=== PATIENT | female | born 1965 | race Caucasian/White ===

== ENCOUNTER 2016-08-18 16:00 | Observation (INO) ==
[2016-08-18] MEDS ORDERED: Nitroglycerin 0.4 MG TAB.SUBL SL ONE (16:40)
--- NOTE | 2016-08-18 16:43 | Emergency Department Note ---
Disposition Clinical Impression: Unstable angina Disposition: Admitted As Inpatient Condition: Good Referrals: Nickolas Zamora DO [Primary Care Provider] - Forms: ED Satisfaction Letter Time of Disposition: 18:48 Chest Pain HPI - General Chief Complaint: ED Chest Pain Stated Complaint: CP Source: patient, EMS Limitations: no limitations Vital Signs Reviewed: Yes Nursing Notes Reviewed: Yes - History of Present Illness HPI Narrative: 51-year-old female presents emergency room for chest pain. Sudden onset a few hours ago while sitting in a car. Located to the left anterior chest. Described as a pleuritic type pain. States the pain radiates in her left arm and left neck. She has a history of 7 cardiac stents. She states she has been compliant with her medications at home. Her last heart catheter was approximately 2 years ago from what she can remember. She rates her pain 8 out of 10. Sharp in nature. Worse with movement and deep breaths. Worse also with palpation. She denies any vomiting. No fevers. No cough or sputum production. She did not take any nitroglycerin today. She did receive 4 baby aspirin from the squad. Pt complaint: chest pain Severity scale (1-10): 7 - Related Data Home Medications Medication Instructions Recorded Confirmed Alprazolam [Xanax] 1 mg PO TID PRN 02/17/15 08/18/16 Gabapentin [Neurontin] 600 mg PO TID 02/17/15 08/18/16 Paroxetine [Paxil] 45 mg PO DAILY 02/17/15 08/18/16 Ranolazine [Ranexa] 1,000 mg PO BID 02/17/15 08/18/16 Albuterol Sulfate [Ventolin Hfa] 2 puff IH Q4H PRN 10/18/15 08/18/16 Pravastatin Sodium [Pravachol] 40 mg PO HS 07/24/16 08/18/16 BuPROPion XL (24 HR) [Wellbutrin 150 mg PO DAILY 08/18/16 08/18/16 XL] Carvedilol [Coreg] 6.25 mg PO BIDWM 08/18/16 08/18/16 Lisinopril 2.5 mg PO DAILY 08/18/16 08/18/16 Nitroglycerin [Nitrostat] 0.4 mg SL Q5M PRN 08/18/16 08/18/16 hydrOXYzine pamoate [HydrOXYzine 25 mg PO BID PRN 08/18/16 08/18/16 Pamoate] Previous Rx's Medication Instructions Recorded Aspirin Enteric Coated [Aspirin EC] 81 mg PO DAILY #30 tablet. 07/15/15 Furosemide [Lasix] 40 mg PO DAILY #30 tab 07/15/15 Potassium Chloride 10 meq PO DAILY #30 tab.er.prt 07/15/15 Prasugrel [Effient] 10 mg PO DAILY #30 tablet 07/15/15 Isosorbide MONOnitrate (24 HR) 60 mg PO DAILY #0 10/19/15 [Imdur] Allergies Allergy/AdvReac Type Severity Reaction Status Date / Time azithromycin Allergy Anaphylaxis Verified 07/24/16 19:59 latex Allergy Anaphylaxis Verified 07/24/16 19:59 Penicillins [PCN] Allergy Anaphylaxis Verified 07/24/16 19:59 adhesive tape AdvReac Rash Verified 07/24/16 19:59 Review of Systems: Gen.: No fevers or chills or new weakness Eyes: Denies double vision or any vision changes Ears: Denies any otalgia Pharynx: Denies sore throat CV: +chest pain Respiratory: Denies any cough or sputum production. No shortness of breath. GI: Denies any nausea, vomiting, diarrhea, constipation. Denies abdominal pain Neuro: Denies any headache. No problems with ambulation. No numbness. Skin: Denies any rashes or abrasions Psych: Denies any depression or suicidal or homicidal ideation Musculoskeletal: Denies any arthralgias or myalgias All systems ED: reviewed and negative except as stated. Chest Pain PMH - Past Medical History Medical history: Reports: asthma, atrial fibrillation, cardiomyopathy, CHF, coronary artery disease, fibromyalgia, hyperlipidemia, hypertension, kidney stones, migraine, myocardial infarction, TIA Surgical history: Reports: angioplasty/stent, coronary bypass (CABG) Psychiatric history: Reports: anxiety, bipolar, depression, panic disorder, PTSD - Social History Smoking Status: Never smoker Alcohol use: Reports: rarely Drug use: Reports: none Physical Exam - General Limitations: no limitations General appearance: alert, other (pt tearful) - Head Head exam: atraumatic, normocephalic - ENT ENT exam: normal exam - Neck Neck exam: Present: normal inspection - Chest Chest inspection: Present: tenderness (Tenderness of the left anterior chest wall.) - Respiratory Respiratory exam: Present: normal lung sounds bilaterally. Absent: respiratory distress, accessory muscle use - Cardiovascular Cardiovascular exam: Present: regular rate, normal rhythm, normal heart sounds - Abdominal Exam Abdominal exam: Present: soft, Non-Tender - Extremities Exam Extremities exam: Present: normal inspection - Back Exam Back exam: Present: normal inspection - Neurological Exam Neurological exam: Present: alert, oriented X3 - Psychiatric Psychiatric exam: Present: normal affect, normal mood - Skin Skin exam: Present: warm, dry, intact Course Vital Signs Temperature 98.3 F 08/18/16 16:02 Pulse Rate 68 08/18/16 16:02 Respiratory Rate 16 08/18/16 16:02 Blood Pressure 126/83 08/18/16 16:02 O2 Sat by Pulse Oximetry 99 08/18/16 16:02 Temperature 98.3 F 08/18/16 16:02 Pulse Rate 80 08/18/16 17:17 Respiratory Rate 16 08/18/16 17:17 Blood Pressure 109/59 08/18/16 17:17 O2 Sat by Pulse Oximetry 96 08/18/16 17:17 Oxygen Delivery Oxygen Delivery Room Air Chest Pain - MDM Narrative Medical decision making narrative: Significant coronary disease history. We will admit for observation. For set of enzymes are negative. EKG unremarkable. Chest x-ray negative. Nitroglycerin helped. Aspirin given already. - Medical Records Medical records reviewed: Yes I reviewed the patient's medical records. - Lab Data Lab results reviewed: Yes I reviewed the patient's lab results. Result diagrams: 08/18/16 17:09 08/18/16 17:09 Lab Results 08/18/16 08/18/16 08/18/16 Range/Units 17:09 17:09 17:09 WBC 5.7 (4.3-11.1) K/mcL RBC 4.54 (3.82-4.97) M/mcL Hgb 13.1 (11.5-15.4) g/dL Hct 38.6 (35.3-44.9) % MCV 85.0 (83.0-100.0) fL MCH 28.9 (28.0-33.3) pg MCHC 33.9 (31.6-35.5) g/dL RDW 13.7 (11.5-14.5) % Plt Count 188 (140-400) K/mcL MPV 11.1 (9.4-12.4) fL Immature Gran % 0.2 (0-4) % Seg Neutrophils % 61.7 % Lymphocytes % 25.6 % Monocytes % 7.2 % Eosinophils % 4.6 % Basophils % 0.7 % Neutrophils # 3.5 (1.6-8.9) K/mcL Lymphocytes # 1.5 (0.6-4.6) K/mcL Monocytes # 0.4 (0.0-1.3) K/mcL Eosinophils # 0.3 (0.0-0.6) K/mcL Basophils # 0.0 (0.0-0.2) K/mcL PT 13.1 H (9.4-12.1) Seconds INR 1.2 APTT 31.0 (26.0-36.0) Seconds D-Dimer 267 (0-500) ng/mLFEU Sodium 139 (136-145) mEq/L Potassium 3.8 (3.5-4.5) mEq/L Chloride 105 (98-109) mEq/L Carbon Dioxide 23 (19-29) mEq/L BUN 14 (7-20) mg/dL Creatinine 0.81 (0.57-1.11) mg/dL Est GFR ( Amer) > 60 (> 60) Est GFR (Non-Af Amer) > 60 (> 60) BUN/Creatinine Ratio 17 (6-26) Glucose 84 (70-99) mg/dL Calculated Osmolality 288 (280-300) Calcium 9.3 (8.6-10.8) mg/dL Troponin I (0-0.03) ng/mL 08/18/16 Range/Units 17:09 WBC (4.3-11.1) K/mcL RBC (3.82-4.97) M/mcL Hgb (11.5-15.4) g/dL Hct (35.3-44.9) % MCV (83.0-100.0) fL MCH (28.0-33.3) pg MCHC (31.6-35.5) g/dL RDW (11.5-14.5) % Plt Count (140-400) K/mcL MPV (9.4-12.4) fL Immature Gran % (0-4) % Seg Neutrophils % % Lymphocytes % % Monocytes % % Eosinophils % % Basophils % % Neutrophils # (1.6-8.9) K/mcL Lymphocytes # (0.6-4.6) K/mcL Monocytes # (0.0-1.3) K/mcL Eosinophils # (0.0-0.6) K/mcL Basophils # (0.0-0.2) K/mcL PT (9.4-12.1) Seconds INR APTT (26.0-36.0) Seconds D-Dimer (0-500) ng/mLFEU Sodium (136-145) mEq/L Potassium (3.5-4.5) mEq/L Chloride (98-109) mEq/L Carbon Dioxide (19-29) mEq/L BUN (7-20) mg/dL Creatinine (0.57-1.11) mg/dL Est GFR ( Amer) (> 60) Est GFR (Non-Af Amer) (> 60) BUN/Creatinine Ratio (6-26) Glucose (70-99) mg/dL Calculated Osmolality (280-300) Calcium (8.6-10.8) mg/dL Troponin I 0.01 (0-0.03) ng/mL - Radiology Data Radiology results reviewed: Yes I reviewed the patient's radiology results. - EKG Data EKG attestation: Yes I reviewed and interpreted this EKG. EKG results narrative: EKG shows a rate of 67. Normal sinus rhythm. Left axis deviation. SC interval 138. QRS 98. QTc 458. No significant changes compared to previous.
[2016-08-18 17:40] LABS: Basophils % 0.7 %; Eosinophils # 0.3 K/mcL (0.0-0.6); Eosinophils % 4.6 %; Hematocrit 38.6 % (35.3-44.9); Hemoglobin 13.1 g/dL (11.5-15.4); Immature Granulocytes % 0.2 % (0-4); Lymphocytes # 1.5 K/mcL (0.6-4.6); Lymphocytes % 25.6 %; Mean Corpuscular HGB Conc 33.9 g/dL (31.6-35.5); Mean Corpuscular Hemoglobin 28.9 pg (28.0-33.3); Mean Platelet Volume 11.1 fL (9.4-12.4); Monocytes # 0.4 K/mcL (0.0-1.3); Monocytes % 7.2 %; Neutrophils # 3.5 K/mcL (1.6-8.9); Platelet Count 188 K/mcL (140-400); Red Blood Count 4.54 M/mcL (3.82-4.97); Red Cell Distribution Width 13.7 % (11.5-14.5); Segmented Neutrophils % 61.7 %
[2016-08-18 17:47] LABS: INR 1.2; Prothrombin Time 13.1 Seconds (9.4-12.1)
[2016-08-18 17:56] LABS: BUN/Creatinine Ratio 17 (6-26); Blood Urea Nitrogen 14 mg/dL (7-20); Calcium 9.3 mg/dL (8.6-10.8); Carbon Dioxide 23 mEq/L (19-29); Chloride 105 mEq/L (98-109); Glucose 84 mg/dL (70-99); Osmolality,Calculated 288 (280-300); Potassium 3.8 mEq/L (3.5-4.5); Sodium 139 mEq/L (136-145); eGFR For African Americans > 60 (> 60); eGFR For Non-African Americans > 60 (> 60)
[2016-08-18] MEDS ORDERED: *HR* Morphine 2 MG/ML SYRINGE IVP ONE (18:35)
[2016-08-18] MEDS ORDERED: hydrOXYzine pamoate 25 MG CAPSULE PO PRN (21:09)
[2016-08-18] MEDS ORDERED: Nitroglycerin 0.4 MG TAB.SUBL SL PRN (21:09)
[2016-08-18] MEDS ORDERED: Ibuprofen 400 MG TABLET PO PRN (21:12)
[2016-08-18] MEDS ORDERED: Naloxone 0.4 MG/ML INJ IVP PRN (21:12)
--- NOTE | 2016-08-18 21:18 | Internal Med History&Physical ---
Date of Encounter: 08/18/16 Time of Encounter: 21:16 Assessment and Plan (1) Chest pain Current visit: No Status: Acute Schedule stress test in the morning Continue aspirin, Effient, hold beta [place] for now, Ranexa, Imdur, nitroglycerin as needed, stating Monitor with telemetry, troponins, lipid panel in the morning Limited echocardiogram, nothing by mouth after midnight for stress test Omeprazole for GI prophylaxis and Lovenox for DVT prophylaxis. The patient will be admitted for observation. She is a full code. Time spent on this admission 40 minutes. Qualifiers: Chest pain type: precordial chest pain Qualified Code(s): R07.2 - Precordial pain (2) Fibromyalgia Current visit: Yes Status: Acute Stable (3) A-fib Current visit: No Status: Acute anticoagulation, continues to take aspirin and effient Qualifiers: Atrial fibrillation type: paroxysmal Qualified Code(s): I48.0 - Paroxysmal atrial fibrillation (4) CAD in [place] artery Current visit: No Status: Acute Hold beta [place]/carvedilol for stress test in the morning (5) Anxiety Current visit: No Status: Chronic (6) HTN (hypertension) Current visit: No Status: Chronic Stable Qualifiers: Hypertension type: essential hypertension Qualified Code(s): I10 - Essential (primary) hypertension Internal Medicine - H&P: HPI Chief complaint: Chest pain Admitted From: Emergency Dept History of present illness: Ms. Bartlett is a 51 year old female with a past medical history of CABG with history of 7 stents, last stent was in July 2015 where she had a drug-eluting stent on the SVG to PDA, hypertension, hyperlipidemia, systolic CHF with an ejection fraction of 35-40% and ischemic cardiomyopathy, patient started complaining of left-sided chest pressure radiated to the left neck at 2:30 in the afternoon while she was sitting in the car, lasted for an hour was an 8 out of 10 in intensity and now it decreased down to 5 out of 10 in intensity. She says that she has fibromyalgia and also she gets confused with the types of pains that she has at the moment. Has been under a lot of stress lately. Her first troponin is unremarkable, chest x-ray is not showing any acute cardiopulmonary disease and EKG is unchanged. Patient received aspirin. [place] some palpitations earlier today and some shortness of breath. Past Med Surg Social Fam HX - Past Medical History Medical history: asthma, atrial fibrillation (Not on anticoagulation), cardiomyopathy, CHF (Systolic CHF with ejection fraction of 35-40%), coronary artery disease (History of CABG and 7 stents), fibromyalgia, hyperlipidemia, hypertension, kidney stones, migraine, myocardial infarction, TIA, other ( Fibromyalgia, nephrolithiasis, migraines, TIAs, bipolar disorder, PTSD, anxiety , depression, neuropathy, asthma, paroxysmal atrial fibrillation not on anticoagulation) Psychiatric history: anxiety, bipolar, depression, panic disorder, PTSD - Past Surgical History Surgical History: angioplasty/stent, , cholecystectomy, coronary bypass (CABG) - Social History Smoking Status: Never smoker Smokeless Tobacco Status: No Alcohol use: rarely Drug use: none - Family History Mother Living Status: Hx Family Cardiac Disorders: Yes Hx Family Respiratory Disorders: No Hx Family Cancer: No Hx Family GI Disorders: No Hx Family Endocrine Disorder: Yes (Diabetic) Hx Family Neuromuscular Disorders: Yes Hx Family Neurologic Disorders: Yes Hx Family HEENT Disorders: No Hx Family Autoimmune Disorders: No Father Living Status: Hx Family Cardiac Disorders: Yes Hx Family Neurologic Disorders: Yes - Additional Family History Additional family history: Mother with diabetes and CAD, father with heart disease Internal Medicine - H&P: Meds Alprazolam [Xanax] 1 mg PO TID PRN 02/17/15 [History] Gabapentin [Neurontin] 600 mg PO TID 02/17/15 [History] Paroxetine [Paxil] 45 mg PO DAILY 02/17/15 [History] Ranolazine [Ranexa] 1,000 mg PO BID 02/17/15 [History] Aspirin Enteric Coated [Aspirin EC] 81 mg PO DAILY #30 tablet.dr 07/15/15 [Rx] Furosemide [Lasix] 40 mg PO DAILY #30 tab 07/15/15 [Rx] Potassium Chloride 10 meq PO DAILY #30 tab.er.prt 07/15/15 [Rx] Prasugrel [Effient] 10 mg PO DAILY #30 tablet 07/15/15 [Rx] Albuterol Sulfate [Ventolin Hfa] 2 puff IH Q4H PRN 10/18/15 [History] Isosorbide MONOnitrate (24 HR) [Imdur] 60 mg PO DAILY #0 10/19/15 [Rx] Pravastatin Sodium [Pravachol] 40 mg PO HS 07/24/16 [History] BuPROPion XL (24 HR) [Wellbutrin XL] 150 mg PO DAILY 08/18/16 [History] Carvedilol [Coreg] 6.25 mg PO BIDWM 08/18/16 [History] Lisinopril 2.5 mg PO DAILY 08/18/16 [History] Nitroglycerin [Nitrostat] 0.4 mg SL Q5M PRN 08/18/16 [History] hydrOXYzine pamoate [HydrOXYzine Pamoate] 25 mg PO BID PRN 08/18/16 [History] Allergies azithromycin Allergy (Verified 07/24/16 19:59) Anaphylaxis latex Allergy (Verified 07/24/16 19:59) Anaphylaxis Penicillins [PCN] Allergy (Verified 07/24/16 19:59) Anaphylaxis adhesive tape Adverse Reaction (Verified 07/24/16 19:59) Rash All Systems PM: A 10-system review of systems was performed and is negative for pertinent findings except as documented above in the HPI. Review of systems: Continues to have chest pressure. Other systems out of the 10 reviewed were negative - Constitutional Vitals: Temp Pulse Resp BP Pulse Ox 98.3 F 69 24 124/81 99 08/18/16 21:02 08/18/16 21:02 08/18/16 21:02 08/18/16 21:02 08/18/16 21:02 General appearance: Present: A&O X 3, obese - Head Head exam: Present: atraumatic, normocephalic - Eye Eye exam: Present: PERRL, conjuntiva pink, sclera anicteric Pupils: Present: PERRL - Neck Neck exam general surgery: Present: supple, trachea midline. Absent: lymphadenopathy - Respiratory Respiratory exam: Present: CTAB. Absent: accessory muscle use, rales, rhonchi, wheezes - Cardiovascular Cardiovascular exam: Present: RRR, +S1, +S2. Absent: diastolic murmur, gallop, rubs, systolic murmur - GI/Abdominal GI/Abdominal exam: Present: normal bowel sounds, soft, no peritoneal signs. Absent: distended, tenderness - Extremities Exam Extremities exam: Present: warm, radial pulses palpable and symetrical. Absent : calf tenderness, cyanotic, pedal edema - Neurological Exam Neurological exam: Present: CN II-XII intact, oriented X3, no focal deficits. Absent: pronater drift, facial droop, speech deficit - Skin Skin exam: Present: dry, intact Internal Med - H&P Results - Labs CBC & Chem 7: 08/18/16 17:09 08/18/16 17:09
[2016-08-18] MEDS: ALPRAZolam 1 MG TABLET PO PRN (21:51)
[2016-08-18] MEDS: *HR* OxyCODONE Immed Rel 5 MG TABLET PO PRN (21:51)
[2016-08-18] MEDS: 0.9 % Sodium Chloride 1,000 ML IVC SCH (21:51)
[2016-08-18] MEDS: *HR* Enoxaparin 40 MG/0.4 ML SYRINGE SQ SCH (21:52)
[2016-08-18] MEDS: Ondansetron 4 MG/2 ML VIAL IVP PRN (21:52)
[2016-08-19] MEDS: *HR* OxyCODONE Immed Rel 5 MG TABLET PO PRN ×4 (04:29→23:26)
[2016-08-19 04:45] LABS: BUN/Creatinine Ratio 16 (6-26); Blood Urea Nitrogen 15 mg/dL (7-20); Calcium 9.1 mg/dL (8.6-10.8); Carbon Dioxide 30 mEq/L (19-29); Chloride 106 mEq/L (98-109); Cholesterol 224 mg/dL (< 200); Glucose 95 mg/dL (70-99); HDL Cholesterol 45 mg/dL (40-59); LDL Cholesterol,Calculated 140 mg/dL (0-99); Osmolality,Calculated 291 (280-300); Potassium 4.3 mEq/L (3.5-4.5); Sodium 140 mEq/L (136-145); Triglycerides 194 mg/dL (< 150); eGFR For African Americans > 60 (> 60); eGFR For Non-African Americans > 60 (> 60)
[2016-08-19] MEDS: *HR* Enoxaparin 40 MG/0.4 ML SYRINGE SQ SCH (06:08)
[2016-08-19] MEDS ORDERED: Regadenoson 0.4 MG/5 ML SYRINGE IVP ONE (06:22)
[2016-08-19] MEDS ORDERED: Furosemide 20 MG TABLET PO SCH (09:00)
[2016-08-19] MEDS: Ondansetron 4 MG/2 ML VIAL IVP PRN (10:30)
--- NOTE | 2016-08-19 11:14 | Electrocardiograph Report ---
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
[2016-08-19] MEDS: Acetaminophen 325 MG TABLET PO PRN ×2 (11:30→22:23)
--- NOTE | 2016-08-19 12:22 | Nuclear Medicine Stress Report ---
Regadenoson Nuclear Stress Name: Mandi Bartlett Date of Study: 08/19/2016 Date: 1965 Ht: 61.0 in Medical Record#: [id number] Age: 51 Wt: 185.0 lb Gender: Female Order #: [id number] Location: [facility] Room: [facility] Supervising Provider: Vikash Magallon CNP Reading Physician: Ad Sawyer MD, LOCATED [facility]IN [facility] Ordering Physician: Gale Mann CNP Primary Care Physician: Nickolas Zamora DO Stress Technologist: Annika Swenson, LANGUAGE INSTRUCTOR,[facility] [employer] I Laborer: Gavin Mohamud Indications: Chest Pain, Coronary Artery Disease Impression: Patient reported mild-moderate chest pain prior to the study. Chest pain did not change during the stress test. Gated LVEF = 41%. Medium-large, moderate-severe intensity, predominantly fixed perfusion defect involving the mid-apical anterior wall, mid anteroseptum, apical septum, and apex. Findings consistent with myocardial infarction with mild delfina-infarct ischemia. Small-medium, moderate intensity, reversible perfusion defect involving the basal-mid inferolateral wall. Findings consistent with reversible myocardial ischemia. Abnormal results were discussed with the primary service who requested cardiology consult. Cardiology consult team is aware. History: Hypertension Hypercholesteremia Prior PCI History of Coronary Artery Bypass Surgery Stress Test Summary: Stress Test Type: Pharmacologic Regadenoson 0.4mg/5ml given IV Baseline Information: Initial Heart Rate: 66 Blood Pressure: 108/76 Stress Information: Test Terminated Due to (primary): As per protocol Maximum Blood Pressure: 104/62 Maximum Heart Rate: 81 Percent Maximum Heart Rate Achieved: 48 Double Product: [id number] Symptoms: Chest pain Nuclear Summary: SPECT myocardial perfusion imaging using Tc99m Sestamibi given intravenously was performed at rest and following cardiac stress testing. The resting images were obtained following initial dose of 11.8 mCi. Following stress an additional dose of 33.9 mCi was given at peak exercise or 30 seconds post regadenoson infusion. Findings: Stress Note * Resting ECG demonstrated sinus rhythm, low voltage in precordial leads, non-specific ST-T wave abnormality. * No baseline arrhythmias were noted. * Patient reported mild-moderate chest pain prior to the study. Chest pain did not change during the stress test. * No arrhythmias were noted during stress. * No significant ECG changes with regadenoson. Hemodynamic responses * Normal hemodynamic responses to pharmacologic stress. Study Quality * Study quality is good. Gated EF % * Gated LVEF = 41%. Left Ventricle * The left ventricle is not dilated. * Medium-large, moderate-severe intensity, predominantly fixed perfusion defect involving the mid-apical anterior wall, mid anteroseptum, apical septum, and apex. Findings consistent with myocardial infarction with mild delfina-infarct ischemia. * Small-medium, moderate intensity, reversible perfusion defect involving the basal-mid inferolateral wall. Findings consistent with reversible myocardial ischemia. TID * No evidence of transient ischemic dilatation. Updated by Ad Sawyer MD, FACC on 08/19/2016 12:13:47 PM electronically signed on 08/19/2016 12:14:50 PM with status of Final
[2016-08-19] MEDS: Isosorbide MONOnitrate (24 HR) 60 MG TAB.ER.24H PO SCH (13:30)
[2016-08-19] MEDS: Ranolazine 500 MG TAB.ER.12H PO SCH ×2 (13:31→20:54)
[2016-08-19] MEDS: Aspirin Enteric Coated 81 MG Tablet PO SCH (13:31)
[2016-08-19] MEDS: BuPROPion XL (24 HR) 150 MG TABLET PO SCH (13:31)
[2016-08-19] MEDS: Gabapentin 300 MG CAPSULE PO SCH ×3 (13:32→20:53)
--- NOTE | 2016-08-19 13:36 | Cardiology Consult Note ---
Date of Encounter: 08/19/16 Time of Encounter: 13:10 Assessment and Plan (1) Chest pain Current Visit: Yes Status: Acute Patient presents with atypical chest pain. Troponin negative x3. ECG unchanged from previous. Abnormal nuclear stress test findings correlate with known obstructive CAD not amendable to revascularization. C and stress test reviewed with interventional Cardiology. She is now chest pain free; reports presenting symptoms were not similar to previous NH; suspect symptoms precipitated by prolonged heat exposure. She is agreeable to medical management, will continue current home CV medications including asa, statin, betablocker, plavix, nitrates, and ranexa. NO further cardiac testing necessary at this time. Close outpatient follow-up with [facility], follows with Dr. Cevallos. Will coordinate appt. Qualifiers: Chest pain type: chest pain on breathing Qualified Code(s): R07.1 - Chest pain on breathing (2) Ischemic cardiomyopathy Current Visit: Yes Status: Chronic Hx of severe 3v CAD s/p CABG, PCI. Most recent TTE EF 35-40%. Appears euvolemic upon exam. Gated EF per nuclear stress=41%. Continue GDMT for CHF including betablocker, ACEi, diuretics, and nitrates. Will resume home coreg now. Follow-up in the outpatient setting with Dr. Cevallos. Discussion w patient/family: The assessment and plan as outlined above was discussed with the patient and/or family members who expressed understanding and agreement. All questions were answered. Thank you for involving us in the care of your patient. Please call with any questions. The patient will be discussed and reviewed with Dr. Mitesh Babb, changes to be made accordingly. History of Present Illness Consult date: 08/19/16 Requesting physician: Hermelinda Sommer Consult reason: Abnormal stress test Chief complaint: chest pain History of present illness: Ms. Bartlett is a 51 year old female with PMHx significant for CAD s/p CABG (2006 ) and subsequent PCI, ICMP with systolic dysfunction, dyslipidemia, HTN, and fibromyalgia who presented to the [facility] with left-sided chest fullness/ heaviness. Reports discomfort radiated down arm which felt heavy; associated symptoms include fatigue and dyspnea. Symptoms started after she had been sitting in a car outside in the heat for nearly 1 hour yesterday evening. Reports symptoms improved with IV morphine given in the ED; at that time, arm pain was worsened with movement or deep breaths. ECG unchanged from prior, troponin negative. Nuclear stress test ordered today and found to be abnormal-- Cardiology consulted. Upon exam, she is chest pain free. Reports generalized body aches and pain; states stems from fibromyalgia. Previous studies / procedures: TTE 12/19/2013: EF 40%. Moderate diastolic dysfunction. No significant valvular dysfunction. [facility] 08/10/2014: Left main normal. LAD proximal 100% stenosis. Circumflex mid 100% stenosis. RCA proximal 100% stenosis. RPDA 80% stenosis (2 BMSs placed). SAVAGE to mid LAD patent. Sequential SVG to OM1, OM 2 patent. SVG to RPDA patent. EF 35%. TTE 07/13/2015: EF 30-35%. Severe global hypokinesis. Apical segments not well visualized. No significant valvular dysfunction. RVSP was not well obtained. [facility] 07/12/2015: Left main normal. LAD mid 100% stenosis. Circumflex proximal 80 % and mid 99% stenosis (left and left collaterals). RCA 100% stenosis. SAVAGE to LAD patent. Sequential saphenous vein graft to OM1 and OM 2 occluded (attempted PCI performed, but was unsuccessful. SVG to PDA patent, but distal segment has 80% ISR. [facility] 07/13/2015: Successful DAMEON placement in the body of the SVG to RPDA graft ( within previous stent) TTE 10/12/2015: EF 35-40%. Mild diastolic dysfunction. No significant valvular dysfunction. Past Med Surg Social Fam HX - Past Medical History Attestation: Yes The following information was validated with the patient. Source: patient, old records reviewed Medical history: asthma, cardiomyopathy, CHF (Systolic CHF with ejection fraction of 35-40%), coronary artery disease (History of CABG and 7 stents), fibromyalgia, hyperlipidemia, hypertension, kidney stones, migraine, myocardial infarction, TIA, other (Fibromyalgia, nephrolithiasis, migraines, TIAs, bipolar disorder, PTSD, anxiety, depression, neuropathy, asthma) Psychiatric history: anxiety, bipolar, depression, panic disorder, PTSD - Past Surgical History Surgical History: angioplasty/stent, , cholecystectomy, coronary bypass (CABG) - Social History Smoking Status: Never smoker Smokeless Tobacco Status: No Alcohol use: rarely Drug use: none - Family History Mother Living Status: Hx Family Cardiac Disorders: Yes Hx Family Respiratory Disorders: No Hx Family Cancer: No Hx Family GI Disorders: No Hx Family Endocrine Disorder: Yes (Diabetic) Hx Family Musculoskeletal Disorders: No Hx Family Neuromuscular Disorders: Yes Hx Family Neurologic Disorders: Yes Hx Family HEENT Disorders: No Hx Family Autoimmune Disorders: No Father Living Status: Hx Family Cardiac Disorders: Yes Hx Family Neurologic Disorders: Yes Medications and Allergies Alprazolam [Xanax] 1 mg PO TID PRN 02/17/15 [History] Gabapentin [Neurontin] 600 mg PO TID 02/17/15 [History] Paroxetine [Paxil] 45 mg PO DAILY 02/17/15 [History] Ranolazine [Ranexa] 1,000 mg PO BID 02/17/15 [History] Aspirin Enteric Coated [Aspirin EC] 81 mg PO DAILY #30 tablet.dr 07/15/15 [Rx] Furosemide [Lasix] 40 mg PO DAILY #30 tab 07/15/15 [Rx] Potassium Chloride 10 meq PO DAILY #30 tab.er.prt 07/15/15 [Rx] Prasugrel [Effient] 10 mg PO DAILY #30 tablet 07/15/15 [Rx] Albuterol Sulfate [Ventolin Hfa] 2 puff IH Q4H PRN 10/18/15 [History] Isosorbide MONOnitrate (24 HR) [Imdur] 60 mg PO DAILY #0 10/19/15 [Rx] Pravastatin Sodium [Pravachol] 40 mg PO HS 07/24/16 [History] BuPROPion XL (24 HR) [Wellbutrin XL] 150 mg PO DAILY 08/18/16 [History] Carvedilol [Coreg] 6.25 mg PO BIDWM 08/18/16 [History] Lisinopril 2.5 mg PO DAILY 08/18/16 [History] Nitroglycerin [Nitrostat] 0.4 mg SL Q5M PRN 08/18/16 [History] hydrOXYzine pamoate [HydrOXYzine Pamoate] 25 mg PO BID PRN 08/18/16 [History] Allergies azithromycin Allergy (Verified 07/24/16 19:59) Anaphylaxis latex Allergy (Verified 07/24/16 19:59) Anaphylaxis Penicillins [PCN] Allergy (Verified 07/24/16 19:59) Anaphylaxis adhesive tape Adverse Reaction (Verified 07/24/16 19:59) Rash All Systems Review: A 10-system review of systems was performed and is negative for pertinent findings except as documented above in the HPI. - Cardiovascular Cardiovascular: as per HPI Physical Examination Vital Signs, Last 4 Hours Temp Pulse Resp BP Pulse Ox 08/19/16 12:12 99/56 08/19/16 11:13 98.2 F 71 14 96/65 98 General: Conversant, No Apparent Distress HEENT: Atraumatic, Normocephaly, Mucus Membranes Moist Cardiac: Reg Rate and Rhythm, Normal S1 and S2 Lungs: Normal Breath Sounds, No Wheeze, Rales, Rhonchi Neuro: Alert and responsive, No focal deficits noted Abdomen: Soft, Non-Tender Skin: No rashes noted on visualized skin Musculoskeletal: No Chest Wall Tenderness Extremities: No Edema, Normal Pulses Results 08/18/16 17:09 08/19/16 03:45 Lab Results 08/18/16 08/19/16 08/19/16 21:40 03:45 03:45 Sodium 140 Potassium 4.3 Chloride 106 Carbon Dioxide 30 H BUN 15 Creatinine 0.92 Glucose 95 Calcium 9.1 Troponin I 0.01 0.01 Active Medications Acetaminophen (Tylenol) 650 mg PO Q6HR PRN PRN Reason: Mild Pain (1-3) Stop: 02/17/17 21:13 Last Admin: 08/19/16 11:30 Dose: 650 mg Alprazolam (Xanax) 1 mg PO TID PRN; Protocol PRN Reason: Anxiety Stop: 02/17/17 21:10 Last Admin: 08/18/16 21:51 Dose: 1 mg Aspirin (Aspirin Ec) 81 mg PO DAILY [facility] Stop: 02/18/17 09:01 Last Admin: 08/19/16 13:31 Dose: 81 mg Bupropion HCl (Wellbutrin Xl) 150 mg PO DAILY [facility] Stop: 02/18/17 09:01 Last Admin: 08/19/16 13:31 Dose: 150 mg Enoxaparin Sodium (Lovenox) 40 mg SQ 0600 [facility] PRN Reason: Protocol Stop: 02/17/17 21:25 Last Admin: 08/19/16 06:08 Dose: 40 mg Furosemide (Lasix) 40 mg PO DAILY [facility] Stop: 02/18/17 09:01 Last Admin: 08/19/16 13:32 Dose: Not Given Gabapentin (Neurontin) 600 mg PO TID [facility] Stop: 02/18/17 09:01 Last Admin: 08/19/16 13:34 Dose: Not Given Hydroxyzine Pamoate (Hydroxyzine Pamoate) 25 mg PO BID PRN PRN Reason: Anxiety Stop: 02/17/17 21:10 Sodium Chloride (0.9 % Sodium Chloride) 1,000 mls @ 60 mls/hr IVC .[id number] [facility] Stop: 02/17/17 21:16 Last Admin: 08/18/16 21:51 Dose: 60 mls/hr Ibuprofen (Motrin) 400 mg PO Q6HR PRN PRN Reason: Mild Pain (1-3) Stop: 02/17/17 21:13 Isosorbide Mononitrate (Imdur) 60 mg PO DAILY [facility] Stop: 02/18/17 09:01 Last Admin: 08/19/16 13:30 Dose: 60 mg Lisinopril (Zestril) 2.5 mg PO DAILY [facility] Stop: 02/18/17 09:01 Last Admin: 08/19/16 13:32 Dose: Not Given Naloxone HCl (Narcan) 0.4 mg IVP Q2MIN PRN PRN Reason: Opioid Reversal Stop: 02/17/17 21:13 Nitroglycerin (Nitroglycerin) 0.4 mg SL Q5M PRN PRN Reason: Chest Pain Stop: 02/17/17 21:10 Omeprazole (Prilosec) 20 mg PO DAILY@0630 [facility] PRN Reason: Protocol Stop: 02/18/17 06:31 Last Admin: 08/19/16 06:08 Dose: 20 mg Ondansetron HCl (Zofran) 4 mg IVP Q8HR PRN PRN Reason: Nausea And Vomiting Stop: 02/17/17 21:13 Last Admin: 08/19/16 10:30 Dose: 4 mg Oxycodone HCl (Roxicodone) 5 mg PO Q6HR PRN PRN Reason: Moderate Pain (4-6) Stop: 02/17/17 21:13 Last Admin: 08/19/16 10:31 Dose: 5 mg Paroxetine HCl (Paxil) 45 mg PO DAILY [facility] PRN Reason: Protocol Stop: 02/18/17 09:01 Last Admin: 08/19/16 13:30 Dose: 45 mg Potassium Chloride (Potassium Chloride) 10 meq PO DAILY [facility] Stop: 02/18/17 09:01 Last Admin: 08/19/16 13:31 Dose: 10 meq Prasugrel (Effient) 10 mg PO DAILY [facility] Stop: 02/18/17 09:01 Last Admin: 08/19/16 13:31 Dose: 10 mg Ranolazine (Ranexa) 1,000 mg PO BID [facility] Stop: 02/18/17 09:01 Last Admin: 08/19/16 13:31 Dose: 1,000 mg Simvastatin (Zocor) 40 mg PO HS [facility] Stop: 02/18/17 21:01 - Imaging and Cardiology Stress Test: report reviewed Echo: report reviewed Cardiac cath: report reviewed Other Results: Tele review: avg HR=77 SR. No significant event noted. Min=55 bpm. - EKG Interpretation EKG results cardiology: personally reviewed Consult Discharge Plan - Plan Referrals: Nickolas Zamora DO [Primary Care Provider] -
--- NOTE | 2016-08-19 18:05 | Internal Med Progress Note ---
Date of Encounter: 08/19/16 Time of Encounter: 13:30 - Assessment and plan (1) Chest pain Current Visit: Yes Status: Acute Assessment and plan: Patient continues to endorse chest pressure. Chest x-ray negative. Troponin negative 3. No acute ECG changes. Abnormal stress test noted, cardiology brought on board who proceeded with medical management and have cleared her for outpatient follow-up. Patient still having chest pressure, will observe her overnight. She is requesting narcotic pain medication which is not indicated at this time. Patient stating this chest pain does not feel similar to her prior bouts of chest pain. Continue ibuprofen and oxycodone for pain. ITS Impressions Chest X-Ray 08/18/16 16:40 IMPRESSION: No evidence of acute cardiopulmonary disease. D/ / Adam Westbrook MD / Adam Westbrook MD Interpreting Provider: Adam Westbrook MD Regadenosen nuclear stress test impression: Patient reported mild-moderate chest pain prior to the study. Chest pain did not change during the stress test. Gated LVEF equals 41%. Medium-large, moderate-severe intensity, predominantly fixed perfusion defect involving the mid-apical anterior wall, mid anterioseptum, apical septum, and apex. Findings consistent with myocardial infarction with mild delfina-infarct ischemia. Small-medium, moderate intensity, reversible perfusion defect involving the basal-mid inferior lateral wall. Findings consistent with reversible myocardial ischemia. Qualifiers: Chest pain type: chest pain on breathing Qualified Code(s): R07.1 - Chest pain on breathing (2) Ischemic cardiomyopathy Current Visit: Yes Status: Chronic Assessment and plan: Currently euvolemic on examination. Gentle IV fluids for hypotension. Most recent echocardiogram with ejection fraction of 35-40%. History of severe 3 vessel CAD status post CABG and stent 7. Abnormal stress test noted. Cardiology on board, recommend medical management. (3) Fibromyalgia Current Visit: Yes Status: Chronic Assessment and plan: Patient complaining of her chronic fibromyalgia pain including her neck, her head, and both legs. OARRS report checks out okay. (4) DVT prophylaxis Current Visit: No Status: Acute Assessment and plan: Subcutaneous Lovenox (5) Anxiety Current Visit: No Status: Chronic Assessment and plan: Continue home Xanax (6) CAD (coronary artery disease) Current Visit: No Status: Chronic Qualifiers: Coronary Disease-Associated Artery/Lesion type: bypass graft [place] vs. transplanted heart: [place] heart Associated angina: with stable angina Qualified Code(s): I25.708 - Atherosclerosis of coronary artery bypass graft(s) , unspecified, with other forms of angina pectoris (7) HTN (hypertension) Current Visit: No Status: Chronic Assessment and plan: Has been hypotensive since arrival. At home, patient is on lisinopril 2.5 mg daily, Ranexa 1000 mg twice a day, Imdur 60 mg daily, furosemide 40 mg daily, carvedilol 6.25 mg twice a day. Heart rate is stable with rate in the low 70s. We will hold her lisinopril, furosemide, and her carvedilol and monitor closely. Gentle IV fluids for hypotension Qualifiers: Hypertension type: essential hypertension Qualified Code(s): I10 - Essential (primary) hypertension (8) Hypotension Current Visit: No Status: Acute Assessment and plan: See prior note for hypertension Qualifiers: Hypotension type: unspecified hypotension type Qualified Code(s): I95.9 - Hypotension, unspecified (9) Hx of CABG Current Visit: No Status: Chronic - Subjective Interval history: Patient seen and examined. On examination, patient initially asleep in bed. Patient awakened easily to voice and complained of "fibromyalgia pain." She complained of pain to her head, neck, legs. She also endorsed continued chest pressure and was asking for IV pain medication. - Constitutional Vitals: Temp Pulse Resp BP Pulse Ox 97.4 F L 73 16 99/65 98 08/19/16 14:55 08/19/16 14:55 08/19/16 14:55 08/19/16 15:01 08/19/16 14:55 General appearance: Present: mild distress, A&O X 3, answers questions appropriately - Head Head exam: Present: atraumatic, normocephalic - Eye Eye exam: Present: PERRL, conjuntiva pink, sclera anicteric Pupils: Present: PERRL - Neck Neck exam general surgery: Present: supple, trachea midline. Absent: lymphadenopathy - Respiratory Respiratory exam: Present: CTAB. Absent: accessory muscle use, rales, respiratory distress, rhonchi, wheezes - Cardiovascular Cardiovascular exam: Present: RRR, +S1, +S2. Absent: diastolic murmur, gallop, rubs, systolic murmur - GI/Abdominal GI/Abdominal exam: Present: normal bowel sounds, soft, no peritoneal signs. Absent: distended, tenderness - Extremities Exam Extremities exam: Present: warm, radial pulses palpable and symetrical. Absent : calf tenderness, cyanotic, pedal edema - Neurological Exam Neurological exam: Present: alert, CN II-XII intact, oriented X3, no focal deficits, strengths equal and symetr throughout. Absent: pronater drift, facial droop, speech deficit - Skin Skin exam: Present: dry, intact, pallor, warm Internal Medicine: Result - Labs CBC & Chem 7: 08/18/16 17:09 08/19/16 03:45 Labs: BMP 08/19/16 03:45 Sodium 140 Potassium 4.3 Chloride 106 Carbon Dioxide 30 H BUN 15 Creatinine 0.92 Glucose 95 Calcium 9.1 Cardiac Enzymes 08/18/16 08/19/16 Range/Units 21:40 03:45 Troponin I 0.01 0.01 (0-0.03) ng/mL - ABG Interpretation ABG results: PT/INR, D-dimer PT 13.1 Seconds (9.4-12.1) H 08/18/16 17:09 D-Dimer 267 ng/mLFEU (0-500) 08/18/16 17:09 Consult Discharge Plan - Plan Referrals: Nickolas Zamora DO [Primary Care Provider] - 08/26/16 3:00 pm
[2016-08-19] MEDS: 0.9 % Sodium Chloride 1,000 ML IVC SCH (19:15)
[2016-08-19] MEDS: ALPRAZolam 1 MG TABLET PO PRN (20:58)
[2016-08-20] MEDS: *HR* OxyCODONE Immed Rel 5 MG TABLET PO PRN ×2 (05:58→13:03)
[2016-08-20] MEDS: *HR* Enoxaparin 40 MG/0.4 ML SYRINGE SQ SCH (05:58)
[2016-08-20] MEDS: Aspirin Enteric Coated 81 MG Tablet PO SCH (08:44)
[2016-08-20] MEDS: ALPRAZolam 1 MG TABLET PO PRN (08:44)
[2016-08-20] MEDS: Ranolazine 500 MG TAB.ER.12H PO SCH (08:44)
[2016-08-20] MEDS: Isosorbide MONOnitrate (24 HR) 60 MG TAB.ER.24H PO SCH (08:44)
[2016-08-20] MEDS: BuPROPion XL (24 HR) 150 MG TABLET PO SCH (08:45)
[2016-08-20] MEDS: Gabapentin 300 MG CAPSULE PO SCH ×2 (08:45→14:48)
[2016-08-20] MEDS: Ondansetron 4 MG/2 ML VIAL IVP PRN (08:50)
[2016-08-20 16:21] VITALS: BP 107/73
--- NOTE | 2016-08-20 16:23 | Discharge Summary ---
Date of Encounter: 08/20/16 Time of Encounter: 10:30 - Discharge Diagnosis (1) Chest pain Priority: Primary Status: Acute Comments: Patient continues to endorse chest pressure. Chest x-ray negative. Troponin negative 3. No acute ECG changes. Abnormal stress test noted, cardiology brought on board who proceeded with medical management and have cleared her for outpatient follow-up. Of note, patient continually requesting narcotic pain medication. Qualifiers: Chest pain type: chest pain on breathing Qualified Code(s): R07.1 - Chest pain on breathing (2) Ischemic cardiomyopathy Priority: Secondary Status: Chronic Comments: Euvolemic on examination while admitted. Did receive gentle IV fluids for hypotension. Most recent echocardiogram with ejection fraction of 35-40%. History of severe 3 vessel CAD status post CABG and stent 7. Abnormal stress test noted. Cardiology on board, recommend medical management. (3) Fibromyalgia Priority: Secondary Status: Chronic (4) DVT prophylaxis Priority: Primary Status: Acute Comments: Subcutaneous Lovenox while admitted (5) Anxiety Priority: Secondary Status: Chronic (6) CAD (coronary artery disease) Priority: Secondary Status: Chronic Qualifiers: Coronary Disease-Associated Artery/Lesion type: bypass graft [place] vs. transplanted heart: [place] heart Associated angina: with stable angina Qualified Code(s): I25.708 - Atherosclerosis of coronary artery bypass graft(s) , unspecified, with other forms of angina pectoris (7) HTN (hypertension) Priority: Secondary Status: Chronic Comments: Hypotensive throughout this admission despite having her lisinopril, furosemide , and her carvedilol held. We will have her hold these medications upon discharge and have her follow up closely outpatient. Recommend daily blood pressure checks at home and keeping a log. Qualifiers: Hypertension type: essential hypertension Qualified Code(s): I10 - Essential (primary) hypertension (8) Hypotension Priority: Primary Status: Acute Comments: See prior note for hypertension Qualifiers: Hypotension type: unspecified hypotension type Qualified Code(s): I95.9 - Hypotension, unspecified (9) Hx of CABG Priority: Secondary Status: Chronic - Discharge Medications Prescriptions: Omeprazole [PriLOSEC] 20 mg PO DAILY@0630 #30 capsule. Ondansetron HCl 4 mg PO Q8H PRN #12 tablet PRN Reason: Nausea And Vomiting Home Medications: Alprazolam [Xanax] 1 mg PO TID PRN 12/12/15 [History] Gabapentin [Neurontin] 600 mg PO TID 02/17/15 [History] Paroxetine [Paxil] 45 mg PO DAILY 02/17/15 [History] Ranolazine [Ranexa] 1,000 mg PO BID 02/17/15 [History] Aspirin Enteric Coated [Aspirin EC] 81 mg PO DAILY #30 tablet. 07/15/15 [Rx] Prasugrel [Effient] 10 mg PO DAILY #30 tablet 07/15/15 [Rx] Albuterol Sulfate [Ventolin Hfa] 2 puff IH Q4H PRN 10/18/15 [History] Isosorbide MONOnitrate (24 HR) [Imdur] 60 mg PO DAILY #0 10/19/15 [Rx] Pravastatin Sodium [Pravachol] 40 mg PO HS 07/24/16 [History] BuPROPion XL (24 HR) [Wellbutrin Xl] 150 mg PO DAILY 08/18/16 [History] Nitroglycerin [Nitrostat] 0.4 mg SL Q5M PRN 08/18/16 [History] hydrOXYzine pamoate [HydrOXYzine Pamoate] 25 mg PO BID PRN 08/18/16 [History] Omeprazole [PriLOSEC] 20 mg PO DAILY@0630 #30 capsule. 08/20/16 [Rx] Ondansetron HCl 4 mg PO Q8H PRN #12 tablet 08/20/16 [Rx] Allergies/Adverse Reactions: Allergies azithromycin Allergy (Verified 07/24/16 19:59) Anaphylaxis latex Allergy (Verified 07/24/16 19:59) Anaphylaxis Penicillins [PCN] Allergy (Verified 07/24/16 19:59) Anaphylaxis adhesive tape Adverse Reaction (Verified 07/24/16 19:59) Rash Procedures/tests Complete & Pending: Procedures Performed prior 72 hours Category Date Time Status NM theresa perf SPECT multi [NM] Routine Exams 08/18/16 21:15 Taken SP pharm nuclear stress Routine Y 08/18/16 21:14 Completed Date of admission: 08/18/16 19:56 Primary care physician: Nickolas Zamora DO Consults: 08/19/16 12:14 Consult to Cardiology [CONS] Routine Comment: Consulting Provider: Cardiology Wister Reason for Consult: abnl stress. hx cabg and stents x7 Time Notified: 12:15 Call Completed: Yes Discharging clinician: Hermelinda Sommer Anticipated date of discharge: 08/20/16 - Patient Status Disposition: Home, Self-Care Condition: Good Functional capacity at discharge: independent ambulation Overall status at discharge: patient is back to baseline - Discharge Instructions Follow Up With: Nickolas Zamora DO [Primary Care Provider] - 08/26/16 3:00 pm Additional Instructions: Follow-up appointments: Follow-up with primary care provider as scheduled If there is not an appointment listed below, please call your physician and schedule a follow-up appointment. If you have congestive heart failure and your symptoms return, make an appointment with your physician. Medication List: Carry an up to date list of medications you are taking at all time. We have given you an updated medication list including any new medications that you have been prescribed. Please provide that list to your primary provider Symptoms: If your condition changes or you experience any of the following symptoms, notify your physician immediately: Unusual or worsening pain, fever, persistent nausea and vomiting, bleeding, increase in swelling (especially in your legs), sudden weight gain, extreme dizziness, chest pain, increased drainage or redness from a wound or incision. Go to the emergency department if you experience a problem with breathing. Weights: If you have a history of swelling or shortness of breath, weigh yourself daily and notify your physician if you have a weight gain of two or more pounds in one day or 5 or more pounds in a week. If you experience any of the warning signs for stroke: Sudden numbness or weakness of the face, arm or leg; especially on one side of the body, sudden confusion, trouble speaking or understanding, sudden trouble seeing in one or both eyes, sudden trouble walking, dizziness, loss of balance or coordination, sudden sever headache with no cause; Call 911 or go to the emergency room. Stroke is a medical emergency. Some risk factors for stroke: Age, cigarette smoking, diabetes, excessive alcohol consumption, family history , high blood pressure, overweight, physical inactivity, prior stroke, heart attack, diagnosis of carotid artery stenosis or other artery disease. If you smoke, STOP: Smoking or tobacco use significantly increases your risk of heart and lung disease. Your chance of disease greatly increases if you continue to smoke. For more information, call the [place] tobacco quit line for smoking cessation QUIT-NOW ( ) - Diet and Activity Activity: increase activity as tolerated Diet: low fat, low cholesterol Hospital course: Ms. Bartlett is a 51 year old female with past medical history of CAD status post CABG and stents 7, hypertension, hyperlipidemia, systolic heart failure with ejection fraction of 35-40%, ischemic cardiomyopathy. Patient presented to the emergency department chief complaint left-sided chest pressure that radiated to the left side of her neck and occurred while she was sitting in the car and lasted for approximately 1 hour. Patient also endorsed her chronic fibromyalgia pain and states that she gets confused with the types of pains that she is having. Patient also endorsed increased stress lately. Patient also endorsed palpitations on the day of presentation as well as shortness of breath. Workup in the emergency department unremarkable. Chest x-ray negative. Patient was admitted to the hospitalist service for further evaluation and management. No acute ECG changes. Troponins negative 3. Patient had an abnormal stress test so cardiology was brought on board. Cardiology recommended medical management with no changes to her medications indicated. Of note, patient was hypotensive throughout this admission. She did remain alert and oriented 3 throughout this admission. 3 of her antihypertensive medications were held and she remained hypotensive though her blood pressure did improve at time of discharge. Her lisinopril, furosemide, and carvedilol were all held. Her Ranexa and Imdur were continued. We will hold these upon discharge and have her check her blood pressure daily at home and follow up outpatient. During this admission, patient's main complaint was her chronic fibromyalgia pain as well as chest pressure. Patient routinely asked for IV pain medication while admitted. She was euvolemic on examination. She did receive gentle IV fluids for her hypotension. In review of her chart , patient was seen last year for the same symptoms and was also hypotensive at that time. While admitted, patient complained of nausea. She was started on a daily PPI and given a prescription for ondansetron. She was able to tolerate a regular diet while admitted. She was ambulatory without limitations, dizziness , or presyncopal episodes. Patient was noted on day of discharge stating that she was going to "take my Oxy, lay here, and de-stress." No narcotics were prescribed at discharge. She was discharged home in stable condition with close outpatient follow-up recommended. She was instructed to check her blood pressure daily, and keep a log for her primary care provider as 3 of her home medications were held at discharge. ITS Impressions Chest X-Ray 08/18/16 16:40 IMPRESSION: No evidence of acute cardiopulmonary disease. D/ / Adam Westbrook MD / Adam Westbrook MD Interpreting Provider: Adam Westbrook MD Reg[facility] nuclear stress test impression: Patient reported mild-moderate chest pain prior to the study. Chest pain did not change during the stress test. Gated LVEF equals 41%. Medium-large, moderate-severe intensity, predominantly fixed perfusion defect involving the mid-apical anterior wall, mid anterioseptum, apical septum, and apex. Findings consistent with myocardial infarction with mild delfina-infarct ischemia. Small-medium, moderate intensity, reversible perfusion defect involving the basal-mid inferior lateral wall. Findings consistent with reversible myocardial ischemia. - Time Spent with Patient Total time spent providing and/or coordinating discharge services: - Constitutional Vitals: Temp Pulse Resp BP Pulse Ox 98.2 F 74 16 89/60 94 08/20/16 11:07 08/20/16 11:07 08/20/16 13:08 08/20/16 11:07 08/20/16 13:08 General appearance: Present: A&O X 3, no acute distress, answers questions appropriately - Head Head exam: Present: atraumatic, normocephalic - Eye Eye exam: Present: PERRL, conjuntiva pink, sclera anicteric Pupils: Present: PERRL - Neck Neck exam general surgery: Present: supple, trachea midline. Absent: lymphadenopathy - Respiratory Respiratory exam: Present: CTAB. Absent: accessory muscle use, rales, respiratory distress, rhonchi, wheezes - Cardiovascular Cardiovascular exam: Present: RRR, +S1, +S2. Absent: diastolic murmur, gallop, rubs, systolic murmur - GI/Abdominal GI/Abdominal exam: Present: normal bowel sounds, soft, no peritoneal signs. Absent: distended, tenderness - Extremities Exam Extremities exam: Present: warm, radial pulses palpable and symetrical. Absent : calf tenderness, cyanotic, pedal edema - Neurological Exam Neurological exam: Present: alert, CN II-XII intact, normal gait, oriented X3, no focal deficits, strengths equal and symetr throughout. Absent: pronater drift, facial droop, speech deficit - Skin Skin exam: Present: dry, intact, normal color, pallor (slightly), warm
== END 2016-08-20 17:13 | disposition home or self-care (01) ==
LOC: EMEROO 16:00 → 3BNU 16:00 → SUATTDRO 19:56 → 3BNU 20:30
PROVIDERS: ADMIT Internal Medicine; ATTEND Nurse Practitioner Family

== ENCOUNTER 2017-05-10 01:49 | Observation (INO) ==
[2017-05-10] MEDS ORDERED: Ondansetron 4 MG/2 ML VIAL IVP ONE (01:58)
[2017-05-10] MEDS ORDERED: *HR* FentaNYL (PF) 100 MCG/2 ML VIAL IVP ONE (01:58)
--- NOTE | 2017-05-10 02:02 | Emergency Department Note ---
Disposition Clinical Impression: Chest pain Qualifiers: Chest pain type: unspecified Qualified Code(s): R07.9 - Chest pain, unspecified Disposition: Admitted As Inpatient Condition: Good Time of Disposition: 02:53 Chest Pain HPI - General Chief Complaint: ED Chest Pain Stated Complaint: chest pain Time Seen by Provider: 05/10/17 01:57 Vital Signs Reviewed: Yes Nursing Notes Reviewed: Yes - History of Present Illness Pt complaint: chest pain Onset (ago): hour(s) (4) Duration: constant Onset: during rest Pain Location: left chest Improves with: nitroglycerin Worsens with: exertion Associated symptoms: Reports: nausea, diaphoresis, dyspnea, other (LUE tingling) . Denies: syncope, palpitations, fever, cough Treatments prior to arrival chest pain: aspirin, nitroglycerin, other (EMS) - Related Data Home Medications Medication Instructions Recorded Confirmed Alprazolam [Xanax] 1 mg PO TID PRN 02/17/15 08/18/16 Gabapentin [Neurontin] 600 mg PO TID 02/17/15 08/18/16 Paroxetine [Paxil] 45 mg PO DAILY 02/17/15 08/18/16 Ranolazine [Ranexa] 1,000 mg PO BID 02/17/15 08/18/16 Albuterol Sulfate [Ventolin Hfa] 2 puff IH Q4H PRN 10/18/15 08/18/16 Pravastatin Sodium [Pravachol] 40 mg PO HS 07/24/16 08/18/16 BuPROPion XL (24 HR) [Wellbutrin 150 mg PO DAILY 08/18/16 08/18/16 Xl] Nitroglycerin [Nitrostat] 0.4 mg SL Q5M PRN 08/18/16 08/18/16 hydrOXYzine pamoate [HydrOXYzine 25 mg PO BID PRN 08/18/16 08/18/16 Pamoate] Previous Rx's Medication Instructions Recorded Aspirin Enteric Coated [Aspirin EC] 81 mg PO DAILY #30 tablet. 07/15/15 Prasugrel [Effient] 10 mg PO DAILY #30 tablet 07/15/15 Isosorbide MONOnitrate (24 HR) 60 mg PO DAILY #0 10/19/15 [Imdur] Omeprazole [PriLOSEC] 20 mg PO DAILY@0630 #30 capsule. 08/20/16 Ondansetron HCl 4 mg PO Q8H PRN #12 tablet 08/20/16 Allergies Allergy/AdvReac Type Severity Reaction Status Date / Time azithromycin Allergy Anaphylaxis Verified 07/24/16 19:59 latex Allergy Anaphylaxis Verified 07/24/16 19:59 Penicillins [PCN] Allergy Anaphylaxis Verified 07/24/16 19:59 acetaminophen [From Percocet] AdvReac See Verified 05/10/17 03:41 Comments adhesive tape AdvReac Rash Verified 07/24/16 19:59 Oxycodone [From Percocet] AdvReac See Verified 05/10/17 03:41 Comments All systems ED: reviewed and negative except as stated. Review of Systems: As Per HPI Constitutional: Denies: fever, chills Eyes: Denies: vision change ENT ED: Denies: throat pain Cardiovascular: Reports: as per HPI. Denies: palpitations, dyspnea on exertion Respiratory: Denies: dyspnea Gastrointestinal: Reports: as per HPI. Denies: abdominal pain Genitourinary: Denies: dysuria Musculoskeletal: Denies: back pain Integumentary: Denies: rash Neurological: Denies: headache, weakness, numbness Endocrine: Denies: fatigue Hematological/Lymphatic: Denies: easy bleeding Allergic/Immunologic: Denies: facial swelling Chest Pain PMH - Past Medical History Medical history: Reports: asthma, cardiomyopathy, CHF (Systolic CHF with ejection fraction of 35-40%), coronary artery disease (History of CABG and 7 stents), fibromyalgia, hyperlipidemia, hypertension, kidney stones, migraine, myocardial infarction, TIA, other (Fibromyalgia, nephrolithiasis, migraines, TIAs, bipolar disorder, PTSD, anxiety, depression, neuropathy, asthma) Surgical history: Reports: angioplasty/stent, , cholecystectomy, coronary bypass (CABG) Psychiatric history: Reports: anxiety, bipolar, depression, panic disorder, PTSD - Social History Smoking Status: Never smoker Alcohol use: Reports: rarely Drug use: Reports: none Physical Exam - General Limitations: no limitations General appearance: alert, in no apparent distress - Head Head exam: normocephalic - Eye Eye exam: Present: EOMI. Absent: conjunctival injection - ENT ENT exam: mucous membranes moist - Neck Neck exam: Present: full ROM - Chest Chest inspection: Present: normal inspection, symmetric chest wall rise - Respiratory Respiratory exam: Present: normal lung sounds bilaterally. Absent: respiratory distress, wheezes, stridor, accessory muscle use - Cardiovascular Cardiovascular exam: Present: regular rate, normal rhythm - Abdominal Exam Abdominal exam: Present: soft, Non-Tender - Extremities Exam Extremities exam: Present: full ROM - Back Exam Back exam: Present: full ROM - Neurological Exam Neurological exam: Present: alert - Psychiatric Psychiatric exam: Present: normal affect, normal mood - Skin Skin exam: Present: warm, dry, intact, normal color. Absent: rash, cyanosis, diaphoresis Course Course Narrative: 51-year-old female with known history of CAD, PTCA, NE, CABG, CHF presents with chest pain. She states over the past few days, she has been feeling more fatigued shortness of breath, nauseous, and describes diaphoresis. She has had some intermittent chest pain that worsened acutely tonight while she was lying down approximately 3 hours prior to her arrival. She does describe her symptoms worsen when she walks, with numbness in fingers in her left upper extremity. She denies any recent illness, cough, fever, radiation into her back or neck, abdominal pain or bladder symptoms. A she mentions a past history of CABG 10 years ago, multiple stents, most recent dose was last year. She also mentions she seen by Dr. Cevallos, had an echo last month, and tells me that she has plans to get a stress test done a few months. EKG today shows sinus rhythm, and peers comparable to previous EKG from August 2016. Patient did receive aspirin by EMS and had taken at home as well. She has had a total of 3 nitroglycerin's that did help her symptoms. She is requesting additional analgesics. - Reevaluation(s) Reevaluation #1: This point patient's workup is unremarkable with a normal troponin. No elevation of white blood cell count. Her pain did improve after IV analgesics. Due to patient's risk factors and past medical history, and current chest pain , will discuss with hospitalist for admission. I have discussed with Dr. Villalobos who also had face time with patient and agreed with decision to place for cardiac rule out. Time: 02:47 Reevaluation #2: Pt discussed with and accepted by hospitalist Dr. Conley. Time: 03:15 Vital Signs Temperature 98.2 F 05/10/17 01:56 Pulse Rate 66 05/10/17 01:56 Respiratory Rate 16 05/10/17 01:56 Blood Pressure 139/81 05/10/17 01:56 O2 Sat by Pulse Oximetry 100 05/10/17 01:56 Temperature 98.2 F 05/10/17 01:56 Pulse Rate 64 05/10/17 02:41 Respiratory Rate 16 05/10/17 02:41 Blood Pressure 135/95 05/10/17 02:41 O2 Sat by Pulse Oximetry 100 05/10/17 02:41 Oxygen Delivery Oxygen Delivery Room Air Chest Pain - Lab Data Result diagrams: 05/10/17 02:04 05/10/17 02:04 Lab Results 05/10/17 05/10/17 05/10/17 Range/Units 02:03 02:04 02:04 WBC 7.1 (4.3-11.1) K/mcL RBC 4.36 (3.82-4.97) M/mcL Hgb 12.8 (11.5-15.4) g/dL Hct 37.6 (35.3-44.9) % MCV 86.2 (83.0-100.0) fL MCH 29.4 (28.0-33.3) pg MCHC 34.0 (31.6-35.5) g/dL RDW 12.8 (11.5-14.5) % Plt Count 172 (140-400) K/mcL MPV 11.3 (9.4-12.4) fL Immature Gran % 0.3 (0-4) % Seg Neutrophils % 58.2 % Lymphocytes % 30.7 % Monocytes % 6.9 % Eosinophils % 3.5 % Basophils % 0.4 % Neutrophils # 4.1 (1.6-8.9) K/mcL Lymphocytes # 2.2 (0.6-4.6) K/mcL Monocytes # 0.5 (0.0-1.3) K/mcL Eosinophils # 0.3 (0.0-0.6) K/mcL Basophils # 0.0 (0.0-0.2) K/mcL PT 11.7 (9.4-12.1) Seconds INR 1.1 APTT 28.3 (26.0-36.0) Seconds Sodium (136-145) mEq/L Potassium (3.5-5.1) mEq/L Chloride (98-107) mEq/L Carbon Dioxide (23-29) mEq/L BUN (6-20) mg/dL Creatinine (0.60-1.20) mg/dL Est GFR ( Amer) (> 60) Est GFR (Non-Af Amer) (> 60) BUN/Creatinine Ratio (6-26) Glucose (70-105) mg/dL Calculated Osmolality (280-300) Calcium (8.6-10.3) mg/dL Troponin I (< 0.04) ng/mL B-Natriuretic Peptide 60 (Less than 100) pg/mL 05/10/17 Range/Units 02:04 WBC (4.3-11.1) K/mcL RBC (3.82-4.97) M/mcL Hgb (11.5-15.4) g/dL Hct (35.3-44.9) % MCV (83.0-100.0) fL MCH (28.0-33.3) pg MCHC (31.6-35.5) g/dL RDW (11.5-14.5) % Plt Count (140-400) K/mcL MPV (9.4-12.4) fL Immature Gran % (0-4) % Seg Neutrophils % % Lymphocytes % % Monocytes % % Eosinophils % % Basophils % % Neutrophils # (1.6-8.9) K/mcL Lymphocytes # (0.6-4.6) K/mcL Monocytes # (0.0-1.3) K/mcL Eosinophils # (0.0-0.6) K/mcL Basophils # (0.0-0.2) K/mcL PT (9.4-12.1) Seconds INR APTT (26.0-36.0) Seconds Sodium 139 (136-145) mEq/L Potassium 3.5 (3.5-5.1) mEq/L Chloride 106 (98-107) mEq/L Carbon Dioxide 25 (23-29) mEq/L BUN 10 (6-20) mg/dL Creatinine 0.70 (0.60-1.20) mg/dL Est GFR ( Amer) > 60 (> 60) Est GFR (Non-Af Amer) > 60 (> 60) BUN/Creatinine Ratio 14 (6-26) Glucose 87 (70-105) mg/dL Calculated Osmolality 286 (280-300) Calcium 8.9 (8.6-10.3) mg/dL Troponin I < 0.03 (< 0.04) ng/mL B-Natriuretic Peptide (Less than 100) pg/mL - EKG Data EKG attestation: Yes I reviewed and interpreted this EKG. EKG shows normal: sinus rhythm Rate: normal Rhythm: NSR When compared to previous EKG there are: no significant changes Interpretation: no acute changes Heart Score - Score History: Moderately Suspicious EKG: Non Specific repolarisation Disturbance Age: 45-65 Risk Factors: Equal/Greater than 3 risk factor or history of atherosclerotic disease Troponin: Less than normal limit HEART Score Total: 5 Attestation Statement - Attestation Attestation: I, Thanh Villalobos MD, personally evaluated this patient and discussed their management with the midlevel provicer, PAC/[employer]. I reviewed the midlevel provider 's note and agree with the documented findings, medical decision making, and plan of care. 51-year-old female with known coronary artery disease presents to the emergency department by ambulance with a complaint of left sided chest pain for the past 2 days. She describes it as a pressure and dull ache in the left upper chest. Pain radiates up into the left side of her neck and down the left arm. She complains of nausea and some vomiting with the pain. Shortness of breath and some intermittent diaphoresis. Patient has a history of CABG in the past and also coronary artery stents. No increased cough or fever. On examination patient is a well-developed well-nourished female in no acute distress. She is alert and oriented 3. There is no cyanosis or diaphoresis. Chest is nontender to palpation. Breath sounds are clear and equal bilaterally. Heart regular rate and rhythm. Abdomen soft and nontender with normal bowel sounds. Labs reviewed and unremarkable. Troponin normal. Chest x-ray negative. EKG shows a normal sinus rhythm with no acute ST segment elevation or depression. No significant change from prior EKG. The hospitalist, Dr. Conley, was consulted and accepted admission of the patient.
[2017-05-10 02:15] LABS: Basophils % 0.4 %; Eosinophils # 0.3 K/mcL (0.0-0.6); Eosinophils % 3.5 %; Hematocrit 37.6 % (35.3-44.9); Hemoglobin 12.8 g/dL (11.5-15.4); Immature Granulocytes % 0.3 % (0-4); Lymphocytes # 2.2 K/mcL (0.6-4.6); Lymphocytes % 30.7 %; Mean Corpuscular Hemoglobin 29.4 pg (28.0-33.3); Mean Corpuscular Volume 86.2 fL (83.0-100.0); Mean Platelet Volume 11.3 fL (9.4-12.4); Monocytes # 0.5 K/mcL (0.0-1.3); Monocytes % 6.9 %; Neutrophils # 4.1 K/mcL (1.6-8.9); Platelet Count 172 K/mcL (140-400); Red Blood Count 4.36 M/mcL (3.82-4.97); Red Cell Distribution Width 12.8 % (11.5-14.5); Segmented Neutrophils % 58.2 %
[2017-05-10 02:24] LABS: INR 1.1; Prothrombin Time 11.7 Seconds (9.4-12.1)
[2017-05-10 02:26] LABS: Activated Partial Thrombo Time 28.3 Seconds (26.0-36.0)
[2017-05-10 02:39] LABS: BUN/Creatinine Ratio 14 (6-26); Blood Urea Nitrogen 10 mg/dL (6-20); Calcium 8.9 mg/dL (8.6-10.3); Carbon Dioxide 25 mEq/L (23-29); Chloride 106 mEq/L (98-107); Glucose 87 mg/dL (70-105); Osmolality,Calculated 286 (280-300); Potassium 3.5 mEq/L (3.5-5.1); Sodium 139 mEq/L (136-145); eGFR For African Americans > 60 (> 60); eGFR For Non-African Americans > 60 (> 60)
[2017-05-10 02:40] LABS: Troponin I < 0.03 ng/mL (< 0.04)
[2017-05-10] MEDS ORDERED: *HR* HYDROcodone/Acet 5/325 mg TABLET PO ONE (02:48)
[2017-05-10] MEDS ORDERED: Naloxone 0.4 MG/ML INJ IVP PRN (05:27)
[2017-05-10] MEDS ORDERED: Nitroglycerin 0.4 MG TAB.SUBL SL PRN (05:29)
[2017-05-10] MEDS ORDERED: hydrOXYzine pamoate 25 MG CAPSULE PO PRN (05:29)
--- NOTE | 2017-05-10 05:34 | Internal Med History&Physical ---
Date of Encounter: 05/10/17 Time of Encounter: 05:34 Assessment and Plan (1) Chest pain Current visit: No Status: Acute 51/female Admitted with chest pain. EKG: Nonspecific ST-T changes Chest x-ray: Mild cardiomegaly Echocardiogram: 04/2017: LV EF 40-45%, global LV systolic dysfunction Nuclear stress test: 08/2016: Gaited EF 40%, multiple reversible ischemic defect noted. Cardiology aware of the same Plan: Admit as observation. Resume home medication. If 3 troponins negative then consult cardiology for possible evaluation regarding stresses. I examined this patient in the [id number] Plan of care discussed with the patient Qualifiers: Chest pain type: chest pain on breathing Qualified Code(s): R07.1 - Chest pain on breathing (2) CAD (coronary artery disease) Current visit: No Status: Chronic Patient is known to have a coronary artery disease. Patient has a coronary artery bypass graft in the past. Patient also has multiple stents placed Qualifiers: Coronary Disease-Associated Artery/Lesion type: bypass graft [place] vs. transplanted heart: [place] heart Associated angina: with stable angina Qualified Code(s): I25.708 - Atherosclerosis of coronary artery bypass graft(s) , unspecified, with other forms of angina pectoris (3) HTN (hypertension) Current visit: No Status: Chronic Patient's blood pressure is very well controlled. Her blood pressure is within acceptable range. We will resume home medication. Qualifiers: Hypertension type: essential hypertension Qualified Code(s): I10 - Essential (primary) hypertension (4) Fibromyalgia Current visit: No Status: Chronic Patient is known to have a fibromyalgia. Her fibromyalgia is not well controlled. This chest pain is likely from the fibromyalgia and unlikely from the coronary artery disease. But we will do serial troponins. (5) DVT prophylaxis Current visit: No Status: Acute SCD Medical decision making: This patient has a moderate to severe risk of worsening in spite of being on. Medications his underlying chronic comorbid conditions Internal Medicine - H&P: HPI Chief complaint: chest pain Admitted From: Emergency Dept Plans for Post Hospital Care: Home History of present illness: Ms. Bartlett is a 51 year old female known to have hypertension, anxiety, depression, bipolar mood disorder, coronary artery disease, previous coronary artery bypass graft, systolic congestive heart failure, more than 6 stents. Patient has ongoing chest pain for past 3 months. But in last 24 hours patient was really concerned because her pain was getting worse. Patient claims that this pain is the same as when she had a first episode of myocardial infarction. In past 3 hours patient pain was really was not and that was the triggering point for her to come to emergency room. Patient was evaluated in the emergency room. Basic labs were drawn. First set of troponin were negative. Hemoglobin and hematocrit, renal function was within acceptable range. Patient was hospitalized because of chest pain to rule out ACS. Past Med Surg Social Fam HX - Past Medical History Medical history: asthma, cardiomyopathy, CHF, coronary artery disease, fibromyalgia, hyperlipidemia, hypertension, kidney stones, migraine, myocardial infarction, TIA, other Psychiatric history: anxiety, bipolar, depression, panic disorder, PTSD - Past Surgical History Surgical History: angioplasty/stent, , cholecystectomy, coronary bypass (CABG) - Social History Smoking Status: Never smoker Smokeless Tobacco Status: No Alcohol use: rarely Drug use: none - Family History Mother Living Status: Hx Family Cardiac Disorders: Yes ([place]) Hx Family Respiratory Disorders: No Hx Family Cancer: No Hx Family GI Disorders: No Hx Family Endocrine Disorder: Yes (Diabetic) Hx Family Neuromuscular Disorders: Yes Hx Family Neurologic Disorders: Yes Hx Family HEENT Disorders: No Hx Family Autoimmune Disorders: No Father Living Status: Hx Family Cardiac Disorders: Yes Hx Family Neurologic Disorders: Yes (dementia) Internal Medicine - H&P: Meds Alprazolam [Xanax] 1 mg PO TID PRN 02/17/15 [History] Gabapentin [Neurontin] 600 mg PO TID 02/17/15 [History] Paroxetine [Paxil] 45 mg PO DAILY 02/17/15 [History] Ranolazine [Ranexa] 1,000 mg PO BID 02/17/15 [History] Aspirin Enteric Coated [Aspirin EC] 81 mg PO DAILY #30 tablet. 07/15/15 [Rx] Prasugrel [Effient] 10 mg PO DAILY #30 tablet 07/15/15 [Rx] Albuterol Sulfate [Ventolin Hfa] 2 puff IH Q4H PRN 10/18/15 [History] Isosorbide MONOnitrate (24 HR) [Imdur] 60 mg PO DAILY #0 10/19/15 [Rx] Pravastatin Sodium [Pravachol] 40 mg PO HS 07/24/16 [History] BuPROPion XL (24 HR) [Wellbutrin Xl] 150 mg PO DAILY 08/18/16 [History] Nitroglycerin [Nitrostat] 0.4 mg SL Q5M PRN 08/18/16 [History] hydrOXYzine pamoate [HydrOXYzine Pamoate] 25 mg PO BID PRN 08/18/16 [History] Omeprazole [PriLOSEC] 20 mg PO DAILY@0630 #30 capsule. 08/20/16 [Rx] Ondansetron HCl 4 mg PO Q8H PRN #12 tablet 08/20/16 [Rx] 3 Allergy/AdvReac Type Severity Reaction Status Date / Time azithromycin Allergy Anaphylaxis Verified 07/24/16 19:59 latex Allergy Anaphylaxis Verified 07/24/16 19:59 Penicillins [PCN] Allergy Anaphylaxis Verified 07/24/16 19:59 acetaminophen [From Percocet] AdvReac See Verified 05/10/17 03:41 Comments adhesive tape AdvReac Rash Verified 07/24/16 19:59 Oxycodone [From Percocet] AdvReac See Verified 05/10/17 03:41 Comments All Systems PM: A 10-system review of systems was performed and is negative for pertinent findings except as documented above in the HPI. - Constitutional Constitutional: no chills, no fever(s), no night sweats - EENT Eyes: no change in vision, no discharge, no pain, no photophobia Ears: no ear discharge, no ear pain, no tinnitus Nose, mouth and throat: no dysphagia, no nasal discharge, no neck pain, no sore throat - Cardiovascular Cardiovascular ROS IM: chest pain, diaphoresis, dyspnea, no lightheadedness, no palpitations, no syncope - Respiratory Respiratory: no cough, no dyspnea, no wheezing, no excessive phlegm production - Gastrointestinal Gastrointestinal: no abdominal pain, no diarrhea, no hematemesis, no hematochezia, no melena, no nausea, no vomiting - Genitourinary Genitourinary: no change in urinary stream, no dysuria, no flank pain, no hematuria - Musculoskeletal Musculoskeletal ROS IM: no numbness, no tingling - Integumentary Integumentary IM: no rash, no unusual bruising - Neurological Neurological ROS: no confusion, no convulsions, no focal weakness, no numbness, no tingling, no tremor(s) - Hematologic/Lymphatic Hematologic/Lymphatic: no easy bruising - Constitutional Vitals: Temp Pulse Resp BP Pulse Ox 98.0 F 62 16 120/69 99 05/10/17 03:34 05/10/17 03:34 05/10/17 03:41 05/10/17 03:41 05/10/17 03:34 General appearance: Present: A&O X 3, pleasant, no acute distress, answers questions appropriately - Head Head exam: Present: atraumatic, normocephalic - Eye Eye exam: Present: PERRL, conjuntiva pink, sclera anicteric Pupils: Present: PERRL - Neck Neck exam general surgery: Present: supple, trachea midline. Absent: lymphadenopathy - Respiratory Respiratory exam: Present: CTAB. Absent: accessory muscle use, rales, rhonchi, wheezes - Cardiovascular Cardiovascular exam: Present: RRR, +S1, +S2. Absent: diastolic murmur, gallop, rubs, systolic murmur - GI/Abdominal GI/Abdominal exam: Present: normal bowel sounds, soft, no peritoneal signs. Absent: distended, tenderness - Extremities Exam Extremities exam: Present: warm, radial pulses palpable and symmetrical. Absent : calf tenderness, cyanotic, pedal edema - Neurological Exam Neurological exam: Present: CN II-XII intact, oriented X3, no focal deficits. Absent: pronater drift, facial droop, speech deficit - Skin Skin exam: Present: dry, intact Internal Med - H&P Results - Labs CBC & Chem 7: 05/10/17 02:04 05/10/17 02:04
[2017-05-10] MEDS: *HR* OxyCODONE Immed Rel 5 MG TABLET PO PRN ×3 (06:01→21:50)
[2017-05-10] MEDS: Ondansetron 4 MG/2 ML VIAL IVP PRN ×3 (06:40→21:50)
[2017-05-10 08:13] LABS: INR 1.1; Prothrombin Time 11.4 Seconds (9.4-12.1)
[2017-05-10 08:15] LABS: Activated Partial Thrombo Time 28.7 Seconds (26.0-36.0)
[2017-05-10 08:23] LABS: Basophils % 0.4 %; Eosinophils # 0.2 K/mcL (0.0-0.6); Eosinophils % 3.4 %; Hemoglobin 12.7 g/dL (11.5-15.4); Immature Granulocytes % 0.3 % (0-4); Lymphocytes # 2.3 K/mcL (0.6-4.6); Mean Corpuscular HGB Conc 33.4 g/dL (31.6-35.5); Mean Corpuscular Hemoglobin 29.3 pg (28.0-33.3); Mean Corpuscular Volume 87.6 fL (83.0-100.0); Monocytes # 0.4 K/mcL (0.0-1.3); Monocytes % 6.3 %; Neutrophils # 3.9 K/mcL (1.6-8.9); Platelet Count 169 K/mcL (140-400); Red Blood Count 4.34 M/mcL (3.82-4.97); Segmented Neutrophils % 56.6 %
[2017-05-10 08:28] LABS: Alanine Aminotransferase 10 Units/L (7-52); Albumin 3.9 g/dL (3.5-5.7); Albumin/Globulin Ratio 1.6 (1.1-2.2); Alkaline Phosphatase 84 Units/L (34-104); Aspartate Amino Transferase 11 Units/L (13-39); BUN/Creatinine Ratio 15 (6-26); Bilirubin,Total 0.3 mg/dL (0.3-1.0); Blood Urea Nitrogen 10 mg/dL (6-20); Carbon Dioxide 26 mEq/L (23-29); Chloride 105 mEq/L (98-107); Chol/HDL Ratio 3.3 (0-4.9); Cholesterol 179 mg/dL (< 200); Globulin 2.4 g/dL (2.4-3.5); Glucose 87 mg/dL (70-105); HDL Cholesterol 55 mg/dL (40-59); LDL Cholesterol,Calculated 92 mg/dL (0-99); Magnesium 2.1 mg/dL (1.6-2.6); Osmolality,Calculated 284 (280-300); Phosphorous 4.2 mg/dL (2.7-4.5); Potassium 3.7 mEq/L (3.5-5.1); Sodium 138 mEq/L (136-145); Total Protein 6.3 g/dL (6.4-8.9); Triglycerides 161 mg/dL (< 150); eGFR For African Americans > 60 (> 60); eGFR For Non-African Americans > 60 (> 60)
[2017-05-10] MEDS ORDERED: Isosorbide MONOnitrate (24 HR) 60 MG TAB.ER.24H PO SCH (09:00)
[2017-05-10] MEDS: BuPROPion XL (24 HR) 150 MG TABLET PO SCH (10:00)
[2017-05-10] MEDS: Ranolazine 500 MG TAB.ER.12H PO SCH ×2 (10:00→21:50)
[2017-05-10] MEDS: Gabapentin 300 MG CAPSULE PO SCH ×3 (10:00→21:50)
[2017-05-10] MEDS: Aspirin Enteric Coated 81 MG Tablet PO SCH (10:00)
[2017-05-10] MEDS: Acetaminophen 325 MG TABLET PO PRN (10:01)
[2017-05-10] MEDS: ALPRAZolam 1 MG TABLET PO PRN ×2 (10:01→22:21)
[2017-05-10] MEDS ORDERED: Isosorbide MONOnitrate (24 HR) 30 MG TAB.ER.24H PO ONE ×2 (15:40→15:45)
--- NOTE | 2017-05-10 16:22 | Event Note ---
Date of Encounter: 05/10/17 Time of Encounter: 10:00 Patient was seen earlier by mine technician- Has extensive cardiac hx with several stents and CABG in past presently patient complain of pain all over. Her troponins have been negative. I did discuss this case with cardiology nurse practitioner Daisy who is familiar with this patient- Advised to increase Isosorbide to 90 mg to see if that will help with her symptoms. Continue to trend troponins and if limited echo not completed in the past month to complete the echo, consult cardiology in a.m. if symptoms persist.- Upon review of records it appears patient did have a limited echo on 04/2017 EF 40-45% with global left ventricle systolic dysfunction she also underwent a nuclear stress test 08/2016- gaited EF 40% multiple reversible ischemic defect noted. Will increase Iosorbide- she already received 60mg-will add 30 mg and increase to 90mg in am - confirmed with Mitesh in pharmacy- Consult cardiology as needed, continue cardiac monitoring
[2017-05-11] MEDS: ALPRAZolam 1 MG TABLET PO PRN ×2 (03:26→21:31)
[2017-05-11] MEDS: Ondansetron 4 MG/2 ML VIAL IVP PRN ×3 (03:31→18:54)
[2017-05-11] MEDS ORDERED: Ipratropium/Albuterol Neb 3 ML IH PRN (05:57)
[2017-05-11] MEDS: *HR* OxyCODONE Immed Rel 5 MG TABLET PO PRN ×2 (06:05→18:53)
[2017-05-11 08:20] LABS: Basophils % 0.5 %; Eosinophils # 0.3 K/mcL (0.0-0.6); Eosinophils % 3.1 %; Immature Granulocytes % 0.2 % (0-4); Lymphocytes # 2.2 K/mcL (0.6-4.6); Lymphocytes % 26.2 %; Mean Corpuscular HGB Conc 32.5 g/dL (31.6-35.5); Mean Corpuscular Hemoglobin 28.8 pg (28.0-33.3); Mean Corpuscular Volume 88.5 fL (83.0-100.0); Mean Platelet Volume 11.6 fL (9.4-12.4); Monocytes # 0.5 K/mcL (0.0-1.3); Neutrophils # 5.4 K/mcL (1.6-8.9); Platelet Count 192 K/mcL (140-400); Red Blood Count 4.52 M/mcL (3.82-4.97)
[2017-05-11 08:24] LABS: BUN/Creatinine Ratio 14 (6-26); Blood Urea Nitrogen 12 mg/dL (6-20); Carbon Dioxide 27 mEq/L (23-29); Chloride 101 mEq/L (98-107); Potassium 4.6 mEq/L (3.5-5.1); Sodium 136 mEq/L (136-145)
[2017-05-11 08:25] LABS: Calcium 9.2 mg/dL (8.6-10.3); Glucose 92 mg/dL (70-105); Osmolality,Calculated 281 (280-300); eGFR For African Americans > 60 (> 60); eGFR For Non-African Americans > 60 (> 60)
[2017-05-11] MEDS: Isosorbide MONOnitrate (24 HR) 30 MG TAB.ER.24H PO SCH (10:16)
[2017-05-11] MEDS: BuPROPion XL (24 HR) 150 MG TABLET PO SCH (10:16)
[2017-05-11] MEDS: Gabapentin 300 MG CAPSULE PO SCH ×3 (10:16→21:31)
[2017-05-11] MEDS: Ranolazine 500 MG TAB.ER.12H PO SCH ×2 (10:16→21:31)
[2017-05-11] MEDS: Aspirin Enteric Coated 81 MG Tablet PO SCH (10:17)
--- NOTE | 2017-05-11 15:19 | Internal Med Progress Note ---
Date of Encounter: 05/11/17 Time of Encounter: 15:25 - Assessment and plan (1) Chest pain Current Visit: Yes Status: Acute Assessment and plan: presented with chest pain for the last 3 months. Has known CAD as noted below. Isosorbide increased on admission with no improvement in chest pain. Serial troponin is negative. EKG with nonspecific ST changes. Cardiology consulted Qualifiers: Chest pain type: unspecified Qualified Code(s): R07.9 - Chest pain, unspecified (2) CAD in [place] artery Current Visit: No Status: Acute Assessment and plan: per hx. 07/2015 [facility] with successful PTCA/Drug-Eluting Stent placement in the body of the SVG - RPDA graft (within a previous stent). 08/2016 stress test with fixed defect consistent with previous MIs. Now with chest pain as noted above. Home nitrate increased with no change in chest pain. ASA, effient, nitrate, ASA , statin. (3) HTN (hypertension) Current Visit: No Status: Chronic Assessment and plan: per hx. BP controlled. Cont home BP medications. Monitor BP and titrate PRN Qualifiers: Hypertension type: essential hypertension Qualified Code(s): I10 - Essential (primary) hypertension (4) Fibromyalgia Current Visit: No Status: Chronic Assessment and plan: Per history. Continue home gabapentin. (5) DVT prophylaxis Current Visit: No Status: Acute Assessment and plan: heparin - Subjective Interval history: Seen and examined at bedside. Patient is new to me. Information obtained from chart review and patient report. Still with complaint of chest pressure, located to left chest and radiates to left arm. Rate 6 out of 10. Nothing makes better or worse. Not reproducible. No SOB - Constitutional Vitals: Temp Pulse Resp BP Pulse Ox 97.7 F 94 15 110/73 96 05/11/17 10:48 05/11/17 10:48 05/11/17 10:48 05/11/17 10:48 05/11/17 10:48 General appearance: Present: A&O X 3, pleasant, no acute distress, answers questions appropriately - Head Head exam: Present: atraumatic, normocephalic - Eye Eye exam: Present: PERRL, conjuntiva pink, sclera anicteric Pupils: Present: PERRL - Neck Neck exam general surgery: Present: supple, trachea midline. Absent: lymphadenopathy - Respiratory Respiratory exam: Present: CTAB. Absent: accessory muscle use, rales, rhonchi, wheezes - Cardiovascular Cardiovascular exam: Present: RRR, +S1, +S2. Absent: diastolic murmur, gallop, rubs, systolic murmur - GI/Abdominal GI/Abdominal exam: Present: normal bowel sounds, soft, no peritoneal signs. Absent: distended, tenderness - Extremities Exam Extremities exam: Present: warm, radial pulses palpable and symmetrical. Absent : calf tenderness, cyanotic, pedal edema - Neurological Exam Neurological exam: Present: CN II-XII intact, oriented X3, no focal deficits. Absent: pronater drift, facial droop, speech deficit - Skin Skin exam: Present: dry, intact Internal Medicine: Result - Labs CBC & Chem 7: 05/11/17 07:40 05/11/17 07:40 Labs: Short CBC 05/11/17 Range/Units 07:40 WBC 8.4 (4.3-11.1) K/mcL Hgb 13.0 (11.5-15.4) g/dL Hct 40.0 (35.3-44.9) % Plt Count 192 (140-400) K/mcL Neutrophils # 5.4 (1.6-8.9) K/mcL BMP 05/11/17 07:40 Sodium 136 Potassium 4.6 Chloride 101 Carbon Dioxide 27 BUN 12 Creatinine 0.87 Glucose 92 Calcium 9.2 Cardiac Enzymes 05/10/17 Range/Units 19:19 Troponin I < 0.03 (< 0.04) ng/mL - ABG Interpretation ABG results: PT/INR, D-dimer PT 11.4 Seconds (9.4-12.1) 05/10/17 06:25 - VTE Documentation of Mechanical Device: Intermittent pneumatic compression device Consult Discharge Plan - Plan Referrals: Nickolas Zamora DO [Primary Care Provider] -
[2017-05-11] MEDS: *HR* Heparin 5,000 UNIT/ML VIAL SQ SCH (21:31)
[2017-05-12] MEDS: Ondansetron 4 MG/2 ML VIAL IVP PRN ×3 (01:17→21:30)
[2017-05-12] MEDS: *HR* Heparin 5,000 UNIT/ML VIAL SQ SCH ×3 (06:15→21:19)
--- NOTE | 2017-05-12 11:17 | Cardiology Consult Note ---
Date of Encounter: 05/12/17 Time of Encounter: 10:00 Assessment and Plan (1) Chest pain Current Visit: No Status: Acute Patient presents with atypical, reproducible chest pain upon palpation. Troponins have been negative x4 and ECG is without new ischemic findings. Recent echo demonstrates stable LV systolic function. No further cardiac testing is warranted at this time. Chest discomfort does not appear consistent with a cardiac cause. Qualifiers: Chest pain type: intercostal pain Qualified Code(s): R07.82 - Intercostal pain (2) Ischemic cardiomyopathy Current Visit: No Status: Chronic Known ischemic cardiomyopathy with stable EF around 40-45%. Most recent cath was July 2015 s/p PCI. She had a stress test in August 2016 demonstrating abnormalities consistent with known disease not amenable to intervention ( occluded SVG to OM1/OM2 unsuccessful PCI attempt, significant [place] CAD). Recommend continuing medical management; antiplatelet agent (on asa, effient as outpatient - called and confirmed with outpatient pharmacy), BB and statin. Recommend changing statin from pravastatin (on as outpatient) to lipitor - LDL not at goal for known CAD. Discussion w patient/family: The assessment and plan as outlined above was discussed with the patient and/or family members who expressed understanding and agreement. All questions were answered. Will sign off. Thank you for involving us in the care of your patient. Please call with any questions. History of Present Illness Consult date: 05/12/17 Requesting physician: Samaria Gallardo Consult reason: Chest pain Chief complaint: Chest pain History of present illness: Ms. Bartlett is a 51 year old female presenting with chest discomfort. Patient states symptoms developed on . Located over left breast area and described as tender. No radiation. Symptoms not exacerbated with activity. Symptoms dull and persistent. At the bedside, patient is sleeping appearing comfortable. When she awakes, she states she still has pain over the left breast area. Troponins negative x4. ECG appears similar to ECG from 08/2016. Recent echo demonstrates unchanged EF. Past Med Surg Social Fam HX - Past Medical History Medical history: asthma, cardiomyopathy, CHF, coronary artery disease, fibromyalgia, hyperlipidemia, hypertension, kidney stones, migraine, myocardial infarction, TIA, other Psychiatric history: anxiety, bipolar, depression, panic disorder, PTSD - Past Surgical History Surgical History: angioplasty/stent, , cholecystectomy, coronary bypass (CABG) - Social History Smoking Status: Never smoker Smokeless Tobacco Status: No Alcohol use: rarely Drug use: none - Family History Mother Living Status: Hx Family Cardiac Disorders: Yes ([place]) Hx Family Respiratory Disorders: No Hx Family Cancer: No Hx Family GI Disorders: No Hx Family Endocrine Disorder: Yes (Diabetic) Hx Family Neuromuscular Disorders: Yes Hx Family Neurologic Disorders: Yes Hx Family HEENT Disorders: No Hx Family Autoimmune Disorders: No Father Living Status: Hx Family Cardiac Disorders: Yes Hx Family Neurologic Disorders: Yes (dementia) Medications and Allergies Alprazolam [Xanax] 1 mg PO TID PRN 02/17/15 [History] Gabapentin [Neurontin] 600 mg PO TID 02/17/15 [History] Paroxetine [Paxil] 45 mg PO DAILY 02/17/15 [History] Ranolazine [Ranexa] 1,000 mg PO BID 02/17/15 [History] Aspirin Enteric Coated [Aspirin EC] 81 mg PO DAILY #30 tablet. 07/15/15 [Rx] Prasugrel [Effient] 10 mg PO DAILY #30 tablet 07/15/15 [Rx] Albuterol Sulfate [Ventolin Hfa] 2 puff IH Q4H PRN 10/18/15 [History] Isosorbide MONOnitrate (24 HR) [Imdur] 60 mg PO DAILY #0 10/19/15 [Rx] Pravastatin Sodium [Pravachol] 40 mg PO HS 07/24/16 [History] BuPROPion XL (24 HR) [Wellbutrin Xl] 150 mg PO DAILY 08/18/16 [History] Nitroglycerin [Nitrostat] 0.4 mg SL Q5M PRN 08/18/16 [History] hydrOXYzine pamoate [HydrOXYzine Pamoate] 25 mg PO BID PRN 08/18/16 [History] Ondansetron HCl 4 mg PO Q8H PRN #12 tablet 08/20/16 [Rx] Carvedilol [Coreg] 6.25 mg PO BIDWM 05/10/17 [History] Fluticasone/Vilanterol [Breo Ellipta 100-25 Mcg INH] 1 puff IH BID 05/10/17 [ History] Furosemide [Lasix] 40 mg PO DAILY 05/10/17 [History] Ibuprofen [Motrin] 800 mg PO Q8HR 05/10/17 [History] Lisinopril 2.5 mg PO DAILY 05/10/17 [History] Omeprazole [PriLOSEC] 20 mg PO DAILY 05/10/17 [History] Potassium Chloride [Klor-Con Sprinkle] 10 meq PO DAILY 05/10/17 [History] 3 Allergy/AdvReac Type Severity Reaction Status Date / Time azithromycin Allergy Anaphylaxis Verified 07/24/16 19:59 latex Allergy Anaphylaxis Verified 07/24/16 19:59 Penicillins [PCN] Allergy Anaphylaxis Verified 07/24/16 19:59 acetaminophen [From Percocet] AdvReac See Verified 05/10/17 03:41 Comments adhesive tape AdvReac Rash Verified 07/24/16 19:59 Oxycodone [From Percocet] AdvReac See Verified 05/10/17 03:41 Comments All Systems Review: The remainder of the systems were reviewed and are negative - Cardiovascular Cardiovascular: as per HPI Physical Examination Patient with low grade temperatures. Vital Signs, Last 4 Hours Temp Pulse Resp BP Pulse Ox 05/12/17 07:56 99.0 F 79 17 107/71 93 General: Conversant, No Apparent Distress HEENT: Mucus Membranes Moist Neck: No JVD, Normal carotid pulses Cardiac: Reg Rate and Rhythm, Normal S1 and S2, No Murmur Lungs: Normal Breath Sounds, No Wheeze, Rales, Rhonchi Neuro: Alert and responsive, No focal deficits noted Abdomen: Soft, Non-Tender, Other (normal bowel sounds) Musculoskeletal: Other (chest tenderness over left breast area upon palpation) Extremities: No Edema Results 05/11/17 07:40 05/11/17 07:40 Labs reviewed; troponins negative x 4, normal blood count creatinine and BNP, LDL 92, TG 161 - Imaging and Cardiology Chest Xray: report reviewed Echo: report reviewed (04/2017) - EKG Interpretation EKG results cardiology: personally reviewed (Nonspecific ST findings - similar when compared to ECG from 08/2016), other (24h telemetry demonstrates no concerning dysrhythmia and average HR 83 bpm) Consult Discharge Plan - Plan Referrals: Nickolas Zamora, DO [Primary Care Provider] -
[2017-05-12] MEDS: Gabapentin 300 MG CAPSULE PO SCH ×3 (12:28→21:18)
[2017-05-12] MEDS: Aspirin Enteric Coated 81 MG Tablet PO SCH (12:34)
[2017-05-12] MEDS: Ranolazine 500 MG TAB.ER.12H PO SCH ×2 (12:34→21:18)
[2017-05-12] MEDS: Isosorbide MONOnitrate (24 HR) 30 MG TAB.ER.24H PO SCH (12:35)
[2017-05-12] MEDS: BuPROPion XL (24 HR) 150 MG TABLET PO SCH (12:36)
--- NOTE | 2017-05-12 16:57 | Internal Med Progress Note ---
Date of Encounter: 05/12/17 Time of Encounter: 14:00 - Assessment and plan (1) Chest pain Current Visit: Yes Status: Acute Assessment and plan: presented with chest pain for the last 3 months. Has known CAD as noted below. Isosorbide increased on admission with no improvement in chest pain. Serial troponin is negative. EKG with nonspecific ST changes. Evaluated by cardiology who noted atypical, reproducible chest pain. Cardiology did not feel chest discomfort was consistent with a cardiac etiology, no further cardiac testing indicated this time. Chest pain possibly secondary to viral etiology as she is reporting diffuse muscle aches and myalgias. Respiratory PCR pending. Qualifiers: Chest pain type: unspecified Qualified Code(s): R07.9 - Chest pain, unspecified (2) CAD in [place] artery Current Visit: No Status: Acute Assessment and plan: per hx. 07/2015 [facility] with successful PTCA/Drug-Eluting Stent placement in the body of the SVG - RPDA graft (within a previous stent). 08/2016 stress test with fixed defect consistent with previous MIs. Cont ASA, effient, nitrate, nitrate, statin. (3) HTN (hypertension) Current Visit: No Status: Chronic Assessment and plan: per hx. BP soft/borderline. Holding long-acting nitrate, give IV fluids. Monitor BP. Qualifiers: Hypertension type: essential hypertension Qualified Code(s): I10 - Essential (primary) hypertension (4) Fibromyalgia Current Visit: No Status: Chronic Assessment and plan: Per history. Continue home gabapentin. (5) DVT prophylaxis Current Visit: No Status: Acute Assessment and plan: heparin - Subjective Interval history: Seen and examined at bedside. Says she doesn't feel well today. C/o body aches, general weakness and malaise. She feels tired and wants to sleep all the time. No CP or SOB on my exam - Constitutional Vitals: Temp Pulse Resp BP Pulse Ox 97.8 F 82 17 93/59 93 05/12/17 15:52 05/12/17 15:52 05/12/17 15:52 05/12/17 15:52 05/12/17 15:52 General appearance: Present: A&O X 3, pleasant, no acute distress, answers questions appropriately - Head Head exam: Present: atraumatic, normocephalic - Eye Eye exam: Present: PERRL, conjuntiva pink, sclera anicteric Pupils: Present: PERRL - Neck Neck exam general surgery: Present: supple, trachea midline. Absent: lymphadenopathy - Respiratory Respiratory exam: Present: CTAB. Absent: accessory muscle use, rales, rhonchi, wheezes - Cardiovascular Cardiovascular exam: Present: RRR, +S1, +S2. Absent: diastolic murmur, gallop, rubs, systolic murmur - GI/Abdominal GI/Abdominal exam: Present: normal bowel sounds, soft, no peritoneal signs. Absent: distended, tenderness - Extremities Exam Extremities exam: Present: warm, radial pulses palpable and symmetrical. Absent : calf tenderness, cyanotic, pedal edema - Neurological Exam Neurological exam: Present: CN II-XII intact, oriented X3, no focal deficits. Absent: pronater drift, facial droop, speech deficit - Skin Skin exam: Present: dry, intact Internal Medicine: Result - Labs CBC & Chem 7: 05/11/17 07:40 05/11/17 07:40 - ABG Interpretation ABG results: PT/INR, D-dimer PT 11.4 Seconds (9.4-12.1) 05/10/17 06:25 - VTE Documentation of Mechanical Device: Intermittent pneumatic compression device Consult Discharge Plan - Plan Referrals: Nickolas Zamora DO [Primary Care Provider] -
[2017-05-12] MEDS: 0.9 % Sodium Chloride 1,000 ML IVC SCH (18:28)
[2017-05-12] MEDS: Acetaminophen 325 MG TABLET PO PRN (18:39)
[2017-05-12 19:31] LABS: Adenovirus Not Detected (Not Detect); Bordetella Pertussis Not Detected (Not Detect); Chlamydophila pneumoniae Not Detected (Not Detect); Coronavirus 229E Not Detected (Not Detect); Coronavirus HKU1 Not Detected (Not Detect); Coronavirus NL63 Not Detected (Not Detect); Coronavirus OC43 Not Detected (Not Detect); Human Metapneumovirus Not Detected (Not Detect); Human Rhinovirus/Enterovirus Not Detected (Not Detect); Influenza A Subtype 2009 H1 Not Detected (Not Detect); Influenza A Untypeable Not Detected (Not Detect); Influenza B Not Detected (Not Detect); Mycoplasma pneumoniae Not Detected (Not Detect); Parainfluenza Virus 1 Not Detected (Not Detect); Parainfluenza Virus 2 Not Detected (Not Detect); Parainfluenza Virus 3 Not Detected (Not Detect); Parainfluenza Virus 4 Not Detected (Not Detect); Respiratory Syncytial Virus Not Detected (Not Detect)
--- NOTE | 2017-05-12 20:05 | Electrocardiograph Report ---
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
[2017-05-12] MEDS: ALPRAZolam 1 MG TABLET PO PRN (21:31)
[2017-05-13 04:46] LABS: Hematocrit 34.1 % (35.3-44.9); Mean Corpuscular HGB Conc 32.8 g/dL (31.6-35.5); Mean Corpuscular Volume 88.3 fL (83.0-100.0); Mean Platelet Volume 11.1 fL (9.4-12.4); Platelet Count 154 K/mcL (140-400); Red Blood Count 3.86 M/mcL (3.82-4.97); Red Cell Distribution Width 13.2 % (11.5-14.5)
[2017-05-13 04:47] LABS: Hemoglobin 11.2 g/dL (11.5-15.4)
[2017-05-13 05:02] LABS: Alanine Aminotransferase 11 Units/L (7-52); Albumin 3.6 g/dL (3.5-5.7); Albumin/Globulin Ratio 1.7 (1.1-2.2); Alkaline Phosphatase 69 Units/L (34-104); Aspartate Amino Transferase 15 Units/L (13-39); BUN/Creatinine Ratio 19 (6-26); Bilirubin,Total 0.4 mg/dL (0.3-1.0); Blood Urea Nitrogen 13 mg/dL (6-20); Calcium 8.9 mg/dL (8.6-10.3); Carbon Dioxide 29 mEq/L (23-29); Chloride 103 mEq/L (98-107); Globulin 2.1 g/dL (2.4-3.5); Glucose 88 mg/dL (70-105); Osmolality,Calculated 286 (280-300); Potassium 4.1 mEq/L (3.5-5.1); Sodium 138 mEq/L (136-145); Total Protein 5.7 g/dL (6.4-8.9); eGFR For African Americans > 60 (> 60); eGFR For Non-African Americans > 60 (> 60)
[2017-05-13] MEDS: *HR* Heparin 5,000 UNIT/ML VIAL SQ SCH ×3 (05:51→20:58)
[2017-05-13] MEDS: Ranolazine 500 MG TAB.ER.12H PO SCH ×2 (10:46→20:58)
[2017-05-13] MEDS: BuPROPion XL (24 HR) 150 MG TABLET PO SCH (10:47)
[2017-05-13] MEDS: Gabapentin 300 MG CAPSULE PO SCH ×3 (10:48→20:58)
[2017-05-13] MEDS: Aspirin Enteric Coated 81 MG Tablet PO SCH (10:53)
[2017-05-13] MEDS: 0.9 % Sodium Chloride 1,000 ML IVC SCH (10:53)
--- NOTE | 2017-05-13 17:05 | Internal Med Progress Note ---
Date of Encounter: 05/13/17 Time of Encounter: 15:00 - Assessment and plan (1) Bronchitis Current Visit: Yes Status: Acute Assessment and plan: suspected with persistent complaints of general weakness, malaise and diminished breath sounds. CXR nonacute, CTA without evidence of pneumonia/ infiltrates. Start azithromycin, bronchodilators. (2) Chest pain Current Visit: Yes Status: Acute Assessment and plan: presented with chest pain for the last 3 months. Has known CAD as noted below. Isosorbide increased on admission with no improvement in chest pain. Serial troponin is negative. EKG with nonspecific ST changes. Evaluated by cardiology who noted atypical, reproducible chest pain. Cardiology did not feel chest discomfort was consistent with a cardiac etiology, no further cardiac testing indicated this time. Chest pain possibly secondary to fibromyalgia. Qualifiers: Chest pain type: unspecified Qualified Code(s): R07.9 - Chest pain, unspecified (3) CAD in [place] artery Current Visit: No Status: Acute Assessment and plan: per hx. 07/2015 [facility] with successful PTCA/Drug-Eluting Stent placement in the body of the SVG - RPDA graft (within a previous stent). 08/2016 stress test with fixed defect consistent with previous MIs. Cont ASA, effient, nitrate, nitrate, statin. (4) HTN (hypertension) Current Visit: No Status: Chronic Assessment and plan: per hx. BP soft/borderline. Holding long-acting nitrate, give IV fluids. Monitor BP. Qualifiers: Hypertension type: essential hypertension Qualified Code(s): I10 - Essential (primary) hypertension (5) Fibromyalgia Current Visit: No Status: Chronic Assessment and plan: Per history. Continue home gabapentin. (6) DVT prophylaxis Current Visit: No Status: Acute Assessment and plan: heparin - Subjective Interval history: Seen and examined at bedside. Still says she doesn't feel well. Says she is weak and tired. No CP or SOB - Constitutional Vitals: Temp Pulse Resp BP Pulse Ox 98.2 F 69 16 90/58 97 05/13/17 15:58 05/13/17 15:58 05/13/17 15:58 05/13/17 15:58 05/13/17 15:58 General appearance: Present: A&O X 3, pleasant, no acute distress, answers questions appropriately - Head Head exam: Present: atraumatic, normocephalic - Eye Eye exam: Present: PERRL, conjuntiva pink, sclera anicteric Pupils: Present: PERRL - Neck Neck exam general surgery: Present: supple, trachea midline. Absent: lymphadenopathy - Respiratory Respiratory exam: Present: decreased breath sounds. Absent: accessory muscle use, rales, rhonchi, wheezes - Cardiovascular Cardiovascular exam: Present: RRR, +S1, +S2. Absent: diastolic murmur, gallop, rubs, systolic murmur - GI/Abdominal GI/Abdominal exam: Present: normal bowel sounds, soft, no peritoneal signs. Absent: distended, tenderness - Extremities Exam Extremities exam: Present: warm, radial pulses palpable and symmetrical. Absent : calf tenderness, cyanotic, pedal edema - Neurological Exam Neurological exam: Present: CN II-XII intact, oriented X3, no focal deficits. Absent: pronater drift, facial droop, speech deficit - Skin Skin exam: Present: dry, intact Internal Medicine: Result - Labs CBC & Chem 7: 05/13/17 03:13 05/13/17 03:13 Labs: Short CBC 05/13/17 Range/Units 03:13 WBC 5.8 (4.3-11.1) K/mcL Hgb 11.2 L D (11.5-15.4) g/dL Hct 34.1 L (35.3-44.9) % Plt Count 154 (140-400) K/mcL BMP 05/13/17 03:13 Sodium 138 Potassium 4.1 Chloride 103 Carbon Dioxide 29 BUN 13 Creatinine 0.69 Glucose 88 Calcium 8.9 Liver Function 05/13/17 Range/Units 03:13 Total Bilirubin 0.4 (0.3-1.0) mg/dL AST 15 (13-39) Units/L ALT 11 (7-52) Units/L Alkaline Phosphatase 69 (34-104) Units/L Albumin 3.6 (3.5-5.7) g/dL - ABG Interpretation ABG results: PT/INR, D-dimer PT 11.4 Seconds (9.4-12.1) 05/10/17 06:25 - Impressions Impressions Chest CTA 05/13/17 14:35 IMPRESSION: 1. No evidence of pulmonary embolus or acute pulmonary abnormality. 2. Mild cardiomegaly. 3. Stable 5 mm nodule in the superior segment of the right lower lobe. Given stability since August 08, 2015, no additional follow-up for this finding is recommended. D/ / 05/13/2017 15:51:53 Nayan Yang MD / michelle Interpreting Provider: Nayan Yang MD - VTE Documentation of Mechanical Device: Intermittent pneumatic compression device Consult Discharge Plan - Plan Referrals: Nickolas Zamora, [Primary Care Provider] - 05/19/17 3:15 pm (This appointment will be with sEe Doyle. )
[2017-05-13] MEDS: Azithromycin 500 MG in D5% in Water 250 ML IVPB SCH (18:03)
[2017-05-13] MEDS: ALPRAZolam 1 MG TABLET PO PRN (18:04)
[2017-05-13] MEDS: Ondansetron 4 MG/2 ML VIAL IVP PRN (18:07)
[2017-05-13] MEDS: Ipratropium/Albuterol Neb 3 ML IH SCH (20:33)
[2017-05-13] MEDS: Ketorolac 15 MG/ML VIAL IVP PRN (23:21)
[2017-05-14] MEDS: Ipratropium/Albuterol Neb 3 ML IH SCH ×6 (00:18→20:13)
[2017-05-14] MEDS ORDERED: Gabapentin 300 MG CAPSULE PO ONE (00:34)
[2017-05-14] MEDS ORDERED: Ketorolac 15 MG/ML VIAL IVP ONE (00:39)
[2017-05-14] MEDS: *HR* Heparin 5,000 UNIT/ML VIAL SQ SCH ×3 (05:44→21:24)
[2017-05-14] MEDS: Gabapentin 300 MG CAPSULE PO SCH ×3 (08:04→21:23)
[2017-05-14] MEDS: Ranolazine 500 MG TAB.ER.12H PO SCH ×2 (08:04→21:22)
[2017-05-14] MEDS: Aspirin Enteric Coated 81 MG Tablet PO SCH (08:05)
[2017-05-14] MEDS: BuPROPion XL (24 HR) 150 MG TABLET PO SCH (08:05)
[2017-05-14] MEDS: Ketorolac 15 MG/ML VIAL IVP PRN ×3 (08:12→22:42)
[2017-05-14] MEDS: 0.9 % Sodium Chloride 1,000 ML IVC SCH ×2 (08:13→14:44)
[2017-05-14] MEDS: Ondansetron 4 MG/2 ML VIAL IVP PRN (14:52)
--- NOTE | 2017-05-14 16:09 | Internal Med Progress Note ---
Date of Encounter: 05/14/17 Time of Encounter: 16:06 - Assessment and plan (1) Malaise and fatigue Current Visit: Yes Status: Acute Assessment and plan: cont to report generalized weakness/malaise. Thinks she may have had a fever overnight. Respiratory PCR negative. She has had low-grade fevers while inpatient. Will empirically treat for influenza despite negative respiratory PCR with her continued symptoms of general weakness and malaise. Monitor clinical response. (2) Bronchitis Current Visit: Yes Status: Acute Assessment and plan: suspected with persistent complaints of general weakness, malaise and diminished breath sounds. CXR nonacute, CTA without evidence of pneumonia/ infiltrates. Start azithromycin, bronchodilators. (3) Chest pain Current Visit: Yes Status: Acute Assessment and plan: presented with chest pain for the last 3 months. Has known CAD as noted below. Isosorbide increased on admission with no improvement in chest pain. Serial troponin is negative. EKG with nonspecific ST changes. Evaluated by cardiology who noted atypical, reproducible chest pain. Cardiology did not feel chest discomfort was consistent with a cardiac etiology, no further cardiac testing indicated this time. Chest pain possibly secondary to fibromyalgia. Qualifiers: Chest pain type: unspecified Qualified Code(s): R07.9 - Chest pain, unspecified (4) CAD in [place] artery Current Visit: No Status: Acute Assessment and plan: per hx. 07/2015 [facility] with successful PTCA/Drug-Eluting Stent placement in the body of the SVG - RPDA graft (within a previous stent). 08/2016 stress test with fixed defect consistent with previous MIs. Cont ASA, effient, nitrate, nitrate, statin. (5) HTN (hypertension) Current Visit: No Status: Chronic Assessment and plan: per hx. BP soft/borderline. Holding long-acting nitrate, give IV fluids. Monitor BP. Qualifiers: Hypertension type: essential hypertension Qualified Code(s): I10 - Essential (primary) hypertension (6) Fibromyalgia Current Visit: No Status: Chronic Assessment and plan: Per history. Continue home gabapentin. (7) DVT prophylaxis Current Visit: No Status: Acute Assessment and plan: heparin - Subjective Interval history: Seen and examined at bedside. Still says she doesn't feel well, still with general weakness and malaise. Feels tired and weak. Still thinks she had a fever overnight. Says she is not sure if she can go home today and requesting lumbar day in the hospital. No chest pain or shortness of breath does have nonproductive cough. - Constitutional Vitals: Temp Pulse Resp BP Pulse Ox 98.1 F 71 15 120/73 99 05/14/17 15:12 05/14/17 15:12 05/14/17 15:12 05/14/17 15:12 05/14/17 15:12 General appearance: Present: A&O X 3, pleasant, no acute distress, answers questions appropriately - Head Head exam: Present: atraumatic, normocephalic - Eye Eye exam: Present: PERRL, conjuntiva pink, sclera anicteric Pupils: Present: PERRL - Neck Neck exam general surgery: Present: supple, trachea midline. Absent: lymphadenopathy - Respiratory Respiratory exam: Present: CTAB. Absent: accessory muscle use, rales, rhonchi, wheezes - Cardiovascular Cardiovascular exam: Present: RRR, +S1, +S2. Absent: diastolic murmur, gallop, rubs, systolic murmur - GI/Abdominal GI/Abdominal exam: Present: normal bowel sounds, soft, no peritoneal signs. Absent: distended, tenderness - Extremities Exam Extremities exam: Present: warm, radial pulses palpable and symmetrical. Absent : calf tenderness, cyanotic, pedal edema - Neurological Exam Neurological exam: Present: CN II-XII intact, oriented X3, no focal deficits. Absent: pronater drift, facial droop, speech deficit - Skin Skin exam: Present: dry, intact Internal Medicine: Result - Labs CBC & Chem 7: 05/13/17 03:13 05/13/17 03:13 - ABG Interpretation ABG results: PT/INR, D-dimer PT 11.4 Seconds (9.4-12.1) 05/10/17 06:25 - Impressions Impressions Chest CTA 05/13/17 14:35 IMPRESSION: 1. No evidence of pulmonary embolus or acute pulmonary abnormality. 2. Mild cardiomegaly. 3. Stable 5 mm nodule in the superior segment of the right lower lobe. Given stability since August 08, 2015, no additional follow-up for this finding is recommended. D/ / 05/13/2017 15:51:53 Nayan Yang MD / michelle Interpreting Provider: Nayan Yang MD - VTE Documentation of Mechanical Device: Intermittent pneumatic compression device Consult Discharge Plan - Plan Referrals: Nickolas Zamora DO [Primary Care Provider] - 05/19/17 3:15 pm (This appointment will be with Ese Doyle. )
[2017-05-14] MEDS ORDERED: 0.9 % Sodium Chloride 1,000 ML IVC SCH (17:00)
[2017-05-14] MEDS: Azithromycin 500 MG in D5% in Water 250 ML IVPB SCH (18:15)
[2017-05-14] MEDS: GuaiFENesin/Dextromethorphan TABLET PO SCH (21:22)
[2017-05-15] MEDS: Ipratropium/Albuterol Neb 3 ML IH SCH ×4 (00:02→11:42)
[2017-05-15] MEDS: 0.9 % Sodium Chloride 1,000 ML IVC SCH (02:43)
[2017-05-15] MEDS: Ketorolac 15 MG/ML VIAL IVP PRN ×2 (04:40→11:08)
[2017-05-15 05:23] LABS: Hematocrit 32.8 % (35.3-44.9); Hemoglobin 10.8 g/dL (11.5-15.4); Mean Corpuscular HGB Conc 32.9 g/dL (31.6-35.5); Mean Corpuscular Hemoglobin 29.4 pg (28.0-33.3); Mean Corpuscular Volume 89.4 fL (83.0-100.0); Mean Platelet Volume 11.6 fL (9.4-12.4); Platelet Count 143 K/mcL (140-400); Red Blood Count 3.67 M/mcL (3.82-4.97); Red Cell Distribution Width 13.5 % (11.5-14.5)
[2017-05-15 05:29] LABS: BUN/Creatinine Ratio 16 (6-26); Blood Urea Nitrogen 10 mg/dL (6-20); Calcium 8.6 mg/dL (8.6-10.3); Carbon Dioxide 24 mEq/L (23-29); Chloride 108 mEq/L (98-107); Glucose 113 mg/dL (70-105); Osmolality,Calculated 286 (280-300); Potassium 3.7 mEq/L (3.5-5.1); Sodium 138 mEq/L (136-145); eGFR For African Americans > 60 (> 60); eGFR For Non-African Americans > 60 (> 60)
[2017-05-15] MEDS: *HR* Heparin 5,000 UNIT/ML VIAL SQ SCH (06:04)
[2017-05-15] MEDS: Aspirin Enteric Coated 81 MG Tablet PO SCH (07:55)
[2017-05-15] MEDS: GuaiFENesin/Dextromethorphan TABLET PO SCH (07:55)
[2017-05-15] MEDS: Gabapentin 300 MG CAPSULE PO SCH (07:55)
[2017-05-15] MEDS: Ranolazine 500 MG TAB.ER.12H PO SCH (07:56)
[2017-05-15] MEDS: BuPROPion XL (24 HR) 150 MG TABLET PO SCH (07:57)
[2017-05-15 11:30] VITALS: BP 91/53
--- NOTE | 2017-05-15 13:23 | Discharge Summary ---
Date of Encounter: 05/15/17 Time of Encounter: 13:12 - Discharge Diagnosis (1) Malaise and fatigue Priority: Primary Status: Acute Comments: reported generalized weakness/malaise and low grad fevers. Respiratory PCR negative however will empirically treat for influenza despite negative respiratory PCR with her continued symptoms of general weakness and malaise. (2) Bronchitis Priority: Primary Status: Acute Comments: suspected with persistent complaints of general weakness, malaise and productive cough. CXR non-acute, CTA without evidence of pneumonia/ infiltrates. Cont azithromycin, bronchodilators. (3) Chest pain Priority: Primary Status: Acute Comments: presented with chest pain for the last 3 months. Has known CAD as noted below. Isosorbide increased on admission with no improvement in chest pain. Serial troponin is negative. EKG with nonspecific ST changes. Evaluated by cardiology who noted atypical, reproducible chest pain. Cardiology did not feel chest discomfort was consistent with a cardiac etiology, no further cardiac testing indicated this time. Chest pain possibly secondary to fibromyalgia flare. Qualifiers: Chest pain type: unspecified Qualified Code(s): R07.9 - Chest pain, unspecified (4) CAD in [place] artery Priority: Primary Status: Acute Comments: per hx. 07/2015 [facility] with successful PTCA/Drug-Eluting Stent placement in the body of the SVG - RPDA graft (within a previous stent). 08/2016 stress test with fixed defect consistent with previous MIs. Cont ASA, effient, nitrate, nitrate, statin. (5) HTN (hypertension) Priority: Secondary Status: Chronic Comments: per hx. BP soft/borderline. Home BB and nitrate decreased. Follow-up with PCP within 1 week for BP recheck Qualifiers: Hypertension type: essential hypertension Qualified Code(s): I10 - Essential (primary) hypertension (6) Fibromyalgia Priority: Primary Status: Acute Comments: per hx. patient suspects fibromyalgia flare with increased lower back and leg pain. Discharge home on increased dose of gabapentin for 2 weeks; recommend follow-up with PCP within 2 weeks. Hospital course: Ms. Bartlett is a 51 year old female with PMH CAD, hypertension, COPD and fibromyalgia who presented to [facility] 05[facility]10[facility]2017 with complaints of chest pain. She was placed in observation status for further workup and treatment. Serial troponins were negative, EKG without new ischemic changes. Recent TTE with stable LV systolic function. CTA negative for pulmonary embolism or infiltrates. She was evaluated by cardiology who felt chest pain was atypical and no further cardiac testing was warranted at this time. She continued to complain of general weakness and malaise throughout hospitalization; history PCR negative however given her persistent complaints of malaise and diffuse body aches she was empirically treated with Tamiflu. She additionally complained of shortness of breath and cough and was treated with his other myosin for suspected bronchitis with improvement in symptoms. Patient suspected increase malaise and discomfort possibly secondary to fibromyalgia; she was discharged home on a 2 week dose of gabapentin (home dose 600 mg 3 times a day and was discharged home on 900 mg 3 times a day). She was significantly improved on day of discharge and progressing towards baseline. Denied chest pain, had some residual shortness of breath improved from presentation. Her home BB and nitrate was decreased due to soft/borderline BP. She was discharged home in stable condition with outpatient follow-up. See assessment and plan for further details. - Time Spent with Patient Total time spent providing and/or coordinating discharge services: - Discharge Medications Prescriptions: Ipratropium/Albuterol Neb [Duoneb] 3 ml IH Q4HR PRN #60 vial.neb PRN Reason: Shortness Of Breath/Wheezing Azithromycin [Zithromax] 250 mg PO DAILY #4 tablet Gabapentin [Neurontin] 900 mg PO TID #126 capsule Oseltamivir [Tamiflu] 75 mg PO BID #8 capsule Home Medications: Alprazolam [Xanax] 1 mg PO TID PRN 02/17/15 [History] Paroxetine [Paxil] 45 mg PO DAILY 02/17/15 [History] Ranolazine [Ranexa] 1,000 mg PO BID 02/17/15 [History] Aspirin Enteric Coated [Aspirin EC] 81 mg PO DAILY #30 tablet. 07/15/15 [Rx] Prasugrel [Effient] 10 mg PO DAILY #30 tablet 07/15/15 [Rx] Albuterol Sulfate [Ventolin Hfa] 2 puff IH Q4H PRN 10/18/15 [History] Isosorbide MONOnitrate (24 HR) [Imdur] 60 mg PO DAILY #0 10/19/15 [Rx] Pravastatin Sodium [Pravachol] 40 mg PO HS 07/24/16 [History] BuPROPion XL (24 HR) [Wellbutrin Xl] 150 mg PO DAILY 08/18/16 [History] Nitroglycerin [Nitrostat] 0.4 mg SL Q5M PRN 08/18/16 [History] hydrOXYzine pamoate [HydrOXYzine Pamoate] 25 mg PO BID PRN 08/18/16 [History] Ondansetron HCl 4 mg PO Q8H PRN #12 tablet 08/20/16 [Rx] Carvedilol [Coreg] 6.25 mg PO BIDWM 05/10/17 [History] Fluticasone/Vilanterol [Breo Ellipta 100-25 Mcg INH] 1 puff IH BID 05/10/17 [ History] Furosemide [Lasix] 40 mg PO DAILY 05/10/17 [History] Ibuprofen [Motrin] 800 mg PO Q8HR 05/10/17 [History] Lisinopril 2.5 mg PO DAILY 05/10/17 [History] Omeprazole [PriLOSEC] 20 mg PO DAILY 05/10/17 [History] Potassium Chloride [Klor-Con Sprinkle] 10 meq PO DAILY 05/10/17 [History] Azithromycin [Zithromax] 250 mg PO DAILY #4 tablet 05/15/17 [Rx] Gabapentin [Neurontin] 900 mg PO TID #126 capsule 05/15/17 [Rx] Ipratropium/Albuterol Neb [Duoneb] 3 ml IH Q4HR PRN #60 vial.neb 05/15/17 [Rx] Oseltamivir [Tamiflu] 75 mg PO BID #8 capsule 05/15/17 [Rx] Allergies/Adverse Reactions: 3 Allergy/AdvReac Type Severity Reaction Status Date / Time azithromycin Allergy Anaphylaxis Verified 07/24/16 19:59 latex Allergy Anaphylaxis Verified 07/24/16 19:59 Penicillins [PCN] Allergy Anaphylaxis Verified 07/24/16 19:59 acetaminophen [From Percocet] AdvReac See Verified 05/10/17 03:41 Comments adhesive tape AdvReac Rash Verified 07/24/16 19:59 Oxycodone [From Percocet] AdvReac See Verified 05/10/17 03:41 Comments Date of admission: 05/10/17 03:23 Primary care physician: Nickolas Zamora DO Consults: 05/11/17 15:20 Consult to Cardiology [CONS] Routine Comment: Consulting Provider: Cardiology [place] Reason for Consult: chest pain. Call Completed: Yes Discharging clinician: Samaria Gallardo Anticipated date of discharge: 05/15/17 - Constitutional Vitals: Temp Pulse Resp BP Pulse Ox 97.3 F L 66 15 91/53 98 05/15/17 11:28 05/15/17 11:28 05/15/17 11:43 05/15/17 11:28 05/15/17 11:43 General appearance: Present: A&O X 3, pleasant, no acute distress, answers questions appropriately - Head Head exam: Present: atraumatic, normocephalic - Eye Eye exam: Present: PERRL, conjuntiva pink, sclera anicteric Pupils: Present: PERRL - Neck Neck exam general surgery: Present: supple, trachea midline. Absent: lymphadenopathy - Respiratory Respiratory exam: Present: CTAB. Absent: accessory muscle use, rales, rhonchi, wheezes - Cardiovascular Cardiovascular exam: Present: RRR, +S1, +S2. Absent: diastolic murmur, gallop, rubs, systolic murmur - GI/Abdominal GI/Abdominal exam: Present: normal bowel sounds, soft, no peritoneal signs. Absent: distended, tenderness - Extremities Exam Extremities exam: Present: warm, radial pulses palpable and symmetrical. Absent : calf tenderness, cyanotic, pedal edema - Neurological Exam Neurological exam: Present: CN II-XII intact, oriented X3, no focal deficits. Absent: pronater drift, facial droop, speech deficit - Skin Skin exam: Present: dry, intact - Patient Status Disposition: Home, Self-Care Condition: Good Functional capacity at discharge: independent ambulation Overall status at discharge: patient is progressing back to baseline - Discharge Instructions Instructions: Fibromyalgia (DC), Azithromycin (By mouth), Oseltamivir (By mouth ), Influenza (DC) Follow Up With: Nickolas Zamora DO [Primary Care Provider] - 05/19/17 3:15 pm (This appointment will be with Ese Doyle. ) Forms: Work/School Release - Diet and Activity Activity: increase activity as tolerated Diet: advance to your usual diet - VTE Documentation of Mechanical Device: Intermittent pneumatic compression device
== END 2017-05-15 15:45 | disposition home or self-care (01) ==
LOC: EMEROO 01:49 → 3BNU 01:49 → SUATTDRO 03:23 → 3BNU 03:47
PROVIDERS: ADMIT Internal Medicine; ATTEND Registered Nurse

== ENCOUNTER 2017-07-24 16:04 | Inpatient (IN) ==
--- NOTE | 2017-07-24 16:09 | Emergency Department Note ---
Disposition Clinical Impression: Chest pain Qualifiers: Chest pain type: unspecified Qualified Code(s): R07.9 - Chest pain, unspecified Disposition: Admitted As Inpatient Condition: Fair Forms: ED Satisfaction Letter Time of Disposition: 18:43 Chest Pain HPI - General Chief Complaint: ED Chest Pain Stated Complaint: "chest pain" Time Seen by Provider: 07/24/17 16:06 Source: patient, EMS Mode of arrival: EMS Limitations: no limitations Vital Signs Reviewed: Yes Nursing Notes Reviewed: Yes - History of Present Illness HPI Narrative: 52-year-old female with a history of heart disease last stents about a year ago comes in complaining of some intermittent chest pain. Been nauseated and had some vomiting says there was some blood in the vomit. Pt complaint: chest pain Onset (ago): Just [employer]NA[employer] HE[employer] FAILURE Duration: intermittent Onset: during rest Pain Location: substernal, left chest Severity: moderate Quality: tightness, aching Pain Radiation: none Improves with: nothing Worsens with: nothing Context: other (History of heart disease) Associated symptoms: Reports: nausea, vomiting Treatments prior to arrival chest pain: none - Related Data Home Medications Medication Instructions Recorded Confirmed Alprazolam [Xanax] 1 mg PO TID PRN 02/17/15 05/10/17 Paroxetine [Paxil] 45 mg PO DAILY 02/17/15 05/10/17 Ranolazine [Ranexa] 1,000 mg PO BID 02/17/15 05/10/17 Albuterol Sulfate [Ventolin Hfa] 2 puff IH Q4H PRN 10/18/15 05/10/17 Pravastatin Sodium [Pravachol] 40 mg PO HS 07/24/16 05/10/17 BuPROPion XL (24 HR) [Wellbutrin 150 mg PO DAILY 08/18/16 05/10/17 Xl] Nitroglycerin [Nitrostat] 0.4 mg SL Q5M PRN 08/18/16 05/10/17 hydrOXYzine pamoate [HydrOXYzine 25 mg PO BID PRN 08/18/16 05/10/17 Pamoate] Fluticasone/Vilanterol [Breo 1 puff IH BID 05/10/17 05/10/17 Ellipta 100-25 Mcg INH] Furosemide [Lasix] 40 mg PO DAILY 05/10/17 05/10/17 Ibuprofen [Motrin] 800 mg PO Q8HR 05/10/17 05/10/17 Lisinopril 2.5 mg PO DAILY 05/10/17 05/10/17 Omeprazole [PriLOSEC] 20 mg PO DAILY 05/10/17 05/10/17 Potassium Chloride [Klor-Con 10 meq PO DAILY 05/10/17 05/10/17 Sprinkle] Previous Rx's Medication Instructions Recorded Aspirin Enteric Coated [Aspirin EC] 81 mg PO DAILY #30 tablet.dr 07/15/15 Prasugrel [Effient] 10 mg PO DAILY #30 tablet 07/15/15 Ondansetron HCl 4 mg PO Q8H PRN #12 tablet 08/20/16 Azithromycin [Zithromax] 250 mg PO DAILY #4 tablet 05/15/17 Carvedilol 3.125 mg PO BID #60 tab 05/15/17 Gabapentin [Neurontin] 900 mg PO TID #126 capsule 05/15/17 Ipratropium/Albuterol Neb [Duoneb] 3 ml IH Q4HR PRN #60 vial.neb 05/15/17 Isosorbide MONOnitrate (24 HR) 30 mg PO DAILY #30 tab.er.24h 05/15/17 [Imdur] Oseltamivir [Tamiflu] 75 mg PO BID #8 capsule 05/15/17 Allergies Allergy/AdvReac Type Severity Reaction Status Date / Time azithromycin Allergy Anaphylaxis Verified 07/24/16 19:59 latex Allergy Anaphylaxis Verified 07/24/16 19:59 Penicillins [PCN] Allergy Anaphylaxis Verified 07/24/16 19:59 acetaminophen [From Percocet] AdvReac See Verified 05/10/17 03:41 Comments adhesive tape AdvReac Rash Verified 07/24/16 19:59 Oxycodone [From Percocet] AdvReac See Verified 05/10/17 03:41 Comments All systems ED: reviewed and negative except as stated. Constitutional: Denies: fever, chills, weakness, weight change Eyes: Denies: eye pain, eye discharge, vision change ENT ED: Denies: ear pain, throat pain, dental pain, hearing loss, epistaxis, congestion, dysphagia Cardiovascular: Reports: chest pain. Denies: palpitations, dyspnea on exertion , edema, syncope Respiratory: Denies: cough, dyspnea, wheezes, hemoptysis, stridor Gastrointestinal: Reports: nausea, vomiting. Denies: abdominal pain, diarrhea, constipation, hematemesis, melena, hematochezia Genitourinary: Denies: dysuria, frequency, hematuria, discharge Musculoskeletal: Denies: back pain, neck pain, arthralgia, myalgia Integumentary: Denies: rash, abrasion, lesions Neurological: Denies: headache, weakness, numbness, paresthesias, confusion, abnormal gait, vertigo Psychiatric: Denies: anxiety, depression, suicidal thoughts, homicidal thoughts , auditory hallucinations, visual hallucinations Endocrine: Denies: fatigue Hematological/Lymphatic: Denies: easy bleeding, easy bruising Allergic/Immunologic: Denies: facial swelling, urticaria Chest Pain PMH - Past Medical History Medical history: Reports: asthma, cardiomyopathy, CHF, coronary artery disease, fibromyalgia, hyperlipidemia, hypertension, kidney stones, migraine, myocardial infarction, TIA, other Surgical history: Reports: angioplasty/stent, , cholecystectomy, coronary bypass (CABG) Psychiatric history: Reports: anxiety, bipolar, depression, panic disorder, PTSD - Social History Smoking Status: Never smoker Alcohol use: Reports: none Drug use: Reports: none Physical Exam - General Limitations: no limitations General appearance: alert, in no apparent distress - Head Head exam: atraumatic, normocephalic, normal inspection - Eye Eye exam: Present: normal appearance, PERRL, EOMI - ENT ENT exam: normal exam, normal oropharynx, mucous membranes moist - Neck Neck exam: Present: normal inspection, full ROM, trachea midline - Chest Chest inspection: Present: normal inspection - Respiratory Respiratory exam: Present: normal lung sounds bilaterally - Cardiovascular Cardiovascular exam: Present: regular rate, normal rhythm, normal heart sounds - Abdominal Exam Abdominal exam: Present: soft, Non-Tender. Absent: tenderness, distention, guarding, rebound, rigidity - Extremities Exam Extremities exam: Present: normal inspection, full ROM. Absent: tenderness, pedal edema - Expanded Lower Extremity Exam Neurovascular/Tendon exam: Absent: motor deficit, sensory deficit, tendon deficit Gait: observed and normal - Back Exam Back exam: Present: normal inspection, full ROM. Absent: tenderness - Neurological Exam Neurological exam: Present: alert, oriented X3 - Psychiatric Psychiatric exam: Present: normal affect, normal mood - Skin Skin exam: Present: warm, dry, intact, normal color Course - Reevaluation(s) Reevaluation #1: This a 52-year-old with previous stent within a stent who comes in complaining of chest pain. Initially she had said she is diabetic and this did not feel like what she had prior to her previous heart attack but now she states she is not diabetic and she does feel like what she had prior to her previous stents. Her initial troponin is negative her EKG shows no acute change order to go ahead and admit her Time: 18:42 - Consultations Consultation #1: Discussed with , admit Time: 18:43 Chest Pain - Lab Data Lab results reviewed: Yes I reviewed the patient's lab results. Result diagrams: 07/24/17 16:45 Lab Results 07/24/17 07/24/17 07/24/17 Range/Units 16:45 16:45 16:45 WBC 6.3 (4.3-11.1) K/mcL RBC 4.28 (3.82-4.97) M/mcL Hgb 12.5 (11.5-15.4) g/dL Hct 37.5 (35.3-44.9) % MCV 87.6 (83.0-100.0) fL MCH 29.2 (28.0-33.3) pg MCHC 33.3 (31.6-35.5) g/dL RDW 13.4 (11.5-14.5) % Plt Count 188 (140-400) K/mcL MPV 10.9 (9.4-12.4) fL Immature Gran % 0.3 (0-4) % Seg Neutrophils % 61.3 % Lymphocytes % 27.3 % Monocytes % 6.7 % Eosinophils % 4.1 % Basophils % 0.3 % Neutrophils # 3.9 (1.6-8.9) K/mcL Lymphocytes # 1.7 (0.6-4.6) K/mcL Monocytes # 0.4 (0.0-1.3) K/mcL Eosinophils # 0.3 (0.0-0.6) K/mcL Basophils # 0.0 (0.0-0.2) K/mcL PT 11.3 (9.4-12.1) Seconds INR 1.1 APTT 27.8 (26.0-36.0) Seconds Troponin I < 0.03 (< 0.04) ng/mL - Radiology Data Radiology results reviewed: Yes I reviewed the patient's radiology results. Chest X-Ray 07/24/17 16:06 IMPRESSION: 1. Findings suggesting mild pulmonary edema. The appearance could be related to physiologic changes alone from poor inspiration. Follow-up full inspiration PA and lateral chest may be useful for better characterization of pulmonary findings. 2. Cardiomegaly. 3. Open heart surgery. D/ / Mayito Szymanski / Mayito Szymanski Interpreting Provider: Mayito Szymanski - EKG Data EKG attestation: Yes I reviewed and interpreted this EKG. EKG shows normal: sinus rhythm Rate: normal Rhythm: NSR [place]/QRS: normal Interpretation: no acute changes Heart Score - Score History: Moderately Suspicious EKG: Non Specific repolarisation Disturbance Age: 45-65 Risk Factors: Equal/Greater than 3 risk factor or history of atherosclerotic disease Troponin: Less than normal limit HEART Score Total: 5
[2017-07-24] MEDS ORDERED: *HR* FentaNYL (PF) 100 MCG/2 ML VIAL IVP ONE (17:00)
[2017-07-24] MEDS ORDERED: Ondansetron 4 MG/2 ML VIAL IVP ONE (17:00)
[2017-07-24 17:07] LABS: Basophils % 0.3 %; Eosinophils # 0.3 K/mcL (0.0-0.6); Eosinophils % 4.1 %; Hematocrit 37.5 % (35.3-44.9); Hemoglobin 12.5 g/dL (11.5-15.4); Immature Granulocytes % 0.3 % (0-4); Lymphocytes # 1.7 K/mcL (0.6-4.6); Lymphocytes % 27.3 %; Mean Corpuscular HGB Conc 33.3 g/dL (31.6-35.5); Mean Corpuscular Hemoglobin 29.2 pg (28.0-33.3); Mean Corpuscular Volume 87.6 fL (83.0-100.0); Mean Platelet Volume 10.9 fL (9.4-12.4); Monocytes # 0.4 K/mcL (0.0-1.3); Monocytes % 6.7 %; Neutrophils # 3.9 K/mcL (1.6-8.9); Platelet Count 188 K/mcL (140-400); Red Blood Count 4.28 M/mcL (3.82-4.97); Red Cell Distribution Width 13.4 % (11.5-14.5); Segmented Neutrophils % 61.3 %
[2017-07-24 17:14] LABS: INR 1.1; Prothrombin Time 11.3 Seconds (9.4-12.1)
[2017-07-24 17:17] LABS: Activated Partial Thrombo Time 27.8 Seconds (26.0-36.0)
[2017-07-24 17:35] LABS: Troponin I < 0.03 ng/mL (< 0.04)
[2017-07-24 18:55] LABS: BUN/Creatinine Ratio 25 (6-26); Blood Urea Nitrogen 13 mg/dL (6-20); Calcium 8.9 mg/dL (8.6-10.3); Carbon Dioxide 26 mEq/L (23-29); Chloride 110 mEq/L (98-107); Glucose 97 mg/dL (70-105); Osmolality,Calculated 292 (280-300); Potassium 4.2 mEq/L (3.5-5.1); Sodium 141 mEq/L (136-145); eGFR For African Americans > 60 (> 60); eGFR For Non-African Americans > 60 (> 60)
[2017-07-24] MEDS ORDERED: *HR* HYDROmorphone (PF) 1 MG/ML SYRINGE IVP ONE ×2 (19:05→23:25)
[2017-07-24] MEDS ORDERED: Naloxone 0.4 MG/ML INJ IVP PRN (19:33)
[2017-07-24] MEDS ORDERED: Ipratropium/Albuterol Neb 3 ML IH PRN (19:35)
[2017-07-24] MEDS ORDERED: ALPRAZolam 1 MG TABLET PO PRN (19:35)
--- NOTE | 2017-07-24 20:19 | Internal Med History&Physical ---
Date of Encounter: 07/24/17 Time of Encounter: 19:50 Internal Medicine - H&P: HPI Chief complaint: chest pain Admitted From: Home Plans for Post Hospital Care: Home History of present illness: Ms. Bartlett is a 52 year old female with PMH of Cardiomyopathy, CHF, CAD, fibromyalgia, HTN, HLD, anxiety, depression, obesity who presented to the ER for evaluation of chest pain. Pt reports of having pressure like left sided chest pain, initiating below her left breast with radiation up to the left neck. She states the pain started yesterday as she was walking up hill, associated symptoms were diaphoresis, nausea, and vomiting. States the pain subsided with rest. Reports of having the same episode earlier today while at rest which is what prompted her visit to the ER. Pt received Aspirin by EMS and pain was only resolved after she received IV dilaudid in the ER. During my evaluation, pt denies any chest pain, sob, palpitations, n/v, fever, or chills. Pt was recently discharged from the hospital in May 2017 after being worked up for similar chest pain. Medical management was recommended at that time. Pt's initial work up in the ER has been negative, negative TNI, no EKG changes. Past Med Surg Social Fam HX - Past Medical History Medical history: asthma, cardiomyopathy, CHF, coronary artery disease, fibromyalgia, hyperlipidemia, hypertension, kidney stones, migraine, myocardial infarction, TIA, other Psychiatric history: anxiety, bipolar, depression, panic disorder, PTSD - Past Surgical History Surgical History: angioplasty/stent, , cholecystectomy, coronary bypass (CABG) - Social History Smoking Status: Never smoker Smokeless Tobacco Status: No Alcohol use: none Drug use: none - Family History Mother Living Status: Hx Family Cardiac Disorders: Yes ([place]) Hx Family Respiratory Disorders: No Hx Family Cancer: No Hx Family GI Disorders: No Hx Family Endocrine Disorder: Yes (Diabetic) Hx Family Neuromuscular Disorders: Yes Hx Family Neurologic Disorders: Yes Hx Family HEENT Disorders: No Hx Family Autoimmune Disorders: No Father Living Status: Hx Family Cardiac Disorders: Yes Hx Family Neurologic Disorders: Yes (dementia) Internal Medicine - H&P: Meds Alprazolam [Xanax] 1 mg PO TID PRN 02/17/15 [History] Paroxetine [Paxil] 45 mg PO DAILY 12/12/15 [History] Ranolazine [Ranexa] 1,000 mg PO BID 02/17/15 [History] Aspirin Enteric Coated [Aspirin EC] 81 mg PO DAILY #30 tablet. 07/15/15 [Rx] Prasugrel [Effient] 10 mg PO DAILY #30 tablet 07/15/15 [Rx] Albuterol Sulfate [Ventolin Hfa] 2 puff IH Q4H PRN 10/18/15 [History] Pravastatin Sodium [Pravachol] 40 mg PO HS 07/24/16 [History] BuPROPion XL (24 HR) [Wellbutrin Xl] 150 mg PO DAILY 08/18/16 [History] Nitroglycerin [Nitrostat] 0.4 mg SL Q5M PRN 08/18/16 [History] Ondansetron HCl 4 mg PO Q8H PRN #12 tablet 08/20/16 [Rx] Fluticasone/Vilanterol [Breo Ellipta 100-25 Mcg INH] 1 puff IH BID 05/10/17 [ History] Furosemide [Lasix] 40 mg PO DAILY 05/10/17 [History] Ibuprofen [Motrin] 800 mg PO Q8HR 05/10/17 [History] Lisinopril 2.5 mg PO DAILY 05/10/17 [History] Omeprazole [PriLOSEC] 20 mg PO DAILY 05/10/17 [History] Potassium Chloride [Klor-Con Sprinkle] 10 meq PO DAILY 05/10/17 [History] Ipratropium/Albuterol Neb [Duoneb] 3 ml IH Q4HR PRN #60 vial.neb 05/15/17 [Rx] Carvedilol [Coreg] 6.25 mg PO BIDWM 07/24/17 [History] Gabapentin [Neurontin] 600 mg PO TID 07/24/17 [History] Isosorbide MONOnitrate (24 HR) [Imdur] 60 mg PO DAILY 07/24/17 [History] 3 Allergy/AdvReac Type Severity Reaction Status Date / Time azithromycin Allergy Anaphylaxis Verified 07/24/16 19:59 latex Allergy Anaphylaxis Verified 07/24/16 19:59 Penicillins [PCN] Allergy Anaphylaxis Verified 07/24/16 19:59 acetaminophen [From Percocet] AdvReac See Verified 05/10/17 03:41 Comments adhesive tape AdvReac Rash Verified 07/24/16 19:59 Oxycodone [From Percocet] AdvReac See Verified 05/10/17 03:41 Comments All Systems PM: A 10-system review of systems was performed and is negative for pertinent findings except as documented above in the HPI. - Constitutional Constitutional: as per HPI, no anorexia, no excessive sweating, no falls, no malaise, no night sweats - Constitutional Vitals: Temp Pulse Resp BP Pulse Ox 98.3 F 59 16 127/62 98 07/24/17 19:51 07/24/17 19:51 07/24/17 19:51 07/24/17 19:51 07/24/17 19:51 General appearance: Present: A&O X 3, no acute distress, obese, answers questions appropriately - Head Head exam: Present: atraumatic, normocephalic - Eye Eye exam: Present: conjuntiva pink, sclera anicteric - Respiratory Respiratory exam: Present: CTAB. Absent: accessory muscle use, rales, rhonchi, wheezes - Cardiovascular Cardiovascular exam: Present: RRR, +S1, +S2. Absent: diastolic murmur, gallop, rubs, systolic murmur - GI/Abdominal GI/Abdominal exam: Present: normal bowel sounds, soft, no peritoneal signs. Absent: distended, tenderness - Extremities Exam Extremities exam: Present: warm, radial pulses palpable and symmetrical. Absent : calf tenderness, pedal edema - Neurological Exam Neurological exam: Present: oriented X3 Internal Med - H&P Results - Labs CBC & Chem 7: 07/24/17 16:45 07/24/17 16:45 - Assessment and plan (1) Chest pain Current Visit: Yes Status: Acute Assessment and plan: Clinical presentation concerning for unstable angina Pt had similar presentation in may 2017 and medical management was recommended As per cardiology, pt is reported to have significant naive CAD not amenable to intervention will monitor serial TNI cardiology evaluation requested (please call consultation in am) nitro SL prn chest pain tele monitoring continue home dose of ASA, BB, statin, DWAYNE-inh, Imdur Will keep NPO after midnight for possible cardiac intervention in am Qualifiers: Chest pain type: unspecified Qualified Code(s): R07.9 - Chest pain, unspecified (2) Unstable angina Current Visit: No Status: Acute Assessment and plan: as listed above (3) Anxiety Current Visit: No Status: Chronic Assessment and plan: continue home meds (4) CAD (coronary artery disease) Current Visit: No Status: Chronic Qualifiers: Coronary Disease-Associated Artery/Lesion type: bypass graft [place] vs. transplanted heart: [place] heart Associated angina: with stable angina Qualified Code(s): I25.708 - Atherosclerosis of coronary artery bypass graft(s) , unspecified, with other forms of angina pectoris (5) HTN (hypertension) Current Visit: No Status: Chronic Assessment and plan: BP within acceptable range continue home meds will closely monitor BP Qualifiers: Hypertension type: essential hypertension Qualified Code(s): I10 - Essential (primary) hypertension (6) Ischemic cardiomyopathy Current Visit: No Status: Chronic Assessment and plan: continue home meds (7) Obesity (BMI 30-39.9) Current Visit: Yes Status: Chronic (8) DVT prophylaxis Current Visit: No Status: Acute Assessment and plan: heparin SQ - Time Spent With Patient Total time spent is greater than 50% in coordination of care (as documented) at patient's floor/unit and/or counseling patient:
[2017-07-24] MEDS: Gabapentin 300 MG CAPSULE PO SCH (20:33)
[2017-07-24] MEDS: Ranolazine 500 MG TAB.ER.12H PO SCH (20:33)
[2017-07-24] MEDS: Nitroglycerin 0.4 MG TAB.SUBL SL PRN ×3 (20:34→23:15)
[2017-07-24] MEDS: (Fluticasone/Vilanterol [Breo Ellipta 100-25 Mcg Inh]) IH SCH (23:09)
[2017-07-24] MEDS: Ibuprofen 800 MG TABLET PO SCH (23:32)
[2017-07-24] MEDS: Ondansetron ODT 4 MG TAB.RAPDIS PO PRN (23:32)
[2017-07-25] MEDS ORDERED: *HR* Promethazine 25 MG/ML VIAL IVP ONE (04:19)
[2017-07-25] MEDS: Nitroglycerin 0.4 MG TAB.SUBL SL PRN ×2 (04:29→04:36)
[2017-07-25 04:42] LABS: Basophils # 0.1 K/mcL (0.0-0.2); Basophils % 0.7 %; Eosinophils # 0.3 K/mcL (0.0-0.6); Hematocrit 37.8 % (35.3-44.9); Hemoglobin 12.4 g/dL (11.5-15.4); Immature Granulocytes % 0.3 % (0-4); Lymphocytes % 29.8 %; Mean Corpuscular HGB Conc 32.8 g/dL (31.6-35.5); Mean Corpuscular Hemoglobin 29.2 pg (28.0-33.3); Mean Corpuscular Volume 88.9 fL (83.0-100.0); Mean Platelet Volume 11.2 fL (9.4-12.4); Monocytes # 0.4 K/mcL (0.0-1.3); Monocytes % 5.7 %; Platelet Count 192 K/mcL (140-400); Red Blood Count 4.25 M/mcL (3.82-4.97); Red Cell Distribution Width 13.6 % (11.5-14.5); Segmented Neutrophils % 59.5 %
[2017-07-25 05:02] LABS: Troponin I < 0.03 ng/mL (< 0.04)
[2017-07-25 05:03] LABS: BUN/Creatinine Ratio 19 (6-26); Blood Urea Nitrogen 11 mg/dL (6-20); Calcium 8.9 mg/dL (8.6-10.3); Carbon Dioxide 27 mEq/L (23-29); Chloride 107 mEq/L (98-107); Chol/HDL Ratio 4.6 (0-4.9); Cholesterol 240 mg/dL (< 200); Glucose 98 mg/dL (70-105); HDL Cholesterol 52 mg/dL (40-59); LDL Cholesterol,Calculated 146 mg/dL (0-99); Magnesium 2.2 mg/dL (1.6-2.6); Osmolality,Calculated 289 (280-300); Phosphorous 5.2 mg/dL (2.7-4.5); Potassium 4.2 mEq/L (3.5-5.1); Sodium 140 mEq/L (136-145); Triglycerides 212 mg/dL (< 150); eGFR For African Americans > 60 (> 60); eGFR For Non-African Americans > 60 (> 60)
[2017-07-25] MEDS ORDERED: *HR* HYDROmorphone (PF) 1 MG/ML SYRINGE IVP ONE (05:03)
[2017-07-25] MEDS: *HR* Heparin 5,000 UNIT/ML VIAL SQ SCH ×2 (05:11→16:57)
[2017-07-25] MEDS: Ranolazine 500 MG TAB.ER.12H PO SCH ×2 (08:14→22:19)
[2017-07-25] MEDS: Isosorbide MONOnitrate (24 HR) 60 MG TAB.ER.24H PO SCH (08:14)
[2017-07-25] MEDS: Furosemide 40 MG TABLET PO SCH (08:14)
[2017-07-25] MEDS: Gabapentin 300 MG CAPSULE PO SCH ×3 (08:14→22:20)
[2017-07-25] MEDS: Ibuprofen 800 MG TABLET PO SCH ×2 (08:14→16:57)
[2017-07-25] MEDS: BuPROPion XL (24 HR) 150 MG TABLET PO SCH (08:14)
[2017-07-25] MEDS: Aspirin Enteric Coated 81 MG Tablet PO SCH (08:14)
[2017-07-25] MEDS: (Fluticasone/Vilanterol [Breo Ellipta 100-25 Mcg Inh]) IH SCH ×2 (08:15→23:56)
--- NOTE | 2017-07-25 13:17 | Internal Med Progress Note ---
Date of Encounter: 07/25/17 Time of Encounter: 13:15 - Assessment and plan (1) Chest pain Current Visit: Yes Status: Acute Assessment and plan: Clinical presentation concerning for unstable angina Pt had similar presentation in may 2017 and medical management was recommended As per cardiology, pt is reported to have significant [place] CAD not amenable to intervention serial tropnin negative x3 cardiology seen in consultation, recommends possible LHC on Thursday nitro SL prn chest pain tele monitoring continue home dose of ASA, BB, statin, DWAYNE-inh, Imdur Remain nothing by mouth for possible cardiac intervention in am Qualifiers: Chest pain type: unspecified Qualified Code(s): R07.9 - Chest pain, unspecified (2) Unstable angina Current Visit: Yes Status: Acute Assessment and plan: as listed above (3) Anxiety Current Visit: Yes Status: Chronic Assessment and plan: continue anxiolytics, no anxiety at this time (4) CAD (coronary artery disease) Current Visit: No Status: Chronic Assessment and plan: Continue cardiac medications Qualifiers: Coronary Disease-Associated Artery/Lesion type: bypass graft [place] vs. transplanted heart: [place] heart Associated angina: with stable angina Qualified Code(s): I25.708 - Atherosclerosis of coronary artery bypass graft(s) , unspecified, with other forms of angina pectoris (5) Ischemic cardiomyopathy Current Visit: No Status: Chronic Assessment and plan: continue home meds (6) HTN (hypertension) Current Visit: No Status: Chronic Assessment and plan: BP stable throughout the stay continue home anti-HTN medications will closely monitor BP Qualifiers: Hypertension type: essential hypertension Qualified Code(s): I10 - Essential (primary) hypertension (7) Obesity (BMI 30-39.9) Current Visit: Yes Status: Chronic Assessment and plan: Discussed lifestyle modifications (8) Hematemesis Current Visit: Yes Status: Acute Assessment and plan: Patient reports she had a one-time event of hematemesis prior to admission Presenting with substernal chest pain with radiation to the epigastrium, below left breast. No additional episodes of hematemesis since admission, H&H stable, if hematemesis resumes consider GI consult Start IV push Protonix and Carafate now, closely monitor H&H Qualifiers: Nausea presence: with nausea Qualified Code(s): K92.0 - Hematemesis (9) DVT prophylaxis Current Visit: Yes Status: Acute Assessment and plan: Continue heparin SQ - Time Spent With Patient Total time spent is greater than 50% in coordination of care (as documented) at patient's floor/unit and/or counseling patient: Greater than 35 minutes - Subjective Interval history: Ms. Bartlett is a 52 year old female with PMH of Cardiomyopathy, CHF, CAD, fibromyalgia, HTN, HLD, anxiety, depression, obesity who presented to the ER for evaluation of chest pain. Pt reports of having substernal chest pressure with radiation to the epigastrum and the below the left breast. Initially, she reports the pain was also in the left chest and left neck however, she is denying that upon my assessment. Patient seen and examined at bedside today continues to endorse intermittent chest discomfort rated 5/10. Also, she is continuing to endorse nausea but is not vomiting. - Constitutional Vitals: Temp Pulse Resp BP Pulse Ox 98.0 F 76 16 113/74 92 07/25/17 11:13 07/25/17 11:13 07/25/17 11:13 07/25/17 11:13 07/25/17 11:13 General appearance: Present: A&O X 3, no acute distress, obese, answers questions appropriately - Head Head exam: Present: atraumatic, normocephalic - Eye Eye exam: Present: PERRL, conjuntiva pink, sclera anicteric Pupils: Present: PERRL - Neck Neck exam general surgery: Present: supple, trachea midline. Absent: lymphadenopathy - Respiratory Respiratory exam: Present: CTAB. Absent: accessory muscle use, rales, rhonchi, wheezes - Cardiovascular Cardiovascular exam: Present: RRR, +S1, +S2. Absent: diastolic murmur, gallop, rubs, systolic murmur - GI/Abdominal GI/Abdominal exam: Present: normal bowel sounds, soft, no peritoneal signs. Absent: distended, tenderness - Extremities Exam Extremities exam: Present: warm, radial pulses palpable and symmetrical. Absent : calf tenderness, cyanotic, pedal edema - Neurological Exam Neurological exam: Present: CN II-XII intact, oriented X3, no focal deficits. Absent: pronater drift, facial droop, speech deficit - Skin Skin exam: Present: dry, intact Internal Medicine: Result - Labs CBC & Chem 7: 07/25/17 02:51 07/25/17 02:51 Labs: Short CBC 05/19/18 Range/Units 02:51 WBC 6.7 (4.3-11.1) K/mcL Hgb 12.4 (11.5-15.4) g/dL Hct 37.8 (35.3-44.9) % Plt Count 192 (140-400) K/mcL Neutrophils # 4.0 (1.6-8.9) K/mcL BMP 07/25/17 02:51 Sodium 140 Potassium 4.2 Chloride 107 Carbon Dioxide 27 BUN 11 Creatinine 0.58 L Glucose 98 Calcium 8.9 Cardiac Enzymes 07/24/17 07/25/17 Range/Units 22:43 02:51 Troponin I < 0.03 < 0.03 (< 0.04) ng/mL - ABG Interpretation ABG results: PT/INR, D-dimer PT 11.3 Seconds (9.4-12.1) 07/24/17 16:45 - Impressions Impressions Chest X-Ray 07/24/17 16:06 IMPRESSION: 1. Findings suggesting mild pulmonary edema. The appearance could be related to physiologic changes alone from poor inspiration. Follow-up full inspiration PA and lateral chest may be useful for better characterization of pulmonary findings. 2. Cardiomegaly. 3. Open heart surgery. D/ / Mayito Szymanski / Mayito Szymanski Interpreting Provider: Mayito Szymanski Consult Discharge Plan - Plan Referrals: Nickolas Zamora DO [Primary Care Provider] -
[2017-07-25] MEDS: Pantoprazole 40 MG VIAL IVP SCH (14:16)
[2017-07-25] MEDS: Ondansetron ODT 4 MG TAB.RAPDIS PO PRN ×2 (14:16→22:19)
--- NOTE | 2017-07-25 14:56 | Cardiology Consult Note ---
Date of Encounter: 07/25/17 Time of Encounter: 14:15 Assessment and Plan (1) Chest pain Current Visit: Yes Status: Acute Patient presents with symptoms concerning for unstable angina. Troponin negative x3. Non-specific ST/T wave changes noted on ECG. Pain free upon exam. Known obstructive CAD. Abnormal stress in 2017 correlated with known coronary anatomy. Last [facility] 2016 s/p PCI to bypass graft. Given ongoing symptoms despite maximal medical therapy, recommend [facility] with possible PCI. Plan for cath on Thursday. A/R/B discussed, patient is agreeable to proceed. NPO after MN on Thursday. Qualifiers: Chest pain type: chest pain due to myocardial ischemia Ischemic chest pain type: unstable angina pectoris Qualified Code(s): I20.0 - Unstable angina (2) CAD (coronary artery disease) Current Visit: No Status: Chronic Continue asa, statin, BB, nitrates, effient, ranexa. Plan as above. Qualifiers: Coronary Disease-Associated Artery/Lesion type: bypass graft [place] vs. transplanted heart: [place] heart Associated angina: with stable angina Qualified Code(s): I25.708 - Atherosclerosis of coronary artery bypass graft(s) , unspecified, with other forms of angina pectoris (3) Ischemic cardiomyopathy Current Visit: No Status: Chronic Discussion w patient/family: The assessment and plan as outlined above was discussed with the patient and/or family members who expressed understanding and agreement. All questions were answered. Thank you for involving us in the care of your patient. Please call with any questions. The patient will be discussed and reviewed with Dr. Oumou Babb; changes to be made accordingly. History of Present Illness Consult date: 07/25/17 Requesting physician: Bella Pedraza Consult reason: Chest pain Chief complaint: Chest pain History of present illness: Ms. Bartlett is a 51 year old female with PMHx significant for CAD s/p CABG (2006 ) and subsequent PCI, ICMP with systolic dysfunction, dyslipidemia, HTN, and fibromyalgia who presented to the [facility] with left-sided chest pressure and heaviness that worsened with exertion as walking up the hill. Reports discomfort radiated down arm which felt heavy; associated symptoms include fatigue, dyspnea, nausea and one episode of emesis. She took x3 NTG tabs which improved but did not resolve pain. Also took ASA. Upon exam, she is chest pain free. Reports generalized body aches and pain; states stems from fibromyalgia. Previous studies / procedures: TTE 12/19/2013: EF 40%. Moderate diastolic dysfunction. No significant valvular dysfunction. [facility] 08/10/2014: Left main normal. LAD proximal 100% stenosis. Circumflex mid 100% stenosis. RCA proximal 100% stenosis. RPDA 80% stenosis (2 BMSs placed). SAVAGE to mid LAD patent. Sequential SVG to OM1, OM 2 patent. SVG to RPDA patent. EF 35%. TTE 07/13/2015: EF 30-35%. Severe global hypokinesis. Apical segments not well visualized. No significant valvular dysfunction. RVSP was not well obtained. [facility] 07/12/2015: Left main normal. LAD mid 100% stenosis. Circumflex proximal 80 % and mid 99% stenosis (left and left collaterals). RCA 100% stenosis. SAVAGE to LAD patent. Sequential saphenous vein graft to OM1 and OM 2 occluded (attempted PCI performed, but was unsuccessful. SVG to PDA patent, but distal segment has 80% ISR. [facility] 07/13/2015: Successful DAMEON placement in the body of the SVG to RPDA graft ( within previous stent) TTE 10/12/2015: EF 35-40%. Mild diastolic dysfunction. No significant valvular dysfunction. Past Med Surg Social Fam HX - Past Medical History Attestation: Yes The following information was validated with the patient. Source: patient Medical history: asthma, cardiomyopathy, CHF, coronary artery disease, fibromyalgia, hyperlipidemia, hypertension, kidney stones, migraine, myocardial infarction, TIA, other Psychiatric history: anxiety, bipolar, depression, panic disorder, PTSD - Past Surgical History Surgical History: angioplasty/stent, , cholecystectomy, coronary bypass (CABG) - Social History Smoking Status: Never smoker Smokeless Tobacco Status: No Alcohol use: none Drug use: none - Family History Mother Living Status: Hx Family Cardiac Disorders: Yes ([place]) Hx Family Respiratory Disorders: No Hx Family Cancer: No Hx Family GI Disorders: No Hx Family Endocrine Disorder: Yes (Diabetic) Hx Family Neuromuscular Disorders: Yes Hx Family Neurologic Disorders: Yes Hx Family HEENT Disorders: No Hx Family Autoimmune Disorders: No Father Living Status: Hx Family Cardiac Disorders: Yes Hx Family Neurologic Disorders: Yes (dementia) Medications and Allergies Alprazolam [Xanax] 1 mg PO TID PRN 12/12/15 [History] Paroxetine [Paxil] 45 mg PO DAILY 02/17/15 [History] Ranolazine [Ranexa] 1,000 mg PO BID 02/17/15 [History] Aspirin Enteric Coated [Aspirin EC] 81 mg PO DAILY #30 tablet. 07/15/15 [Rx] Prasugrel [Effient] 10 mg PO DAILY #30 tablet 07/15/15 [Rx] Albuterol Sulfate [Ventolin Hfa] 2 puff IH Q4H PRN 10/18/15 [History] Pravastatin Sodium [Pravachol] 40 mg PO HS 07/24/16 [History] BuPROPion XL (24 HR) [Wellbutrin Xl] 150 mg PO DAILY 08/18/16 [History] Nitroglycerin [Nitrostat] 0.4 mg SL Q5M PRN 08/18/16 [History] Ondansetron HCl 4 mg PO Q8H PRN #12 tablet 08/20/16 [Rx] Fluticasone/Vilanterol [Breo Ellipta 100-25 Mcg INH] 1 puff IH BID 05/10/17 [ History] Furosemide [Lasix] 40 mg PO DAILY 05/10/17 [History] Ibuprofen [Motrin] 800 mg PO Q8HR 05/10/17 [History] Lisinopril 2.5 mg PO DAILY 05/10/17 [History] Omeprazole [PriLOSEC] 20 mg PO DAILY 05/10/17 [History] Potassium Chloride [Klor-Con Sprinkle] 10 meq PO DAILY 05/10/17 [History] Ipratropium/Albuterol Neb [Duoneb] 3 ml IH Q4HR PRN #60 vial.neb 05/15/17 [Rx] Carvedilol [Coreg] 6.25 mg PO BIDWM 07/24/17 [History] Gabapentin [Neurontin] 600 mg PO TID 07/24/17 [History] Isosorbide MONOnitrate (24 HR) [Imdur] 60 mg PO DAILY 07/24/17 [History] 3 Allergy/AdvReac Type Severity Reaction Status Date / Time azithromycin Allergy Anaphylaxis Verified 07/24/16 19:59 latex Allergy Anaphylaxis Verified 07/24/16 19:59 Penicillins [PCN] Allergy Anaphylaxis Verified 07/24/16 19:59 acetaminophen [From Percocet] AdvReac See Verified 05/10/17 03:41 Comments adhesive tape AdvReac Rash Verified 07/24/16 19:59 Oxycodone [From Percocet] AdvReac See Verified 05/10/17 03:41 Comments All Systems Review: The remainder of the systems were reviewed and are negative - Cardiovascular Cardiovascular: as per HPI Physical Examination Vital Signs, Last 4 Hours Temp Pulse Resp BP Pulse Ox 07/25/17 11:13 98.0 F 76 16 113/74 92 General: Conversant, No Apparent Distress HEENT: Atraumatic, Normocephaly Cardiac: Reg Rate and Rhythm, Normal S1 and S2 Lungs: Normal Breath Sounds Neuro: Alert and responsive Abdomen: Soft Skin: No rashes noted on visualized skin Musculoskeletal: No Chest Wall Tenderness Extremities: No Edema, Normal Pulses Results 07/25/17 02:51 07/25/17 02:51 Lab Results 07/24/17 07/25/17 07/25/17 22:43 02:51 02:51 WBC 6.7 Hgb 12.4 Hct 37.8 Plt Count 192 Sodium 140 Potassium 4.2 Chloride 107 Carbon Dioxide 27 BUN 11 Creatinine 0.58 L Glucose 98 Calcium 8.9 Magnesium 2.2 Troponin I < 0.03 < 0.03 Active Medications Albuterol Sulfate (Albuterol Inhaler) 2 puff IH Q4H PRN PRN Reason: Shortness Of Breath Stop: 01/23/18 19:36 Albuterol/Ipratropium (Duoneb) 3 ml IH Q4HR PRN PRN Reason: Shortness Of Breath/Wheezing Stop: 01/23/18 19:36 Alprazolam (Xanax) 1 mg PO TID PRN; Protocol PRN Reason: Anxiety Stop: 01/23/18 19:36 Aspirin (Aspirin Ec) 81 mg PO DAILY ALEXANDER Stop: 01/24/18 09:01 Last Admin: 07/25/17 08:14 Dose: 81 mg Atorvastatin Calcium (Lipitor) 10 mg PO HS ALEXANDER Stop: 01/23/18 21:01 Last Admin: 07/24/17 20:33 Dose: 10 mg Bupropion HCl (Wellbutrin Xl) 150 mg PO DAILY A[facility]ER Stop: 01/24/18 09:01 Last Admin: 07/25/17 08:14 Dose: 150 mg Carvedilol (Coreg) 6.25 mg PO BIDWM ALEXANDER PRN Reason: Protocol Stop: 01/24/18 08:01 Last Admin: 07/25/17 08:14 Dose: 6.25 mg Furosemide (Lasix) 40 mg PO DAILY [facility] Stop: 01/24/18 09:01 Last Admin: 07/25/17 08:14 Dose: 40 mg Gabapentin (Neurontin) 600 mg PO TID A[facility]ER Stop: 01/23/18 21:01 Last Admin: 07/25/17 14:16 Dose: 600 mg Heparin Sodium (Porcine) (Heparin) 5,000 unit SQ Q12HCO [facility] Stop: 01/24/18 06:01 Last Admin: 07/25/17 05:11 Dose: 5,000 unit Ibuprofen (Motrin) 800 mg PO Q8HR ALEXANDER PRN Reason: Protocol Stop: 01/24/18 00:01 Last Admin: 07/25/17 08:14 Dose: 800 mg Isosorbide Mononitrate (Imdur) 60 mg PO DAILY [facility] Stop: 01/24/18 09:01 Last Admin: 07/25/17 08:14 Dose: 60 mg Lisinopril (Zestril) 2.5 mg PO DAILY [facility] Stop: 01/24/18 09:01 Last Admin: 07/25/17 08:14 Dose: 2.5 mg Naloxone HCl (Narcan) 0.4 mg IVP Q2MIN PRN PRN Reason: SEE COMMENTS Stop: 01/23/18 19:34 Nitroglycerin (Nitroglycerin) 0.4 mg SL Q5M PRN PRN Reason: Chest Pain Stop: 01/23/18 19:36 Last Admin: 07/25/17 04:36 Dose: 0.4 mg Ondansetron HCl (Zofran Odt) 4 mg PO Q8H PRN PRN Reason: Nausea And Vomiting Last Admin: 07/25/17 14:16 Dose: 4 mg Pantoprazole Sodium (Protonix) 40 mg IVP DAILY [facility] Stop: 01/24/18 13:16 Last Admin: 07/25/17 14:16 Dose: 40 mg Paroxetine HCl (Paxil) 45 mg PO DAILY [facility] PRN Reason: Protocol Stop: 01/24/18 09:01 Last Admin: 07/25/17 08:14 Dose: 45 mg Pharmacy Profile Note (Patient Taking Own Medication) 0 each IH BID [facility]ER Stop: 01/23/18 21:01 Last Admin: 07/25/17 08:15 Dose: Not Given Potassium Chloride (Potassium Chloride) 10 meq PO DAILY [facility] Stop: 01/24/18 09:01 Last Admin: 07/25/17 08:14 Dose: 10 meq Prasugrel (Effient) 10 mg PO DAILY [facility] Stop: 01/24/18 09:01 Last Admin: 07/25/17 08:17 Dose: 10 mg Ranolazine (Ranexa) 1,000 mg PO BID [facility] Stop: 01/23/18 21:01 Last Admin: 07/25/17 08:14 Dose: 1,000 mg Sucralfate (Carafate) 1 gm PO QIDAC [facility] Stop: 01/24/18 16:31 - Imaging and Cardiology Stress Test: report reviewed Echo: report reviewed Cardiac cath: report reviewed - EKG Interpretation EKG results cardiology: personally reviewed Consult Discharge Plan - Plan Referrals: Nickolas Zamora DO [Primary Care Provider] -
[2017-07-25] MEDS: Sucralfate 1 GM TABLET PO SCH ×2 (16:57→22:19)
[2017-07-25] MEDS ORDERED: Ketorolac 30 MG/ML VIAL IVP ONE (21:55)
[2017-07-26] MEDS: Ibuprofen 800 MG TABLET PO SCH ×2 (01:27→08:16)
[2017-07-26] MEDS: *HR* Heparin 5,000 UNIT/ML VIAL SQ SCH ×2 (05:22→17:02)
[2017-07-26] MEDS: (Fluticasone/Vilanterol [Breo Ellipta 100-25 Mcg Inh]) IH SCH ×2 (08:13→21:54)
[2017-07-26] MEDS: Isosorbide MONOnitrate (24 HR) 60 MG TAB.ER.24H PO SCH (08:13)
[2017-07-26] MEDS: Gabapentin 300 MG CAPSULE PO SCH ×3 (08:13→21:54)
[2017-07-26] MEDS: Pantoprazole 40 MG VIAL IVP SCH (08:15)
[2017-07-26] MEDS: Aspirin Enteric Coated 81 MG Tablet PO SCH (08:16)
[2017-07-26] MEDS: BuPROPion XL (24 HR) 150 MG TABLET PO SCH (08:16)
[2017-07-26] MEDS: Ranolazine 500 MG TAB.ER.12H PO SCH ×2 (08:16→21:54)
[2017-07-26] MEDS: Furosemide 40 MG TABLET PO SCH (08:16)
[2017-07-26] MEDS: Sucralfate 1 GM TABLET PO SCH ×4 (08:16→21:54)
[2017-07-26 08:54] LABS: BUN/Creatinine Ratio 20 (6-26); Blood Urea Nitrogen 22 mg/dL (6-20); Calcium 8.8 mg/dL (8.6-10.3); Carbon Dioxide 28 mEq/L (23-29); Chloride 106 mEq/L (98-107); Glucose 100 mg/dL (70-105); Osmolality,Calculated 289 (280-300); Potassium 4.7 mEq/L (3.5-5.1); Sodium 138 mEq/L (136-145); eGFR For African Americans > 60 (> 60); eGFR For Non-African Americans 51 (> 60)
[2017-07-26 09:00] LABS: Basophils % 0.2 %; Eosinophils # 0.1 K/mcL (0.0-0.6); Eosinophils % 1.2 %; Hematocrit 35.3 % (35.3-44.9); Hemoglobin 11.5 g/dL (11.5-15.4); Immature Granulocytes % 0.2 % (0-4); Lymphocytes # 1.5 K/mcL (0.6-4.6); Lymphocytes % 18.4 %; Mean Corpuscular HGB Conc 32.6 g/dL (31.6-35.5); Mean Corpuscular Hemoglobin 29.1 pg (28.0-33.3); Mean Corpuscular Volume 89.4 fL (83.0-100.0); Mean Platelet Volume 11.1 fL (9.4-12.4); Monocytes # 0.5 K/mcL (0.0-1.3); Monocytes % 6.4 %; Neutrophils # 5.9 K/mcL (1.6-8.9); Platelet Count 160 K/mcL (140-400); Red Blood Count 3.95 M/mcL (3.82-4.97); Red Cell Distribution Width 13.3 % (11.5-14.5); Segmented Neutrophils % 73.6 %
--- NOTE | 2017-07-26 13:34 | Cardiology Progress Note ---
Date of Encounter: 07/26/17 Time of Encounter: 08:00 Assessment and Plan (1) Chest pain Current Visit: Yes Status: Acute Patient presents with symptoms concerning for unstable angina. Troponin negative x3. Non-specific ST/T wave changes noted on ECG. Pain free upon exam. Known obstructive CAD. Abnormal stress in 2017 correlated with known coronary anatomy. Last [facility] 2016 s/p PCI to bypass graft. Given ongoing symptoms despite maximal medical therapy, recommend [facility] with possible PCI. Plan for cath on Thursday. A/R/B discussed, patient is agreeable to proceed. NPO after MN on Thursday. Qualifiers: Chest pain type: chest pain due to myocardial ischemia Ischemic chest pain type: unstable angina pectoris Qualified Code(s): I20.0 - Unstable angina (2) CAD (coronary artery disease) Current Visit: No Status: Chronic Continue asa, statin, BB, nitrates, effient, ranexa. Plan as above. Qualifiers: Coronary Disease-Associated Artery/Lesion type: bypass graft [place] vs. transplanted heart: [place] heart Associated angina: with stable angina Qualified Code(s): I25.708 - Atherosclerosis of coronary artery bypass graft(s) , unspecified, with other forms of angina pectoris (3) Hx of CABG Current Visit: No Status: Chronic Discussion w patient/family: The assessment and plan as outlined above was discussed with the patient and/or family members who expressed understanding and agreement. All questions were answered. Thank you for involving us in the care of your patient. Please call with any questions. Subjective Interval history: Uneventful night last PM. Still with some intermittent chest pressure. Objective Vital Signs, Last 4 Hours Temp Pulse Resp BP Pulse Ox 07/26/17 10:45 98.4 F 72 18 100/64 94 General: Conversant, No Apparent Distress HEENT: Atraumatic, Normocephaly, Mucus Membranes Moist Neck: No JVD, Normal carotid pulses Cardiac: Reg Rate and Rhythm, Normal S1 and S2, No Murmur Lungs: Normal Breath Sounds, No Wheeze, Rales, Rhonchi Neuro: Alert and responsive, No focal deficits noted Abdomen: Soft, Non-Tender Skin: No rashes noted on visualized skin Musculoskeletal: No Chest Wall Tenderness Extremities: No Clubbing, No Cyanosis, No Edema, Normal Pulses Results 07/26/17 08:06 07/26/17 08:06 Lab Results 07/26/17 07/26/17 08:06 08:06 WBC 8.0 Hgb 11.5 Hct 35.3 Plt Count 160 Sodium 138 Potassium 4.7 Chloride 106 Carbon Dioxide 28 BUN 22 H Creatinine 1.12 Glucose 100 Calcium 8.8 Consult Discharge Plan - Plan Referrals: Nickolas Zamora DO [Primary Care Provider] -
[2017-07-26] MEDS: Ondansetron ODT 4 MG TAB.RAPDIS PO PRN (14:12)
[2017-07-26] MEDS: Acetaminophen 325 MG TABLET PO PRN (15:25)
[2017-07-26] MEDS ORDERED: 0.9 % Sodium Chloride 1,000 ML IVC SCH (15:30)
--- NOTE | 2017-07-26 15:37 | Event Note ---
Date of Encounter: 07/26/17 Time of Encounter: 15:34 At bedside, Patient informed me that her chest pain has returned. Known hx of severe CAD. CP left sided without radiation, dyspnea, or diaphoresis. Scheduled to have C tomorrow. Vitals obtained, found to be hypotensive, 80/ 46 manual BP. Starting 500ml NS IVF bolus over 1 hour, Stat ECG now, 1 sublingual nitro when BP improves, place on O2. Consider starting Heparin gtt if CP does not improve.
--- NOTE | 2017-07-26 15:37 | Internal Med Progress Note ---
Date of Encounter: 07/26/17 Time of Encounter: 15:34 - Assessment and plan (1) Chest pain Current Visit: Yes Status: Acute Assessment and plan: Clinical presentation concerning for unstable angina Continues to have chest pain today, 6/10 left-sided below left breast stat ECG obtained, no changes from prior ECGs compared to prior studies and this current stay. Pt had similar presentation in may 2017 and medical management was recommended As per cardiology, pt is reported to have significant [place] CAD not amenable to intervention serial tropnin negative x3 cardiology seen in consultation, recommends possible LHC on Thursday Patient with new hypotension today; getting an NS IVF bolus at 500 mL/h 1 Hold anti-HTN medications today, hold Lasix for now Monitor BP closely nitro SL prn chest pain while hypotensive, consider giving if BP improves with saline bolus Remain on telemetry continue home dose of ASA, BB, statin, DWAYNE-inh, Imdur Remain nothing by mouth after midnight for possible cardiac intervention in am Consider heparin drip if chest pain does not improve Qualifiers: Chest pain type: unspecified Qualified Code(s): R07.9 - Chest pain, unspecified (2) Unstable angina Current Visit: Yes Status: Acute Assessment and plan: as listed above (3) Anxiety Current Visit: Yes Status: Chronic Assessment and plan: continue anxiolytics, reporting some anxiety today. (4) CAD (coronary artery disease) Current Visit: No Status: Chronic Assessment and plan: Continue cardiac medications Qualifiers: Coronary Disease-Associated Artery/Lesion type: bypass graft [place] vs. transplanted heart: [place] heart Associated angina: with stable angina Qualified Code(s): I25.708 - Atherosclerosis of coronary artery bypass graft(s) , unspecified, with other forms of angina pectoris (5) Ischemic cardiomyopathy Current Visit: No Status: Chronic Assessment and plan: continue home meds (6) HTN (hypertension) Current Visit: No Status: Chronic Assessment and plan: Hypotensive today Hold anti-HTN medications will closely monitor BP Given a 500 mL bolus of intravenous IVF over the course of one hour 1 Qualifiers: Hypertension type: essential hypertension Qualified Code(s): I10 - Essential (primary) hypertension (7) Obesity (BMI 30-39.9) Current Visit: Yes Status: Chronic Assessment and plan: Discussed lifestyle modifications (8) Hematemesis Current Visit: Yes Status: Acute Assessment and plan: No new hematemesisH&H stable, if hematemesis resumes consider GI consult Start IV push Protonix and Carafate now, closely monitor H&H Qualifiers: Nausea presence: with nausea Qualified Code(s): K92.0 - Hematemesis (9) DVT prophylaxis Current Visit: Yes Status: Acute Assessment and plan: Continue heparin SQ - Time Spent With Patient Total time spent is greater than 50% in coordination of care (as documented) at patient's floor/unit and/or counseling patient: Greater than 35 minutes - Subjective Interval history: Ms. Bartlett is a 52 year old female with PMH of Cardiomyopathy, CHF, CAD, fibromyalgia, HTN, HLD, anxiety, depression, obesity who presented to the ER for evaluation of chest pain. Having chest pain now per my assessment 08/16, left sided without radiation, dyspnea, or diaphoresis. Reporting nausea but no vomiting. - Constitutional Vitals: Temp Pulse Resp BP Pulse Ox 98.4 F 72 18 80/56 94 07/26/17 10:45 07/26/17 10:45 07/26/17 10:45 07/26/17 15:15 07/26/17 10:45 General appearance: Present: mild distress, A&O X 3, no acute distress, obese, answers questions appropriately - Head Head exam: Present: atraumatic, normocephalic - Eye Eye exam: Present: PERRL, conjuntiva pink, sclera anicteric Pupils: Present: PERRL - Neck Neck exam general surgery: Present: supple, trachea midline. Absent: lymphadenopathy - Respiratory Respiratory exam: Present: CTAB. Absent: accessory muscle use, rales, rhonchi, wheezes - Cardiovascular Cardiovascular exam: Present: RRR, +S1, +S2. Absent: diastolic murmur, gallop, rubs, systolic murmur - GI/Abdominal GI/Abdominal exam: Present: normal bowel sounds, soft, no peritoneal signs. Absent: distended, tenderness - Extremities Exam Extremities exam: Present: warm, radial pulses palpable and symmetrical. Absent : calf tenderness, cyanotic, pedal edema - Neurological Exam Neurological exam: Present: CN II-XII intact, oriented X3, no focal deficits. Absent: pronater drift, facial droop, speech deficit - Skin Skin exam: Present: dry, intact Internal Medicine: Result - Labs CBC & Chem 7: 07/26/17 08:06 07/26/17 08:06 Labs: Short CBC 07/26/17 Range/Units 08:06 WBC 8.0 (4.3-11.1) K/mcL Hgb 11.5 (11.5-15.4) g/dL Hct 35.3 (35.3-44.9) % Plt Count 160 (140-400) K/mcL Neutrophils # 5.9 (1.6-8.9) K/mcL BMP 07/26/17 08:06 Sodium 138 Potassium 4.7 Chloride 106 Carbon Dioxide 28 BUN 22 H Creatinine 1.12 Glucose 100 Calcium 8.8 - ABG Interpretation ABG results: PT/INR, D-dimer PT 11.3 Seconds (9.4-12.1) 07/24/17 16:45 Consult Discharge Plan - Plan Referrals: Nickolas Zamora DO [Primary Care Provider] -
[2017-07-26] MEDS ORDERED: 0.9 % Sodium Chloride 500 ML IVC SCH (16:00)
[2017-07-27] MEDS: *HR* Heparin 5,000 UNIT/ML VIAL SQ SCH ×2 (06:21→17:22)
--- NOTE | 2017-07-27 06:35 | Electrocardiograph Report ---
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: TMR : 1965 Requested By: Rolando Tran Order Number: [id number] Reading MD: Hero Olivares Measurements Intervals [place] Rate: 72 P: 20 CO: 141 QRS: -11 QRSD: 98 T: 84 QT: 403 QTc: 427 Interpretive Statements SINUS RHYTHM WITH MARKED RHYTHM IRREGULARITY, POSSIBLE NON-CONDUCTED PAC, SA BLOCK, AV BLOCK, OR SINUS PAUSE POSSIBLE RIGHT VENTRICULAR CONDUCTION DELAY [RSR (QR) IN V1/V2] POSSIBLE ANTERIOR MYOCARDIAL INFARCTION [30 ms Q WAVE IN V3/V4, OR R < 0.2 mV IN V4], OF INDETERMINATE AGE INTERPRETATION BASED ON A DEFAULT AGE OF 40 YEARS Electronically Signed On 07-27-2017 6:34:05 EDT by Hero Olivares
[2017-07-27 06:50] LABS: Basophils % 0.5 %; Eosinophils # 0.2 K/mcL (0.0-0.6); Eosinophils % 4.2 %; Hematocrit 34.3 % (35.3-44.9); Hemoglobin 11.2 g/dL (11.5-15.4); Immature Granulocytes % 0.5 % (0-4); Lymphocytes # 1.6 K/mcL (0.6-4.6); Lymphocytes % 28.5 %; Mean Corpuscular HGB Conc 32.7 g/dL (31.6-35.5); Mean Corpuscular Hemoglobin 29.2 pg (28.0-33.3); Mean Corpuscular Volume 89.3 fL (83.0-100.0); Mean Platelet Volume 11.1 fL (9.4-12.4); Monocytes # 0.4 K/mcL (0.0-1.3); Monocytes % 6.7 %; Neutrophils # 3.3 K/mcL (1.6-8.9); Platelet Count 150 K/mcL (140-400); Red Blood Count 3.84 M/mcL (3.82-4.97); Red Cell Distribution Width 13.6 % (11.5-14.5); Segmented Neutrophils % 59.6 %
[2017-07-27 06:56] LABS: BUN/Creatinine Ratio 23 (6-26); Blood Urea Nitrogen 21 mg/dL (6-20); Calcium 8.6 mg/dL (8.6-10.3); Carbon Dioxide 28 mEq/L (23-29); Chloride 110 mEq/L (98-107); Glucose 90 mg/dL (70-105); Osmolality,Calculated 297 (280-300); Sodium 142 mEq/L (136-145); eGFR For African Americans > 60 (> 60); eGFR For Non-African Americans > 60 (> 60)
[2017-07-27] MEDS: Ranolazine 500 MG TAB.ER.12H PO SCH ×2 (08:33→20:43)
[2017-07-27] MEDS: Isosorbide MONOnitrate (24 HR) 60 MG TAB.ER.24H PO SCH (08:34)
[2017-07-27] MEDS: Aspirin Enteric Coated 81 MG Tablet PO SCH (08:34)
[2017-07-27] MEDS: (Fluticasone/Vilanterol [Breo Ellipta 100-25 Mcg Inh]) IH SCH ×2 (08:34→20:43)
[2017-07-27] MEDS: Pantoprazole 40 MG VIAL IVP SCH (08:34)
[2017-07-27] MEDS: Sucralfate 1 GM TABLET PO SCH ×2 (08:34→12:59)
[2017-07-27] MEDS: BuPROPion XL (24 HR) 150 MG TABLET PO SCH (08:34)
[2017-07-27] MEDS: Gabapentin 300 MG CAPSULE PO SCH ×3 (08:34→20:43)
[2017-07-27] MEDS ORDERED: *HR* Heparin 10,000 UNIT/10 ML VIAL ONE (13:31)
[2017-07-27] MEDS ORDERED: Heparin 1,000 UNITS/500 mL 500 ML ONE (13:31)
[2017-07-27] MEDS ORDERED: 0.9 % Sodium Chloride 1,000 ML ONE ×2 (13:31→13:58)
[2017-07-27] MEDS ORDERED: ISOVUE-370 200 ML INFUS..BTL IV ONE (13:32)
[2017-07-27] MEDS ORDERED: Nitroglycerin 1,000 MCG/10 ML VIAL IV ONE (13:32)
[2017-07-27] MEDS ORDERED: Naloxone 0.4 MG/ML INJ IVP PRN (13:45)
--- NOTE | 2017-07-27 14:03 | Pre-Sedation Evaluation ---
Pre-sedation evaluation - Pre-sedation checklist Date of procedure: 07/27/17 Procedure: [facility] Recent Vitals: Last Vital Signs Temp 98.8 F 07/27/17 11:20 Pulse 64 07/27/17 11:20 Resp 14 07/27/17 11:20 BP 100/64 07/27/17 11:20 Pulse Ox 98 07/27/17 11:20 H&P (including ROS) documented in medical record: Yes Previous reaction to sedatives/anesthetics: No Dietary Status: unknown Dentition: No loose teeth or bridges ASA Classification *see protocol: CLASS II-Mild systemic disease
--- NOTE | 2017-07-27 14:05 | Electrocardiograph Report ---
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
[2017-07-27] MEDS ORDERED: *HR* FentaNYL (PF) 100 MCG/2 ML VIAL ONE (14:06)
[2017-07-27] MEDS ORDERED: *HR* Midazolam HCl 2 MG/2 ML VIAL ONE (14:06)
[2017-07-27] MEDS ORDERED: Ondansetron 4 MG/2 ML VIAL ONE (14:16)
--- NOTE | 2017-07-27 14:44 | Electrocardiograph Report ---
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
--- NOTE | 2017-07-27 15:08 | Invasive Diagnostic Lab Proc ---
Name: Mandi Bartlett Date of Study: 07/27/2017 Date: 1965 Ht: 59.8in Medical Record#: [id number] Age: 52 Wt: 194.45lb Gender: Female BSA: 1.84 Order #: [id number] BMI: 38.23 Physicians Procedure Physician: Gregory Paul MD Referring MD: Referring MD: Staff Name Position Time In Ani Resendiz RT (R) Scrub 01:59 PM Maria Luisa Everett RT (R) Monitor 01:59 PM Jurgen Jimenez RN Precipitation Equipment Tender 01:59 PM Indications Indication Unstable Angina Procedures Performed Procedure L HRT ART/GRFT ANGIO Pre-Procedure Checklist Informed consent is complete signed and on chart. H&P is on chart. ID band is on and ID verified with patient. Patient NPO for procedure The procedure was described for the patient and questions were answered. ECG is on chart. Plan of Care Patient will tolerate the procedure without complications. Adequate level of comfort will be maintained. Hemodynamics will remain stable Patient will recover from procedure without complications. Respiratory function will be maintained. Cardiac rhythm will remain stable. Patient temperature will be maintained. Patient and/or family have verbalized understanding of the procedure. Patient Education Chief Complaint/Reason for Test: Cardiac Cath Developmental Category: Adult (18-64 years) Developmentally Appropriate for Age: Yes Learning Barriers: None Education Needs: Procedure Education Method: Verbal Information Taught: Cardiac Cath Educational Evaluation: Able to repeat information Intravenous Access Time IV Size Location DC'd Fluid/Drip Rate Units RN 02:07 PM 18g 1 03/12" Patent On Arrival Lt Hand 0.9NaCl 25 ml/hr Jurgen Jimenez RN Allergies adhesive tape Oxycodone acetaminophen Penicillin Cephalexin Erythromycin latex Penicillins azithromycin Vital Signs Time BP (mmHg) HR (bpm) O2 Sat. RR (bpm) LOC 97 / 67 64 99 % 16 02:07 PM / % 5 = Fully awake and oriented or at pre-proc level 02:07 PM / % 4 = Oriented but drowsy 02:24 PM / % 4 = Oriented but drowsy 02:06 PM 123 / 100 71 99 % 02:10 PM 129 / 77 65 100 % 02:15 PM 124 / 78 67 100 % 02:20 PM 122 / 43 64 97 % 02:25 PM 118 / 73 61 100 % 02:30 PM 123 / 70 62 100 % 02:35 PM 117 / 73 62 99 % 02:40 PM 123 / 66 64 96 % 02:45 PM 119 / 68 61 100 % Procedural Medications Time Medication Dose Units Method Given By 02:07 PM Oxygen 2 L/min nasal cannula Jurgen Jimenez RN 02:07 PM Versed 1 mg Intravenous Jurgen Jimenez RN 02:07 PM Fentanyl 50 mcg Intravenous Jurgen Jimenez RN 02:17 PM Zofran 4 mg Intravenous Jurgen Jimenez RN 02:29 PM Lidocaine 2% 19 ml Subcutaneous Gregory Paul MD 02:36 PM Heparin 1000 mg Intravenous Jurgen Jimenez RN ASA Classification: CLASS II- Mild systemic disease (i.e. well-controlled diabetes, hypertension, asthma, cigarette smoking) Boris Score Preprocedure Postprocedure Activity 2- Moves 4 extremities sustained head lift Activity 2- Moves 4 extremities sustained head lift Circulation 2- SBP +/= 20 points of pre-anesthetic level Circulation 2- SBP +/= 20 points of pre-anesthetic level Consciousness 2- Awake and alert oriented x 3 Consciousness 2- Awake and alert oriented x 3 O2 Saturation 2- Able to maintain O2 satruation of 92% on room air O2 Saturation 2- Able to maintain O2 satruation of 92% on room air Respiratory 2- Able to deep breathe and cough well Respiratory 2- Able to deep breathe and cough well Total Score 10 Total Score 10 Contrast Agent: Isovue Diagnostic Contrast: 71 ml Total Contrast: 71 ml Fluoro Dose: 456 mGy Procedure Log Time Note Enter By 01:59 PM 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 02:00 PM Procedure start 14:00 [email or web address] 02:02 PM CathStat 02:05 PM Vitals capture started with the following parameters, Patient=Adult, Interval=5 min, Initial Reyppxcl=793 mmHg, Deflation Rate=5 mmHg, Cuff placed on Right Arm 02:05 PM Recorded ECG: HR=71 Condition=Condition 1 02:06 PM HR=71 bpm, KAHA=913/100 mmhg, SpO2=99.0 % 02:07 PM Time: 14:07 Oxygen on at 2 L/min per nasal cannula by Jurgen Jimenez RN twced 02:07 PM Time: 14:07 Patient comfortable and pain free: Yes twilson 02: PM Time: 14:07LOC: 5 = Fully awake and oriented or at pre-proc level twilson : PM Time: 14: Versed 1 mg Intravenous Given by Jurgen Jimenez RN twced 02:08 PM Time: 14:07 Fentanyl 50 mcg Intravenous Given by Jurgen Jimenez RN twced 02:09 PM Hair removed from procedure site in procedure lab using clippers. Bilateral groin prepped with Chloraprep by Hazel Suresh (R), then patient was draped. Skin intact. twilson 02:09 PM Clinical Presentation: Unstable angina twilson 02:10 PM NIBP STAT measurement started. 02:10 PM HR=65 bpm, OBJN=326/77 mmhg, CcG1=343.0 % 02:15 PM HR=67 bpm, IMMN=317/78 mmhg, YnR8=559.0 % 02:17 PM Time: 14:17 Zofran 4 mg Intravenous Given by Jurgen Jimenez RN twilson 02:20 PM HR=64 bpm, SSIN=130/43 mmhg, SpO2=97.0 % 02:24 PM Time: 14:07LOC: 4 = Oriented but drowsy twilson 02:24 PM Time: 14:07 Patient comfortable and pain free: Yes twilson 02:24 PM ASA Class CLASS II- Mild systemic disease (i.e. well-controlled diabetes, hypertension, asthma, cigarette smoking) twilson 02:25 PM Time out performed according to hospital policy twilson 02:25 PM HR=61 bpm, HPIX=781/73 mmhg, WtU6=980.0 % 02: PM Time: 14:29 19 ml Lidocaine 2% to right groin Subcutaneous Given by Gregory Paul MD twilson 02:29 PM Micro-Introducer Kit utilized for sheath placement twilson 02:29 PM 5ml contrast hand injection right groin. twilson 02:29 PM Access obtained by percutaneous puncture. 6Fr 10cm Terumo Roscoe sheath placed in right Femoral artery. [id number] twilson 02:30 PM 5Fr FR 4 catheter inserted over the wire DNC twilson 02:30 PM HR=62 bpm, TVJT=194/70 mmhg, TiW5=575.0 % 02:30 PM Wire removed twilson 02:31 PM Right Coronary, Right Posterior Descending Arteries with Right Posterolateral and Acute Marginal branches with 100 % stenosis. If graft is supplying this area, 0 % stenosis twilson 02:31 PM SVG to the RPDA angio performed in multiple views. twilson 02:31 PM Recorded Pressure: Ao, HR=64, Condition=Condition 1 (Aorta) Ao 113/80/96 02:34 PM Recorded Pressure: Ao, HR=64, Condition=Condition 1 (Aorta) Ao 115/85/99 02:34 PM Left MARGIE to the LAD angio performed in multiple views. twilson 02:35 PM Wire reinserted. twilson 02:35 PM HR=62 bpm, BZPN=764/73 mmhg, SpO2=99.0 % 02:35 PM Catheter removed twilson 02:36 PM 5Fr FL 4 catheter inserted over the wire DNC twilson 02:36 PM Time: 14:36 Heparin 1000 mg Intravenous Given by Jurgen Jimenez RN twilson 02:37 PM LCA angiography performed in multiple views. twilson 02:37 PM Recorded Pressure: Ao, HR=63, Condition=Condition 1 (Aorta) Ao 114/82/97 02:37 PM Wire reinserted. twilson 02:37 PM Catheter removed twilson 02:37 PM 5Fr Pigtail catheter inserted over the wire DNC twilson 02:38 PM Catheter selectively placed in left ventricle twilson 02:38 PM Wire removed twilson 02:39 PM Recorded Pressure: LV, HR=66, Condition=Condition 1 (Left Ventricle) LV 124/17/23 02:39 PM Bolus angiogram of left Ventricle complete: 10 ml/sec for a total of 20 mls twilson :39 PM Time: 14:24LOC: 4 = Oriented but drowsy twilson 02:39 PM Time: 14:24 Patient comfortable and pain free: Yes twilson 02:40 PM Recorded Pressure: LV, Ao, HR=64, Condition=Condition 1 (Left Ventricle) LV 132/3/31, (Aorta) Ao 132/71/96 02:40 PM HR=64 bpm, KFID=932/66 mmhg, SpO2=96.0 % 02:41 PM Wire reinserted. twilson 02:41 PM Catheter removed twilson 02:41 PM Wire removed twilson 02:41 PM Coronary Dominance: right twilson 02:42 PM Procedure completed at 14:42 twilson 02:42 PM Did you address LAUREN flow and Dominance? Yes twilson 02:43 PM Sign out completed: Radiation Dose 456.15 mGy Fluoro Time: 4.0 Isovue 370 - 200ml contrast 71 ml given by Gregory Paul MD. Complications: NoneCardiac Rehab Consult needed: NoConfirmed administered medications: Yes twilson 02:43 PM Isovue 370 - 200ml,1 Bottle(s) used. twilson 02:43 PM Arterial sheath pulled, Angio-seal closure device used and was Successful [id number] S/N. twilson 02:43 PM Estimated Blood Loss: minimal twilson 02:43 PM Post ECG NSR twilson 02:44 PM Post Blood Pressure 123/66 twilson 02:44 PM 14:44 Post Pulses Bilateral DP & PT 1+ twilson 02:44 PM No family present at this time. twilson 02:45 PM HR=61 bpm, KWSO=057/68 mmhg, CpF7=558.0 % 02:46 PM Information taught Cardiac Cath and Angioseal twilson 02:46 PM Education needs Procedure, Plan of Care, and Responsibilities of Patient in Care twilson 02:46 PM Learning barriers :None twilson 02:46 PM Education Methods Verbal twilson 02:46 PM Education evaluation Able to repeat information twilson 02:46 PM Site status No bleeding/hematoma - Rt Groin as reported by Ani Resendiz RT (R) at 14:46 twilson 02:46 PM Opsite applied twilson 02:46 PM Plavix, Effient or Brilinta given No twilson 02:46 PM Delay to floor No twilson 02:47 PM Lesion found in Mid RCA. Pre Stenosis: 100 Pre LAUREN Flow: twilson 02:47 PM Lesion found in Proximal LAD. Pre Stenosis: 100 Pre LAUREN Flow: twilson 02:47 PM Proximal Left Anterior Descending Coronary Artery with 100% stenosis. If graft is supplying this territory, 0 % stenosis. twilson 02:47 PM Lesion found in Proximal Circumflex. Pre Stenosis: 80 Pre LAUREN Flow: twilson 02:47 PM Lesion found in Distal Circumflex. Pre Stenosis: 100 Pre LAUREN Flow: twilson 02:47 PM Circumflex, Obtuse Marginal, Left Posterior Descending, and Left Posterolateral Coronary Arteries with 100 % stenosis. If graft is supplying this area, 0 % stenosis twilson 02:57 PM Report given to RN Pt taken to 3B Room #65. 14:56 twilson 02:57 PM Patient out of room: 14:57 twilson Complications Complication None Hemodynamics Pressures Site Systolic/A Wave Diastolic/V Wave Mean AO 113 80 96 AO 115 85 99 AO 114 82 97 LV 124 17 23 LV 132 3 31 AO 132 71 96 Post Procedure Information Blood Pressure: 123/66 mmHg Rhythm: NSR Post procedural instructions were given Closure Device Time Device Success/Fail 07/27/2017 2:40:00 PM Angio-Seal VIP Successful Site Checks Time Location Status Staff Sheath In? Note 02:46 PM Rt Groin No bleeding/hematoma Ani Resendiz RT (R) Pulses Time Site Pre-Procedure Post-Procedure Note 07/27/2017 2:07:00 PM Bilateral DP & PT 1+ 07/27/2017 2:07:00 PM Bilateral radial 2+ 2:44:00 PM Bilateral DP & PT 1+ Updated by Maria Luisa Everett RT (R) on 07/27/2017 3:00:33 PM electronically signed on 07/27/2017 3:01:24 PM with status of Final
--- NOTE | 2017-07-27 15:42 | Internal Med Progress Note ---
Date of Encounter: 07/27/17 Time of Encounter: 15:40 - Assessment and plan (1) Chest pain Current Visit: Yes Status: Acute Assessment and plan: Clinical presentation concerning for unstable angina Nonspecific ST/T-wave changes noted on ECG, troponins negative 3 History of severe CAD, S/P CABG Continues to have chest pain today Last [facility] 2016 S/P PCI to bypass graft, abnormal stress in 2017 correlated with known CAD Underwent [facility] this afternoon-known severe three-vessel disease, optimization of medical therapy and aggressive risk factor modification Remain on telemetry continue home dose of ASA, BB, statin, DWAYNE-inh, Imdur Patient likely able to discharge tomorrow pending recommendations of cardiology Qualifiers: Chest pain type: unspecified Qualified Code(s): R07.9 - Chest pain, unspecified (2) Unstable angina Current Visit: Yes Status: Acute Assessment and plan: as listed above (3) Anxiety Current Visit: Yes Status: Chronic Assessment and plan: continue anxiolytics, anxiety is improved today. (4) CAD (coronary artery disease) Current Visit: No Status: Chronic Assessment and plan: Continue current cardiac medications. Cardiology consult-defer to cardiology for medication adjustments Qualifiers: Coronary Disease-Associated Artery/Lesion type: bypass graft [place] vs. transplanted heart: [place] heart Associated angina: with stable angina Qualified Code(s): I25.708 - Atherosclerosis of coronary artery bypass graft(s) , unspecified, with other forms of angina pectoris (5) Ischemic cardiomyopathy Current Visit: No Status: Chronic Assessment and plan: continue home meds Cardiology following TTE 04/27/17 LV EF 40-45% Mild global LV systolic dysfunction Normal LV chamber size and LV wall thickness Normal right ventricular structure and function (6) HTN (hypertension) Current Visit: No Status: Chronic Assessment and plan: History of HTN Hypotension continues today but improving Hold anti-HTN medications will closely monitor BP Qualifiers: Hypertension type: essential hypertension Qualified Code(s): I10 - Essential (primary) hypertension (7) Obesity (BMI 30-39.9) Current Visit: Yes Status: Chronic Assessment and plan: Discussed lifestyle modifications (8) Hematemesis Current Visit: Yes Status: Resolved Qualifiers: Nausea presence: with nausea Qualified Code(s): K92.0 - Hematemesis (9) DVT prophylaxis Current Visit: Yes Status: Acute - Time Spent With Patient Total time spent is greater than 50% in coordination of care (as documented) at patient's floor/unit and/or counseling patient: 25 - 35 minutes - Subjective Interval history: Ms. Bartlett is a 52 year old female with PMH of Cardiomyopathy, CHF, CAD, fibromyalgia, HTN, HLD, anxiety, depression, obesity who presented to the ER for evaluation of chest pain. Continued to have chest pain this morning it is left sided without radiation, dyspnea, or diaphoresis. Known history of severe CAD. - Constitutional Vitals: Temp Pulse Resp BP Pulse Ox 98.9 F 61 16 114/74 95 07/27/17 15:15 07/27/17 15:15 07/27/17 15:15 07/27/17 15:15 07/27/17 15:15 General appearance: Present: mild distress, A&O X 3, no acute distress, obese, answers questions appropriately - Head Head exam: Present: atraumatic, normocephalic - Eye Eye exam: Present: PERRL, conjuntiva pink, sclera anicteric Pupils: Present: PERRL - Neck Neck exam general surgery: Present: supple, trachea midline. Absent: lymphadenopathy - Respiratory Respiratory exam: Present: CTAB. Absent: accessory muscle use, rales, rhonchi, wheezes - Cardiovascular Cardiovascular exam: Present: RRR, +S1, +S2. Absent: diastolic murmur, gallop, rubs, systolic murmur - GI/Abdominal GI/Abdominal exam: Present: normal bowel sounds, soft, no peritoneal signs. Absent: distended, tenderness - Extremities Exam Extremities exam: Present: warm, radial pulses palpable and symmetrical. Absent : calf tenderness, cyanotic, pedal edema - Neurological Exam Neurological exam: Present: CN II-XII intact, oriented X3, no focal deficits. Absent: pronater drift, facial droop, speech deficit - Skin Skin exam: Present: dry, intact Internal Medicine: Result - Labs CBC & Chem 7: 07/27/17 06:26 07/27/17 06:26 - ABG Interpretation ABG results: PT/INR, D-dimer PT 11.3 Seconds (9.4-12.1) 07/24/17 16:45 Consult Discharge Plan - Plan Referrals: Nickolas Zamora DO [Primary Care Provider] - 07/28/17 12:30 pm
[2017-07-27] MEDS: Acetaminophen 325 MG TABLET PO PRN ×2 (15:46→20:42)
[2017-07-27] MEDS: Ondansetron ODT 4 MG TAB.RAPDIS PO PRN (21:58)
[2017-07-28] MEDS: *HR* Heparin 5,000 UNIT/ML VIAL SQ SCH ×2 (06:21→16:50)
[2017-07-28 06:28] LABS: Basophils % 0.5 %; Eosinophils # 0.2 K/mcL (0.0-0.6); Eosinophils % 4.3 %; Hemoglobin 10.8 g/dL (11.5-15.4); Immature Granulocytes % 0.2 % (0-4); Lymphocytes # 1.4 K/mcL (0.6-4.6); Lymphocytes % 32.6 %; Mean Corpuscular HGB Conc 32.7 g/dL (31.6-35.5); Mean Corpuscular Volume 88.5 fL (83.0-100.0); Mean Platelet Volume 10.9 fL (9.4-12.4); Monocytes # 0.3 K/mcL (0.0-1.3); Monocytes % 7.9 %; Neutrophils # 2.3 K/mcL (1.6-8.9); Platelet Count 147 K/mcL (140-400); Red Blood Count 3.73 M/mcL (3.82-4.97); Red Cell Distribution Width 13.4 % (11.5-14.5); Segmented Neutrophils % 54.5 %
[2017-07-28 06:51] LABS: BUN/Creatinine Ratio 23 (6-26); Blood Urea Nitrogen 15 mg/dL (6-20); Calcium 8.6 mg/dL (8.6-10.3); Carbon Dioxide 28 mEq/L (23-29); Chloride 107 mEq/L (98-107); Glucose 93 mg/dL (70-105); Osmolality,Calculated 291 (280-300); Sodium 140 mEq/L (136-145); eGFR For African Americans > 60 (> 60); eGFR For Non-African Americans > 60 (> 60)
[2017-07-28] MEDS: Aspirin Enteric Coated 81 MG Tablet PO SCH (09:06)
[2017-07-28] MEDS: Isosorbide MONOnitrate (24 HR) 60 MG TAB.ER.24H PO SCH (09:07)
[2017-07-28] MEDS: Gabapentin 300 MG CAPSULE PO SCH ×3 (09:07→21:30)
[2017-07-28] MEDS: (Fluticasone/Vilanterol [Breo Ellipta 100-25 Mcg Inh]) IH SCH (09:08)
[2017-07-28] MEDS: BuPROPion XL (24 HR) 150 MG TABLET PO SCH (09:09)
[2017-07-28] MEDS: Ranolazine 500 MG TAB.ER.12H PO SCH ×2 (09:09→21:30)
[2017-07-28] MEDS: Acetaminophen 325 MG TABLET PO PRN ×2 (10:11→23:34)
--- NOTE | 2017-07-28 11:25 | Cardiology Progress Note ---
Date of Encounter: 07/28/17 Time of Encounter: 11:00 Assessment and Plan (1) Chest pain Current Visit: Yes Status: Acute Patient presents with symptoms concerning for unstable angina. Troponin negative x3. Non-specific ST/T wave changes noted on ECG. Pain free upon exam. [place] 07/28/17: s/p 2 of 3 patent bypass grafts--SVG to 1st OM and 2nd OM occluded. Medical management recommended. EF 40%. On maximal medical therapy--bb, asa, statin, ranexa, ACEi, and nitrates. No further testing, Cardiology will sign-off. Will coordinate outpt follow-up. Qualifiers: Chest pain type: chest pain due to myocardial ischemia Ischemic chest pain type: unstable angina pectoris Qualified Code(s): I20.0 - Unstable angina (2) CAD (coronary artery disease) Current Visit: No Status: Chronic Continue asa, statin, BB, nitrates, effient, ranexa. Plan as above. Qualifiers: Coronary Disease-Associated Artery/Lesion type: bypass graft [place] vs. transplanted heart: [place] heart Associated angina: with stable angina Qualified Code(s): I25.708 - Atherosclerosis of coronary artery bypass graft(s) , unspecified, with other forms of angina pectoris (3) Ischemic cardiomyopathy Current Visit: No Status: Chronic EF 40%, unchanged. Euvolemic upon exam. On BB, ACEi, lasix. Plan as above, CHF teaching discussed. Na/fluid restricted diet, daily weights. Discussion w patient/family: The assessment and plan as outlined above was discussed with the patient and/or family members who expressed understanding and agreement. All questions were answered. Thank you for involving us in the care of your patient. Please call with any questions. The patient will be discussed and reviewed with Dr. Flores; changes to be made accordingly. Subjective Principal diagnosis: Unstable angina Interval history: Seen and examined. No chest pain reported this morning upon exam. Reports "fibromyalgia" pain. Reports mild tenderness at cath site. Objective General: Conversant, No Apparent Distress HEENT: Atraumatic, Normocephaly, Mucus Membranes Moist Neck: No JVD Cardiac: Reg Rate and Rhythm, Normal S1 and S2 Lungs: Normal Breath Sounds Neuro: Alert and responsive Abdomen: Soft Skin: No rashes noted on visualized skin Musculoskeletal: No Chest Wall Tenderness Extremities: No Edema, Normal Pulses, Other (right groin cath site: no bruising , hematoma present. Mildly tender. ) Results 07/28/17 05:58 07/28/17 05:58 Lab Results 07/28/17 07/28/17 05:58 05:58 WBC 4.2 L Hgb 10.8 L Hct 33.0 L Plt Count 147 Sodium 140 Potassium 4.0 Chloride 107 Carbon Dioxide 28 BUN 15 Creatinine 0.65 Glucose 93 Calcium 8.6 Active Medications Acetaminophen (Tylenol) 650 mg PO Q6HR PRN PRN Reason: Pain Stop: 01/25/18 14:23 Last Admin: 07/28/17 10:11 Dose: 650 mg Albuterol Sulfate (Albuterol Inhaler) 2 puff IH Q4H PRN PRN Reason: Shortness Of Breath Stop: 01/23/18 19:36 Albuterol/Ipratropium (Duoneb) 3 ml IH Q4HR PRN PRN Reason: Shortness Of Breath/Wheezing Stop: 01/23/18 19:36 Alprazolam (Xanax) 1 mg PO TID PRN; Protocol PRN Reason: Anxiety Stop: 01/23/18 19:36 Last Admin: 07/27/17 20:42 Dose: 1 mg Aspirin (Aspirin Ec) 81 mg PO DAILY ALEXANDER Stop: 01/24/18 09:01 Last Admin: 07/28/17 09:06 Dose: 81 mg Atorvastatin Calcium (Lipitor) 10 mg PO HS [facility] Stop: 01/23/18 21:01 Last Admin: 07/27/17 20:43 Dose: 10 mg Bupropion HCl (Wellbutrin Xl) 150 mg PO DAILY ALEXANDER Stop: 01/24/18 09:01 Last Admin: 07/28/17 09:09 Dose: 150 mg Carvedilol (Coreg) 6.25 mg PO BIDWM ALEXANDER PRN Reason: Protocol Stop: 01/24/18 08:01 Last Admin: 07/28/17 09:06 Dose: 6.25 mg Furosemide (Lasix) 40 mg PO DAILY ALEXANDER Stop: 01/24/18 09:01 Last Admin: 07/26/17 08:16 Dose: 40 mg Gabapentin (Neurontin) 600 mg PO TID ALEXANDER Stop: 01/23/18 21:01 Last Admin: 07/28/17 09:07 Dose: 600 mg Heparin Sodium (Porcine) (Heparin) 5,000 unit SQ Q12HCO [facility] Stop: 01/24/18 06:01 Last Admin: 07/28/17 06:21 Dose: 5,000 unit Isosorbide Mononitrate (Imdur) 60 mg PO DAILY [facility] Stop: 01/24/18 09:01 Last Admin: 07/28/17 09:07 Dose: 60 mg Lisinopril (Zestril) 2.5 mg PO DAILY [facility] Stop: 01/24/18 09:01 Last Admin: 07/26/17 08:13 Dose: Not Given Naloxone HCl (Narcan) 0.4 mg IVP Q2MIN PRN PRN Reason: SEE COMMENTS Stop: 01/23/18 19:34 Naloxone HCl (Narcan) 0.4 mg IVP Q2MIN PRN PRN Reason: SEE COMMENTS Stop: 01/26/18 13:46 Nitroglycerin (Nitroglycerin) 0.4 mg SL Q5M PRN PRN Reason: Chest Pain Stop: 01/23/18 19:36 Last Admin: 07/25/17 04:36 Dose: 0.4 mg Ondansetron HCl (Zofran Odt) 4 mg PO Q8H PRN PRN Reason: Nausea And Vomiting Last Admin: 07/27/17 21:58 Dose: 4 mg Paroxetine HCl (Paxil) 45 mg PO DAILY [facility] PRN Reason: Protocol Stop: 01/24/18 09:01 Last Admin: 07/28/17 09:08 Dose: 45 mg Pharmacy Profile Note (Patient Taking Own Medication) 0 each IH BID [facility] Stop: 01/23/18 21:01 Last Admin: 07/28/17 09:08 Dose: Not Given Potassium Chloride (Potassium Chloride) 10 meq PO DAILY [facility] Stop: 01/24/18 09:01 Last Admin: 07/28/17 09:09 Dose: 10 meq Prasugrel (Effient) 10 mg PO DAILY [facility] Stop: 01/24/18 09:01 Last Admin: 07/28/17 09:18 Dose: 10 mg Ranolazine (Ranexa) 1,000 mg PO BID [facility] Stop: 01/23/18 21:01 Last Admin: 07/28/17 09:09 Dose: 1,000 mg - Imaging and Cardiology Echo: report reviewed Cardiac cath: report reviewed Other Results: 12 hour tele: avg HR=63 SR. No events reported. - EKG Interpretation EKG results cardiology: personally reviewed Consult Discharge Plan - Plan Referrals: Nickolas Zamora DO [Primary Care Provider] - 07/28/17 12:30 pm
[2017-07-28] MEDS: Ondansetron ODT 4 MG TAB.RAPDIS PO PRN ×2 (13:39→21:30)
[2017-07-28] MEDS ORDERED: 0.9 % Sodium Chloride 500 ML IVC ONE (15:58)
--- NOTE | 2017-07-28 16:02 | Internal Med Progress Note ---
Date of Encounter: 07/28/17 Time of Encounter: 12:15 - Assessment and plan (1) Anxiety Current Visit: Yes Status: Chronic Assessment and plan: Chronic. Continue home medications after discharge (Xanax), will hold dose tonight due to dizziness and hypotension. (2) CAD (coronary artery disease) Current Visit: Yes Status: Chronic Assessment and plan: Pt denies chest pain, reports dizziness x 1 month, reports nausea today. Patient has been evaluated by cardiology, [facility] yesterday showed 2 of 3 patent bypass grafts. Medical management recommended. EF is 40%. Continue beta rolando, aspirin, statin, adnexa, DWAYNE inhibitor is, and nitrates. Continue telemetry Qualifiers: Coronary Disease-Associated Artery/Lesion type: bypass graft [place] vs. transplanted heart: [place] heart Associated angina: with stable angina Qualified Code(s): I25.708 - Atherosclerosis of coronary artery bypass graft(s) , unspecified, with other forms of angina pectoris (3) Ischemic cardiomyopathy Current Visit: Yes Status: Chronic Assessment and plan: Chronic. EF is 40% unchanged from prior. Plan as above. Continue sodium and fluid restrictions, daily weights and intake and output (4) HTN (hypertension) Current Visit: Yes Status: Chronic Assessment and plan: Chronic. Pt has had hypotension today, dizziness which could be related. Xanax, Lasix, and Lisinopril held, continue to hold and monitor blood pressure. Pt will be given 500 ml bolus. VS q 4h. Qualifiers: Hypertension type: essential hypertension Qualified Code(s): I10 - Essential (primary) hypertension (5) Chest pain Current Visit: Yes Status: Acute Assessment and plan: Pt denies chest pain today. Troponins negative. EKG with non-specific ST changes. Pt reports dizziness and nausea for 1 month, denies chest pain. [facility] 07/27/17- noted severe three-vessel disease, moderate LV dysfunction with an EF of 40%, status post CABG to 3 patent bypass grafts. Recommended optimal medical therapy and aggressive risk factor modification. Continue beta rolando, aspirin, statin, Ranexa, DWAYNE inhibitor, and nitrates after discharge. Currently some of his medications, as well as Xanax, are being held for hypotension. Continue telemetry Qualifiers: Chest pain type: unspecified Qualified Code(s): R07.9 - Chest pain, unspecified (6) Unstable angina Current Visit: Yes Status: Acute Assessment and plan: Plan as above. (7) Obesity (BMI 30-39.9) Current Visit: Yes Status: Chronic Assessment and plan: Chronic. Continue to encourage lifestyle modifications. (8) Hematemesis Current Visit: Yes Status: Resolved Assessment and plan: Resolved. Qualifiers: Nausea presence: with nausea Qualified Code(s): K92.0 - Hematemesis (9) DVT prophylaxis Current Visit: Yes Status: Acute Assessment and plan: Continue heparin SQ BID - Time Spent With Patient Total time spent is greater than 50% in coordination of care (as documented) at patient's floor/unit and/or counseling patient: less than 15 minutes - Subjective Interval history: Patient was seen and assessed at bedside at 12:15 PM. Patient is alert, awake. She reports dizziness times one month with associated nausea. Today when I enter the room she tells me that she is feeling dizzy. I did ambulate in the hallway with her, she did have to hold onto the railing on the wall. Patient was given meclizine 25 mg by mouth once, nurse reports minimal relief from symptoms. Unclear etiology of dizziness at this time, will keep patient overnight to monitor vitals, and patient condition. - Constitutional Vitals: Temp Pulse Resp BP Pulse Ox 98.9 F 61 14 96/56 95 07/28/17 15:09 07/28/17 15:09 07/28/17 15:09 07/28/17 15:09 07/28/17 15:09 General appearance: Present: cooperative, mild distress, A&O X 3, pleasant, no acute distress, obese, answers questions appropriately - Head Head exam: Present: atraumatic, normal inspection, normocephalic - Eye Eye exam: Present: normal appearance, conjuntiva pink, sclera anicteric - Neck Neck exam general surgery: Present: normal inspection, supple, trachea midline. Absent: lymphadenopathy, tenderness - Expanded Neck Exam Neck exam: Absent: carotid bruit, tenderness, thyroid mass - Respiratory Respiratory exam: Present: CTAB. Absent: accessory muscle use, rales, respiratory distress, rhonchi, wheezes - Cardiovascular Cardiovascular exam: Present: RRR, +S1, +S2. Absent: diastolic murmur, gallop, rubs, systolic murmur - GI/Abdominal GI/Abdominal exam: Present: normal bowel sounds, soft, no peritoneal signs. Absent: distended, hepatomegaly, tenderness - Extremities Exam Extremities exam: Present: normal capillary refill, normal inspection, warm, radial pulses palpable and symmetrical. Absent: calf tenderness, cyanotic, pedal edema, tenderness - Neurological Exam Neurological exam: Present: altered, CN II-XII intact, oriented X3, no focal deficits. Absent: facial droop, speech deficit - Skin Skin exam: Present: dry, intact, normal color, warm. Absent: rash Internal Medicine: Result - Labs CBC & Chem 7: 07/28/17 05:58 07/28/17 05:58 Labs: Short CBC 07/28/17 Range/Units 05:58 WBC 4.2 L (4.3-11.1) K/mcL Hgb 10.8 L (11.5-15.4) g/dL Hct 33.0 L (35.3-44.9) % Plt Count 147 (140-400) K/mcL Neutrophils # 2.3 (1.6-8.9) K/mcL BMP 07/28/17 05:58 Sodium 140 Potassium 4.0 Chloride 107 Carbon Dioxide 28 BUN 15 Creatinine 0.65 Glucose 93 Calcium 8.6 - ABG Interpretation ABG results: PT/INR, D-dimer PT 11.3 Seconds (9.4-12.1) 07/24/17 16:45 Consult Discharge Plan - Plan Referrals: Nickolas Zamora DO [Primary Care Provider] - 08/05/17 11:00 am
[2017-07-29] MEDS: *HR* Heparin 5,000 UNIT/ML VIAL SQ SCH (06:32)
[2017-07-29 07:17] VITALS: BP 123/78
[2017-07-29 07:59] LABS: BUN/Creatinine Ratio 22 (6-26); Blood Urea Nitrogen 14 mg/dL (6-20); Calcium 8.7 mg/dL (8.6-10.3); Carbon Dioxide 28 mEq/L (23-29); Chloride 108 mEq/L (98-107); Glucose 86 mg/dL (70-105); Osmolality,Calculated 292 (280-300); Potassium 3.6 mEq/L (3.5-5.1); Sodium 141 mEq/L (136-145); eGFR For African Americans > 60 (> 60); eGFR For Non-African Americans > 60 (> 60)
[2017-07-29 08:24] LABS: Basophils % 0.4 %; Eosinophils # 0.2 K/mcL (0.0-0.6); Eosinophils % 4.1 %; Hematocrit 33.6 % (35.3-44.9); Hemoglobin 11.3 g/dL (11.5-15.4); Immature Granulocytes % 0.2 % (0-4); Lymphocytes # 1.5 K/mcL (0.6-4.6); Lymphocytes % 32.8 %; Mean Corpuscular HGB Conc 33.6 g/dL (31.6-35.5); Mean Corpuscular Hemoglobin 29.8 pg (28.0-33.3); Mean Corpuscular Volume 88.7 fL (83.0-100.0); Mean Platelet Volume 11.5 fL (9.4-12.4); Monocytes # 0.3 K/mcL (0.0-1.3); Monocytes % 6.9 %; Neutrophils # 2.6 K/mcL (1.6-8.9); Platelet Count 153 K/mcL (140-400); Red Blood Count 3.79 M/mcL (3.82-4.97); Red Cell Distribution Width 13.2 % (11.5-14.5); Segmented Neutrophils % 55.6 %
[2017-07-29] MEDS: Aspirin Enteric Coated 81 MG Tablet PO SCH (09:41)
[2017-07-29] MEDS: BuPROPion XL (24 HR) 150 MG TABLET PO SCH (09:42)
[2017-07-29] MEDS: Isosorbide MONOnitrate (24 HR) 60 MG TAB.ER.24H PO SCH (09:42)
[2017-07-29] MEDS: Gabapentin 300 MG CAPSULE PO SCH (09:42)
[2017-07-29] MEDS: Ranolazine 500 MG TAB.ER.12H PO SCH (09:43)
--- NOTE | 2017-07-29 10:40 | Discharge Summary ---
- NOTES TO OUTPATIENT PROVIDER Notes to Outpatient Provider: Pt was admitted for chest pain, troponins negative , EKG with non-specific ST changes, [facility] severe 3 vessel disease, EF 40% with moderate LV dysfunction. Continue optimizing medical therapy and aggressive risk factor modification. Pt had some mild hypotension during admission, medications were held and BP improved. Pt also reported some dizziness for a month that resolved with Meclizine and medications being held. Date of Encounter: 07/29/17 Time of Encounter: 09:30 - Discharge Diagnosis (1) Anxiety Priority: Primary Status: Chronic Assessment and Plan: Chronic. Continue home medications. (2) CAD (coronary artery disease) Priority: Secondary Status: Chronic Assessment and Plan: No chest pain, dizziness resolved. Patient has been evaluated by cardiology, [facility] 07/27 showed 2 of 3 patent bypass grafts. Medical management recommended. Continue beta rolando, aspirin, statin, adnexa, ACEI, and nitrates. Follow with cardiology and PCP. Qualifiers: Coronary Disease-Associated Artery/Lesion type: bypass graft [place] vs. transplanted heart: [place] heart Associated angina: with stable angina Qualified Code(s): I25.708 - Atherosclerosis of coronary artery bypass graft(s) , unspecified, with other forms of angina pectoris (3) Ischemic cardiomyopathy Priority: Secondary Status: Chronic Assessment and Plan: Chronic. LVEF 40% unchanged from prior. Continue sodium and fluid restrictions, daily weights and intake and output after discharge. Continue close follow up with PCP and cardiology. (4) HTN (hypertension) Priority: Secondary Status: Chronic Assessment and Plan: Chronic. Hypotension resolved. Pt states that she feels better. IVF bolus given. Xanax, Lasix, and Lisinopril continue. Qualifiers: Hypertension type: essential hypertension Qualified Code(s): I10 - Essential (primary) hypertension (5) Chest pain Priority: Secondary Status: Acute Assessment and Plan: Pt denies chest pain or dizziness today. Continue beta rolando, aspirin, statin, Ranexa, DWAYNE inhibitor, and nitrates after discharge. Continue home medications, including antihypertensives and Xanax. Qualifiers: Chest pain type: unspecified Qualified Code(s): R07.9 - Chest pain, unspecified (6) Unstable angina Priority: Secondary Status: Acute Assessment and Plan: Plan as above for chest pain. Continue home medications and follow with PCP and cardiology (7) Obesity (BMI 30-39.9) Priority: Secondary Status: Chronic Assessment and Plan: Chronic. Lifestyle modifications. (8) Hematemesis Priority: Secondary Status: Resolved Assessment and Plan: Resolved. None since prior to arrival. Qualifiers: Nausea presence: with nausea Qualified Code(s): K92.0 - Hematemesis (9) DVT prophylaxis Priority: Secondary Status: Acute Assessment and Plan: Heparin. Pt is ambulatory. Hospital course: Ms. Bartlett is a 52 year old female who is admitted for chest pain. Prior history of cardiomyopathy, CHF, CAD, fibromyalgia, hypertension, hyperlipidemia , anxiety, depression, obesity. Patient reported left sided pressure below the left breath with radiation to left neck. Onset during exertion with associated symptoms of diaphoresis, nausea, and vomiting. Pain was resolved with rest. Patient had [facility] on 07/27 that showed severe 3 vessel CAD with mild to moderate LV dysfunction with an EF of 40%. Patient is status post CABG with to 3 patent bypass grafts. Cardiology recommended optimal medical therapy and aggressive risk factor modifications. Patient also reported that she had been having dizziness for over a month. In light of all other testing being negative, symptoms are resolved with meclizine. Patient has some mild hypotension that was resolved also with holding all of her sedating and antihypertensive medications and a 500 and mild fluid bolus. Patient was stable and appropriate for discharge today. Vital signs were stable, labs were stable and within normal limits. Discharge discussed with: patient, nurse - Time Spent with Patient Total time spent providing and/or coordinating discharge services: Less than 30 minutes - Discharge Medications Prescriptions: Meclizine [Antivert] 25 mg PO TID PRN #21 tablet PRN Reason: Dizziness Home Medications: Alprazolam [Xanax] 1 mg PO TID PRN 02/17/15 [History] Paroxetine [Paxil] 45 mg PO DAILY 02/17/15 [History] Ranolazine [Ranexa] 1,000 mg PO BID 02/17/15 [History] Aspirin Enteric Coated [Aspirin EC] 81 mg PO DAILY #30 tablet. 07/15/15 [Rx] Prasugrel [Effient] 10 mg PO DAILY #30 tablet 07/15/15 [Rx] Albuterol Sulfate [Ventolin Hfa] 2 puff IH Q4H PRN 10/18/15 [History] Pravastatin Sodium [Pravachol] 40 mg PO HS 07/24/16 [History] BuPROPion XL (24 HR) [Wellbutrin Xl] 150 mg PO DAILY 08/18/16 [History] Nitroglycerin [Nitrostat] 0.4 mg SL Q5M PRN 08/18/16 [History] Ondansetron HCl 4 mg PO Q8H PRN #12 tablet 08/20/16 [Rx] Fluticasone/Vilanterol [Breo Ellipta 100-25 Mcg INH] 1 puff IH BID 05/10/17 [ History] Furosemide [Lasix] 40 mg PO DAILY 05/10/17 [History] Ibuprofen [Motrin] 800 mg PO Q8HR 05/10/17 [History] Lisinopril 2.5 mg PO DAILY 05/10/17 [History] Omeprazole [PriLOSEC] 20 mg PO DAILY 05/10/17 [History] Potassium Chloride [Klor-Con Sprinkle] 10 meq PO DAILY 05/10/17 [History] Ipratropium/Albuterol Neb [Duoneb] 3 ml IH Q4HR PRN #60 vial.neb 05/15/17 [Rx] Carvedilol [Coreg] 6.25 mg PO BIDWM 07/24/17 [History] Gabapentin [Neurontin] 600 mg PO TID 07/24/17 [History] Isosorbide MONOnitrate (24 HR) [Imdur] 60 mg PO DAILY 07/24/17 [History] Meclizine [Antivert] 25 mg PO TID PRN #21 tablet 07/29/17 [Rx] Allergies/Adverse Reactions: 3 Allergy/AdvReac Type Severity Reaction Status Date / Time azithromycin Allergy Anaphylaxis Verified 07/24/16 19:59 latex Allergy Anaphylaxis Verified 07/24/16 19:59 Penicillins [PCN] Allergy Anaphylaxis Verified 07/24/16 19:59 adhesive tape AdvReac Rash Verified 07/24/16 19:59 Oxycodone [From Percocet] AdvReac See Verified 05/10/17 03:41 Comments Date of admission: 07/27/17 13:45 Primary care physician: Nickolas Zamora DO Discharging clinician: Gale Mann Anticipated date of discharge: 07/29/17 - Constitutional Vitals: Temp Pulse Resp BP Pulse Ox 98.3 F 61 14 123/78 94 07/29/17 07:16 07/29/17 07:16 07/29/17 07:16 07/29/17 07:16 07/29/17 07:16 General appearance: Present: cooperative, mild distress, A&O X 3, pleasant, no acute distress, obese, answers questions appropriately - Head Head exam: Present: atraumatic, normal inspection, normocephalic - Eye Eye exam: Present: normal appearance, conjuntiva pink, sclera anicteric - Neck Neck exam general surgery: Present: supple, trachea midline. Absent: lymphadenopathy, tenderness - Respiratory Respiratory exam: Present: CTAB. Absent: accessory muscle use, rales, rhonchi, wheezes - Cardiovascular Cardiovascular exam: Present: RRR, +S1, +S2. Absent: diastolic murmur, gallop, rubs, systolic murmur - GI/Abdominal GI/Abdominal exam: Present: soft. Absent: distended, hepatomegaly, tenderness - Extremities Exam Extremities exam: Present: normal capillary refill, normal inspection, warm, radial pulses palpable and symmetrical. Absent: calf tenderness, cyanotic, pedal edema, tenderness - Neurological Exam Neurological exam: Present: alert, oriented X3, no focal deficits. Absent: altered, motor sensory deficit, facial droop, speech deficit - Skin Skin exam: Present: dry, intact, normal color, warm. Absent: rash - Patient Status Disposition: Home, Self-Care Condition: Good - Discharge Instructions Instructions: Meclizine (By mouth), Chest Pain (DC), Chronic Hypertension (DC) , Anxiety (DC) Follow Up With: Nickolas Zamora DO [Primary Care Provider] - 08/05/17 11:00 am Additional Instructions: Follow with your PCP as scheduled. Return to the ER as needed for any other problems or concerns. Take your medications as directed, your new prescriptions are at your pharmacy. Return to your normal activities and diet as tolerated. RISK FACTORS: STOP SMOKING: If you smoke, STOP. Smoking or tobacco use significantly increases your risk of heart disease because nicotine causes the arteries to narrow or constrict. It also causes fats to stick to the artery. Your chances of having a heart attack are greatly increased if you continue to smoke. For more information, call the education line for smoking cessation 5-913-DGVUBXY EAT A LOW FAT/CHOLESTEROL/SODIUM DIET: This diet may help reduce your chances of having a heart attack. LIFTING: Avoid lifting anything more than 10 pounds for 5-7 days Prior to straining, laughing, sneezing and/or coughing, apply manual pressure directly over insertion site. ACTIVITY: You may walk or climb stairs as tolerated You can resume sexual activity as tolerated In general, you are encouraged to engage in a minimum of 30 minutes or more of moderate intensity physical activity, such as brisk walking, daily or at least 3 -4 times weekly BATHING Do not submerge the site into water (bath tub, hot tub, swimming pool) for 1 week. This can be a source for infection into the blood stream. You may shower after 24 hours SITE CARE: After 24 hours, you may remove the dressing and leave the site open to air. Keep the site clean and dry. Clean gently and pat dry. You can expect bruising and tenderness that gradually resolve within a week or two. Return to work as instructed per your physician Resume driving as instructed per physician Keep all scheduled follow up appointments Resume medications as instructed IMPORTANT: If prescribed a Platelet Aggregation Inhibitor such as, Plavix, Brilinta or Effient: Duration of therapy is minimum one year These medications are often used in combination with Aspirin in prevention of future heart attacks Never discontinue unless consult with your Deputy City Clerk STROKE (CVA) Risk factors for a stroke are: Age, cigarette smoking, diabetes, excessive alcohol consumption, family history, high blood pressure, overweight, physical inactivity, prior stroke, heart attack, diagnosis of carotid artery stenosis or other artery disease. Warning signs: Sudden numbness or weakness of the face, arm or leg; especially on one side of the body, sudden confusion, trouble speaking or understanding, sudden trouble seeing in one or both eyes, sudden trouble walking, dizziness, loss of balance or coordination, sudden severe headache with no cause. Call 911 or go to the Emergency Room. CONGESTIVE HEART FAILURE: If you have been diagnosed with Congestive Heart Failure (CHF) and your symptoms return, make an appointment with your physician Weigh yourself daily. Notify your physician if you have a weight gain of two or more pounds in one day or five or more pounds in one week. If you experience any difficulty breathing, please call 911 BLEEDING: Although the risk of bleeding is minimal, it can happen. If you have any bleeding from the site, apply firm pressure above the puncture site for 10-15 minutes. If the bleeding does not stop, continue manual pressure and call 911 Contact your physician if: You develop a fever greater than 101 degrees Fahrenheit Your site becomes reddened or has any drainage You have an increase in pain or burning at the site or if a large knot forms at the site. If you experience chest pain, shortness of breath, dizziness, or extreme tiredness, stop the activity and rest. Please notify your physicians office if you experience any of these symptoms and they are not relieved by rest please call 911! - Diet and Activity Activity: increase activity as tolerated, resume usual activities as tolerated Diet: low fat, low cholesterol, low salt diet
== END 2017-07-29 13:10 | disposition home or self-care (01) | DRG 191 ==
LOC: 3BNU 16:04 → EMEROO 16:04 → 3BNU 19:47
PROVIDERS: ADMIT Nurse Practitioner; ATTEND Internal Medicine

== ENCOUNTER 2019-03-30 10:19 | Observation (INO) ==
[2019-03-30] MEDS ORDERED: Nitroglycerin 1 INCH/GM PACKET TP ONE (11:13)
[2019-03-30 11:16] LABS: Basophils % 0.2 %; Eosinophils # 0.4 K/mcL (0.0-0.6); Eosinophils % 5.4 %; Hematocrit 38.5 % (35.3-44.9); Hemoglobin 13.4 g/dL (11.5-15.4); Immature Granulocytes % 0.3 % (0-4); Lymphocytes % 30.8 %; Mean Corpuscular HGB Conc 34.8 g/dL (31.6-35.5); Mean Corpuscular Volume 83.3 fL (83.0-100.0); Monocytes # 0.4 K/mcL (0.0-1.3); Monocytes % 6.8 %; Neutrophils # 3.7 K/mcL (1.6-8.9); Platelet Count 174 K/mcL (140-400); Red Blood Count 4.62 M/mcL (3.82-4.97); Red Cell Distribution Width 13.2 % (11.5-14.5); Segmented Neutrophils % 56.5 %; White Blood Count 6.5 K/mcL (4.3-11.1)
[2019-03-30 11:36] LABS: BUN/Creatinine Ratio 18 (6-26); Blood Urea Nitrogen 15 mg/dL (6-20); Carbon Dioxide 23 mEq/L (23-29); Chloride 102 mEq/L (98-107); Glucose 103 mg/dL (70-105); Osmolality,Calculated 285 (280-300); Potassium 3.7 mEq/L (3.5-5.1); Sodium 137 mEq/L (136-145); Troponin I < 0.03 ng/mL (< 0.04); eGFR For African Americans > 60 (> 60); eGFR For Non-African Americans > 60 (> 60)
[2019-03-30] MEDS ORDERED: Ondansetron 4 MG/2 ML VIAL ONE (12:12)
[2019-03-30] MEDS ORDERED: Ondansetron 4 MG/2 ML VIAL IVP ONE (12:13)
[2019-03-30] MEDS ORDERED: Aspirin 325 MG TABLET PO ONE (12:37)
[2019-03-30] MEDS ORDERED: Naloxone 0.4 MG/ML INJ IVP PRN (13:45)
[2019-03-30] MEDS ORDERED: Ondansetron 4 MG/2 ML VIAL IVP PRN (13:45)
[2019-03-30] MEDS ORDERED: Nitroglycerin 0.4 MG TAB.SUBL SL PRN (13:47)
[2019-03-30] MEDS ORDERED: ALPRAZolam 1 MG TABLET PO PRN (14:21)
[2019-03-30] MEDS ORDERED: Perflutren Lipid Microsphere 1.3 ML in 0.9 % Sodium Chloride 8.7 ML IVP ONE (15:33)
[2019-03-30] MEDS ORDERED: Hyoscyamine SL 0.125 MG TAB.SUBL SL PRN (15:54)
[2019-03-30] MEDS ORDERED: Ipratropium/Albuterol Neb 3 ML IH PRN (15:54)
[2019-03-30] MEDS: *HR* Heparin 5,000 UNIT/ML VIAL SQ SCH (18:32)
[2019-03-30] MEDS: carvediloL 6.25 MG TABLET PO SCH (18:32)
[2019-03-30] MEDS: Ranolazine 500 MG TAB.ER.12H PO SCH (19:47)
[2019-03-30] MEDS: Gabapentin 300 MG CAPSULE PO SCH ×2 (19:47→19:48)
[2019-03-31 02:05] LABS: Basophils % 0.4 %; Eosinophils # 0.3 K/mcL (0.0-0.6); Eosinophils % 5.3 %; Hematocrit 39.7 % (35.3-44.9); Hemoglobin 13.4 g/dL (11.5-15.4); Immature Granulocytes % 0.2 % (0-4); Lymphocytes % 37.1 %; Mean Corpuscular HGB Conc 33.8 g/dL (31.6-35.5); Mean Corpuscular Hemoglobin 29.1 pg (28.0-33.3); Mean Corpuscular Volume 86.1 fL (83.0-100.0); Mean Platelet Volume 11.2 fL (9.4-12.4); Monocytes # 0.4 K/mcL (0.0-1.3); Monocytes % 6.6 %; Neutrophils # 2.7 K/mcL (1.6-8.9); Platelet Count 176 K/mcL (140-400); Red Blood Count 4.61 M/mcL (3.82-4.97); Red Cell Distribution Width 13.2 % (11.5-14.5); Segmented Neutrophils % 50.4 %; White Blood Count 5.3 K/mcL (4.3-11.1)
[2019-03-31 02:29] LABS: BUN/Creatinine Ratio 13 (6-26); Blood Urea Nitrogen 14 mg/dL (6-20); Carbon Dioxide 28 mEq/L (23-29); Chloride 103 mEq/L (98-107); Chol/HDL Ratio 4.7 (0-4.9); Cholesterol 194 mg/dL (< 200); Glucose 96 mg/dL (70-105); HDL Cholesterol 41 mg/dL (40-59); LDL Cholesterol,Calculated 106 mg/dL (0-99); Magnesium 2.3 mg/dL (1.6-2.6); Osmolality,Calculated 292 (280-300); Potassium 4.5 mEq/L (3.5-5.1); Sodium 141 mEq/L (136-145); Triglycerides 236 mg/dL (< 150); eGFR For African Americans > 60 (> 60); eGFR For Non-African Americans 55 (> 60)
[2019-03-31] MEDS: *HR* Heparin 5,000 UNIT/ML VIAL SQ SCH (06:36)
[2019-03-31] MEDS: carvediloL 6.25 MG TABLET PO SCH (08:00)
[2019-03-31] MEDS ORDERED: Regadenoson 0.4 MG/5 ML SYRINGE IVP ONE (08:37)
[2019-03-31] MEDS ORDERED: Aspirin Enteric Coated 81 MG Tablet PO SCH (09:00)
[2019-03-31] MEDS ORDERED: BuPROPion XL (24 HR) 150 MG TABLET PO SCH (09:00)
[2019-03-31] MEDS ORDERED: PARoxetine 30 MG TABLET PO SCH (09:00)
[2019-03-31] MEDS: Gabapentin 300 MG CAPSULE PO SCH ×2 (09:00→15:41)
[2019-03-31 13:25] VITALS: BP 111/71
[2019-03-31] MEDS: Ranolazine 500 MG TAB.ER.12H PO SCH (13:34)
[2019-03-31] MEDS ORDERED: Acetaminophen 325 MG TABLET PO ONE (15:32)
== END 2019-03-31 16:00 | disposition home or self-care (01) ==
LOC: 3BNU 10:19 → EMEROOARM 10:19 → 3BNU 17:31
PROVIDERS: ADMIT Internal Medicine; ATTEND Internal Medicine

== ENCOUNTER 2020-01-25 15:15 | Observation (INO) ==
[2020-01-25 15:58] LABS: Basophils % 0.5 %; Eosinophils # 0.3 K/mcL (0.0-0.6); Eosinophils % 3.9 %; Hematocrit 44.2 % (35.3-44.9); Hemoglobin 14.2 g/dL (11.5-15.4); Immature Granulocytes % 0.3 % (0-4); Lymphocytes # 1.8 K/mcL (0.6-4.6); Lymphocytes % 26.8 %; Mean Corpuscular HGB Conc 32.1 g/dL (31.6-35.5); Mean Corpuscular Hemoglobin 28.6 pg (28.0-33.3); Mean Corpuscular Volume 88.9 fL (83.0-100.0); Mean Platelet Volume 11.2 fL (9.4-12.4); Monocytes # 0.4 K/mcL (0.0-1.3); Neutrophils # 4.2 K/mcL (1.6-8.9); Platelet Count 207 K/mcL (140-400); Red Blood Count 4.97 M/mcL (3.82-4.97); Red Cell Distribution Width 14.2 % (11.5-14.5); Segmented Neutrophils % 62.5 %; White Blood Count 6.6 K/mcL (4.3-11.1)
[2020-01-25] MEDS: Nitroglycerin 0.4 MG TAB.SUBL SL PRN ×3 (16:18→16:30)
[2020-01-25 16:24] LABS: BUN/Creatinine Ratio 14 (6-26); Blood Urea Nitrogen 10 mg/dL (6-20); Calcium 9.1 mg/dL (8.6-10.3); Carbon Dioxide 25 mEq/L (23-29); Chloride 105 mEq/L (98-107); Glucose 101 mg/dL (70-105); Osmolality,Calculated 287 (280-300); Potassium 4.2 mEq/L (3.5-5.1); Sodium 139 mEq/L (136-145); Troponin I 0.11 ng/mL (< 0.04); eGFR For African Americans > 60 (> 60); eGFR For Non-African Americans > 60 (> 60)
[2020-01-25] MEDS ORDERED: *HR* FentaNYL (PF) 100 MCG/2 ML VIAL IVP ONE (16:40)
[2020-01-25] MEDS ORDERED: *HR* Heparin 5,000 UNIT/ML VIAL IVP ONE (16:52)
[2020-01-25] MEDS ORDERED: *HR* Heparin 5,000 UNIT/ML VIAL IVP PRN ×2 (16:52)
[2020-01-25] MEDS ORDERED: Naloxone 0.4 MG/ML INJ IVP PRN (17:12)
[2020-01-25] MEDS: Heparin 25,000UNIT/250ML 1/2NS 25,000 UNIT/250 ML IV.SOLN IVC SCH (17:29)
[2020-01-25 17:32] LABS: Hematocrit 44.9 % (35.3-44.9); Hemoglobin 14.4 g/dL (11.5-15.4); Mean Corpuscular HGB Conc 32.1 g/dL (31.6-35.5); Mean Corpuscular Volume 90.5 fL (83.0-100.0); Platelet Count 207 K/mcL (140-400); Red Blood Count 4.96 M/mcL (3.82-4.97); White Blood Count 7.2 K/mcL (4.3-11.1)
[2020-01-25 17:38] LABS: Heparin anti-factor XA UFH < 0.04 IU/mL (0.30-0.70); INR 1.2; Prothrombin Time 13.3 Seconds (9.4-12.1)
[2020-01-25] MEDS ORDERED: Perflutren Lipid Microsphere 1.3 ML in 0.9 % Sodium Chloride 8.7 ML IVP PRN (19:06)
[2020-01-25] MEDS ORDERED: hydrOXYzine pamoate 25 MG CAPSULE PO PRN (19:10)
[2020-01-25] MEDS ORDERED: Hyoscyamine SL 0.125 MG TAB.SUBL SL PRN (19:10)
[2020-01-25] MEDS ORDERED: Ipratropium/Albuterol Neb 3 ML IH PRN (19:10)
[2020-01-25] MEDS: Ondansetron 4 MG/2 ML VIAL IVP PRN (20:10)
[2020-01-25] MEDS: ALPRAZolam 1 MG TABLET PO PRN (20:11)
[2020-01-25] MEDS: Ranolazine 500 MG TAB.ER.12H PO SCH (20:11)
[2020-01-25] MEDS: Gabapentin 400 MG CAPSULE PO SCH (20:11)
[2020-01-25] MEDS: *HR* HYDROmorphone PF 0.5 MG/0.5 ML SYRINGE IVP PRN (20:11)
[2020-01-26] MEDS: *HR* HYDROmorphone PF 0.5 MG/0.5 ML SYRINGE IVP PRN ×2 (00:16→05:47)
[2020-01-26 03:14] LABS: Basophils % 0.4 %; Eosinophils # 0.3 K/mcL (0.0-0.6); Eosinophils % 4.1 %; Hematocrit 41.1 % (35.3-44.9); Hemoglobin 12.9 g/dL (11.5-15.4); Immature Granulocytes % 0.1 % (0-4); Lymphocytes # 2.7 K/mcL (0.6-4.6); Lymphocytes % 35.7 %; Mean Corpuscular HGB Conc 31.4 g/dL (31.6-35.5); Mean Corpuscular Hemoglobin 28.4 pg (28.0-33.3); Mean Corpuscular Volume 90.5 fL (83.0-100.0); Mean Platelet Volume 11.1 fL (9.4-12.4); Monocytes # 0.5 K/mcL (0.0-1.3); Monocytes % 6.4 %; Platelet Count 179 K/mcL (140-400); Red Blood Count 4.54 M/mcL (3.82-4.97); Segmented Neutrophils % 53.3 %; White Blood Count 7.5 K/mcL (4.3-11.1)
[2020-01-26 03:23] LABS: Estimated Average Glucose 134 mg/dl
[2020-01-26 03:29] LABS: BUN/Creatinine Ratio 18 (6-26); Blood Urea Nitrogen 13 mg/dL (6-20); Calcium 8.8 mg/dL (8.6-10.3); Carbon Dioxide 25 mEq/L (23-29); Chloride 103 mEq/L (98-107); Chol/HDL Ratio 3.6 (0-4.9); Cholesterol 183 mg/dL (< 200); Glucose 106 mg/dL (70-105); HDL Cholesterol 51 mg/dL (40-59); LDL Cholesterol,Calculated 95 mg/dL (< 100); Magnesium 2.2 mg/dL (1.6-2.6); Osmolality,Calculated 283 (280-300); Potassium 4.3 mEq/L (3.5-5.1); Sodium 136 mEq/L (136-145); Triglycerides 187 mg/dL (< 150); eGFR For African Americans > 60 (> 60); eGFR For Non-African Americans > 60 (> 60)
[2020-01-26] MEDS: Ondansetron 4 MG/2 ML VIAL IVP PRN (05:46)
[2020-01-26] MEDS: Ranolazine 500 MG TAB.ER.12H PO SCH ×2 (09:59→20:04)
[2020-01-26] MEDS: BuPROPion SR (12 HR) 150 MG TABLET PO SCH (09:59)
[2020-01-26] MEDS: Furosemide 40 MG TABLET PO SCH (09:59)
[2020-01-26] MEDS: Aspirin Enteric Coated 81 MG Tablet PO SCH (09:59)
[2020-01-26] MEDS: Isosorbide MONOnitrate (24 HR) 60 MG TAB.ER.24H PO SCH (09:59)
[2020-01-26] MEDS: PARoxetine 20 MG TABLET PO SCH (09:59)
[2020-01-26] MEDS: carvediloL 6.25 MG TABLET PO SCH ×2 (10:00→16:11)
[2020-01-26] MEDS: Gabapentin 400 MG CAPSULE PO SCH ×3 (10:01→18:07)
[2020-01-26] MEDS ORDERED: *HR* FentaNYL (PF) 100 MCG/2 ML VIAL ONE (11:06)
[2020-01-26] MEDS ORDERED: *HR* Midazolam HCl 2 MG/2 ML VIAL ONE ×2 (11:06→13:15)
[2020-01-26] MEDS ORDERED: Ondansetron 4 MG/2 ML VIAL ONE (11:16)
[2020-01-26] MEDS ORDERED: ISOVUE-370 200 ML INFUS..BTL ONE (12:02)
[2020-01-26] MEDS ORDERED: *HR* Heparin 10,000 UNIT/10 ML VIAL ONE (12:08)
[2020-01-26] MEDS ORDERED: Heparin 1,000 UNITS/500 mL 500 ML ONE (12:21)
[2020-01-26] MEDS ORDERED: *HR* Adenosine 6 MG/2 ML VIAL IVP ONE ×2 (12:56→12:57)
[2020-01-26] MEDS ORDERED: 0.9 % Sodium Chloride 1,000 ML ONE (13:04)
[2020-01-26] MEDS ORDERED: *HR* Nitroprusside 50 MG VIAL IVC ONE (13:08)
[2020-01-26] MEDS ORDERED: D5% in Water 250 ML ONE (13:10)
[2020-01-26] MEDS: 0.9 % Sodium Chloride 1,000 ML IVC SCH (16:12)
[2020-01-26] MEDS: ALPRAZolam 1 MG TABLET PO PRN (18:07)
[2020-01-26] MEDS: Acetaminophen 325 MG TABLET PO PRN (20:03)
[2020-01-27] MEDS: ALPRAZolam 1 MG TABLET PO PRN ×2 (00:33→16:59)
[2020-01-27] MEDS: Gabapentin 400 MG CAPSULE PO SCH ×3 (00:33→21:30)
[2020-01-27] MEDS: Ondansetron 4 MG/2 ML VIAL IVP PRN ×2 (00:41→19:41)
[2020-01-27] MEDS: Heparin 25,000UNIT/250ML 1/2NS 25,000 UNIT/250 ML IV.SOLN IVC SCH ×2 (02:58→06:14)
[2020-01-27] MEDS: 0.9 % Sodium Chloride 1,000 ML IVC SCH ×2 (03:09→11:44)
[2020-01-27 04:59] LABS: Basophils % 0.3 %; Eosinophils # 0.2 K/mcL (0.0-0.6); Hematocrit 34.5 % (35.3-44.9); Immature Granulocytes % 0.3 % (0-4); Lymphocytes # 2.2 K/mcL (0.6-4.6); Mean Corpuscular HGB Conc 31.9 g/dL (31.6-35.5); Mean Corpuscular Hemoglobin 29.5 pg (28.0-33.3); Mean Corpuscular Volume 92.5 fL (83.0-100.0); Mean Platelet Volume 11.5 fL (9.4-12.4); Monocytes # 0.5 K/mcL (0.0-1.3); Neutrophils # 4.5 K/mcL (1.6-8.9); Platelet Count 146 K/mcL (140-400); Red Blood Count 3.73 M/mcL (3.82-4.97); Red Cell Distribution Width 14.1 % (11.5-14.5); Segmented Neutrophils % 60.4 %; White Blood Count 7.5 K/mcL (4.3-11.1)
[2020-01-27 05:11] LABS: BUN/Creatinine Ratio 18 (6-26); Blood Urea Nitrogen 13 mg/dL (6-20); Carbon Dioxide 28 mEq/L (23-29); Chloride 107 mEq/L (98-107); Glucose 98 mg/dL (70-105); Osmolality,Calculated 286 (280-300); Potassium 4.2 mEq/L (3.5-5.1); Sodium 138 mEq/L (136-145); eGFR For African Americans > 60 (> 60); eGFR For Non-African Americans > 60 (> 60)
[2020-01-27] MEDS: Aspirin Enteric Coated 81 MG Tablet PO SCH (07:55)
[2020-01-27] MEDS: BuPROPion SR (12 HR) 150 MG TABLET PO SCH (07:56)
[2020-01-27] MEDS: PARoxetine 20 MG TABLET PO SCH (07:56)
[2020-01-27] MEDS: Ranolazine 500 MG TAB.ER.12H PO SCH ×2 (07:56→19:28)
[2020-01-27] MEDS: Furosemide 40 MG TABLET PO SCH (07:56)
[2020-01-27] MEDS: Isosorbide MONOnitrate (24 HR) 60 MG TAB.ER.24H PO SCH (07:57)
[2020-01-27] MEDS: carvediloL 6.25 MG TABLET PO SCH ×2 (07:57→16:54)
[2020-01-27] MEDS: *HR* HYDROcodone/Acet 5/325 mg TABLET PO PRN ×2 (11:43→23:45)
[2020-01-27] MEDS ORDERED: Furosemide 20 MG/2 ML VIAL IVP ONE (14:34)
[2020-01-28 04:10] LABS: Basophils % 0.3 %; Eosinophils # 0.3 K/mcL (0.0-0.6); Eosinophils % 4.5 %; Hematocrit 37.3 % (35.3-44.9); Hemoglobin 11.6 g/dL (11.5-15.4); Immature Granulocytes % 0.2 % (0-4); Lymphocytes # 1.8 K/mcL (0.6-4.6); Lymphocytes % 29.4 %; Mean Corpuscular HGB Conc 31.1 g/dL (31.6-35.5); Mean Corpuscular Hemoglobin 28.8 pg (28.0-33.3); Mean Corpuscular Volume 92.6 fL (83.0-100.0); Monocytes # 0.4 K/mcL (0.0-1.3); Monocytes % 6.6 %; Neutrophils # 3.7 K/mcL (1.6-8.9); Platelet Count 145 K/mcL (140-400); Red Blood Count 4.03 M/mcL (3.82-4.97); Red Cell Distribution Width 14.2 % (11.5-14.5); White Blood Count 6.2 K/mcL (4.3-11.1)
[2020-01-28 04:25] LABS: BUN/Creatinine Ratio 16 (6-26); Blood Urea Nitrogen 13 mg/dL (6-20); Calcium 8.6 mg/dL (8.6-10.3); Carbon Dioxide 32 mEq/L (23-29); Chloride 103 mEq/L (98-107); Glucose 83 mg/dL (70-105); Magnesium 1.9 mg/dL (1.6-2.6); Osmolality,Calculated 287 (280-300); Potassium 3.9 mEq/L (3.5-5.1); Sodium 139 mEq/L (136-145); eGFR For African Americans > 60 (> 60); eGFR For Non-African Americans > 60 (> 60)
[2020-01-28] MEDS: Acetaminophen 325 MG TABLET PO PRN (05:24)
[2020-01-28 06:25] VITALS: BP 94/65
[2020-01-28] MEDS: carvediloL 6.25 MG TABLET PO SCH (07:47)
[2020-01-28] MEDS: Furosemide 40 MG TABLET PO SCH (07:55)
[2020-01-28] MEDS: BuPROPion SR (12 HR) 150 MG TABLET PO SCH (07:55)
[2020-01-28] MEDS: Ranolazine 500 MG TAB.ER.12H PO SCH (07:55)
[2020-01-28] MEDS: PARoxetine 20 MG TABLET PO SCH (07:55)
[2020-01-28] MEDS: Aspirin Enteric Coated 81 MG Tablet PO SCH (07:56)
[2020-01-28] MEDS: Isosorbide MONOnitrate (24 HR) 60 MG TAB.ER.24H PO SCH (07:56)
[2020-01-28] MEDS: Gabapentin 400 MG CAPSULE PO SCH (07:58)
[2020-01-28] MEDS: Ondansetron 4 MG/2 ML VIAL IVP PRN (08:03)
== END 2020-01-28 12:43 | disposition home or self-care (01) ==
LOC: EMEROOARM 15:15 → 3BNU 15:15 → SUATTDRO 17:22 → 3BNU 19:36
PROVIDERS: ADMIT Pharmacist; ATTEND Pharmacist

== ENCOUNTER 2021-09-13 16:16 | Inpatient (IN) ==
[2021-09-13] MEDS ORDERED: Aspirin 81 MG TAB.CHEW PO ONE (16:44)
[2021-09-13 17:01] LABS: Basophils % 0.5 %; Immature Granulocytes % 0.2 % (0-4); Red Blood Count 4.43 M/mcL (3.82-4.97); Red Cell Distribution Width 14.2 % (11.5-14.5)
[2021-09-13 17:03] LABS: Eosinophils # 0.2 K/mcL (0.0-0.6); Eosinophils % 3.5 %; Hemoglobin 12.9 g/dL (11.5-15.4); Immature Platelets 5.2 % (1.1-6.1); Lymphocytes # 2.1 K/mcL (0.6-4.6); Lymphocytes % 32.4 %; Mean Corpuscular HGB Conc 33.9 g/dL (31.6-35.5); Mean Corpuscular Hemoglobin 29.1 pg (28.0-33.3); Mean Corpuscular Volume 85.8 fL (83.0-100.0); Mean Platelet Volume 11.2 fL (9.4-12.4); Monocytes # 0.5 K/mcL (0.0-1.3); Monocytes % 8.2 %; Platelet Count 130 K/mcL (140-400); Segmented Neutrophils % 55.2 %; White Blood Count 6.6 K/mcL (4.3-11.1)
[2021-09-13 17:13] LABS: INR 1.2; Prothrombin Time 13.9 Seconds (9.4-12.1)
[2021-09-13 17:15] LABS: Activated Partial Thrombo Time 33.2 Seconds (26.0-36.0)
[2021-09-13 17:27] LABS: Alanine Aminotransferase 23 Units/L (7-52); Albumin 3.7 g/dL (3.5-5.7); Albumin/Globulin Ratio 1.3 (1.1-2.2); Alkaline Phosphatase 106 Units/L (34-104); Aspartate Amino Transferase 23 Units/L (13-39); BUN/Creatinine Ratio 15 (6-26); Bilirubin,Direct 0.2 mg/dL (0.0-0.2); Bilirubin,Indirect 0.4 mg/dL (0.0-1.0); Bilirubin,Total 0.6 mg/dL (0.3-1.0); Blood Urea Nitrogen 13 mg/dL (6-20); Calcium 8.8 mg/dL (8.6-10.3); Carbon Dioxide 25 mEq/L (23-29); Chloride 103 mEq/L (98-107); Globulin 2.8 g/dL (2.4-3.5); Glucose 86 mg/dL (70-105); Osmolality,Calculated 283 (280-300); Potassium 4.4 mEq/L (3.5-5.1); Sodium 137 mEq/L (136-145); Total Protein 6.5 g/dL (6.4-8.9); Troponin I < 0.03 ng/mL (< 0.04); eGFR For African Americans > 60 (> 60); eGFR For Non-African Americans > 60 (> 60)
[2021-09-13 17:28] LABS: Neutrophils # 3.6 K/mcL (1.6-8.9)
[2021-09-13] MEDS ORDERED: Ondansetron 4 MG/2 ML VIAL IVP STA ×2 (17:31→20:38)
[2021-09-13] MEDS: Nitroglycerin 0.4 MG TAB.SUBL SL PRN ×2 (17:34→17:40)
[2021-09-13] MEDS ORDERED: 0.9 % Sodium Chloride 1,000 ML IV ONE ×2 (17:45→20:20)
[2021-09-13] MEDS ORDERED: *HR* FentaNYL (PF) 100 MCG/2 ML VIAL IVP ONE (17:45)
[2021-09-13] MEDS ORDERED: *HR* Heparin 5,000 UNIT/ML VIAL IVP ONE (20:19)
[2021-09-13] MEDS ORDERED: *HR* Heparin 5,000 UNIT/ML VIAL IVP PRN ×2 (20:19)
[2021-09-13 20:53] LABS: Hematocrit 35.8 % (35.3-44.9); Mean Corpuscular HGB Conc 33.5 g/dL (31.6-35.5); Mean Corpuscular Hemoglobin 29.5 pg (28.0-33.3); Platelet Count 123 K/mcL (140-400); Red Blood Count 4.07 M/mcL (3.82-4.97); Red Cell Distribution Width 14.2 % (11.5-14.5); White Blood Count 6.2 K/mcL (4.3-11.1)
[2021-09-13] MEDS ORDERED: Acetaminophen 325 MG TABLET PO PRN (21:06)
[2021-09-13] MEDS ORDERED: Naloxone 0.4 MG/ML INJ IVP PRN (21:06)
[2021-09-13] MEDS ORDERED: Melatonin 3 MG TABLET PO PRN (21:06)
[2021-09-13] MEDS: Heparin 25,000UNIT/250ML 1/2NS 25,000 UNIT/250 ML IV.SOLN IVC SCH (21:10)
[2021-09-13] MEDS ORDERED: Perflutren Lipid Microsphere 1.3 ML in 0.9 % Sodium Chloride 8.7 ML IVP PRN (21:10)
[2021-09-13 21:13] LABS: Heparin anti-factor XA UFH < 0.04 IU/mL (0.30-0.70); INR 1.3; Prothrombin Time 14.8 Seconds (9.4-12.1)
[2021-09-13 23:32] LABS: Influenza A PCR Negative (Negative); Influenza B PCR Negative (Negative); Resp. Syncytial Virus PCR Negative (Negative); SARS-CoV-2 by PCR (In House) Negative (Negative)
[2021-09-13] MEDS ORDERED: traZODone 50 MG TABLET PO PRN (23:37)
[2021-09-14 03:57] LABS: Hematocrit 36.9 % (35.3-44.9); Hemoglobin 12.2 g/dL (11.5-15.4); Mean Corpuscular HGB Conc 33.1 g/dL (31.6-35.5); Mean Corpuscular Hemoglobin 29.1 pg (28.0-33.3); Mean Corpuscular Volume 88.1 fL (83.0-100.0); Mean Platelet Volume 10.9 fL (9.4-12.4); Platelet Count 122 K/mcL (140-400); Red Blood Count 4.19 M/mcL (3.82-4.97); Red Cell Distribution Width 14.4 % (11.5-14.5); White Blood Count 6.2 K/mcL (4.3-11.1)
[2021-09-14 04:17] LABS: Estimated Average Glucose 111 mg/dl; Hemoglobin A1C 5.5 %
[2021-09-14 04:25] LABS: BUN/Creatinine Ratio 16 (6-26); Blood Urea Nitrogen 12 mg/dL (6-20); Calcium 8.4 mg/dL (8.6-10.3); Carbon Dioxide 26 mEq/L (23-29); Chloride 109 mEq/L (98-107); Chol/HDL Ratio 2.3 (0-4.9); Cholesterol 121 mg/dL (< 200); Glucose 83 mg/dL (70-105); HDL Cholesterol 52 mg/dL (40-59); LDL Cholesterol,Calculated 54 mg/dL (< 100); Magnesium 2.1 mg/dL (1.6-2.6); Osmolality,Calculated 293 (280-300); Phosphorous 3.5 mg/dL (2.7-4.5); Sodium 142 mEq/L (136-145); Triglycerides 73 mg/dL (< 150); Troponin I < 0.03 ng/mL (< 0.04); eGFR For African Americans > 60 (> 60); eGFR For Non-African Americans > 60 (> 60)
[2021-09-14 04:38] LABS: Thyroid Stimulating Hormone 0.796 mcIU/mL (0.340-5.600)
[2021-09-14] MEDS ORDERED: Regadenoson 0.4 MG/5 ML SYRINGE IVP ONE (07:40)
[2021-09-14] MEDS ORDERED: Aspirin 81 MG TAB.CHEW PO SCH (09:00)
[2021-09-14] MEDS: Ondansetron ODT 4 MG TAB.RAPDIS SL PRN (11:46)
[2021-09-14] MEDS: *HR* HYDROcodone/Acet 5/325 mg TABLET PO PRN ×2 (11:46→20:16)
[2021-09-14] MEDS: Gabapentin 300 MG CAPSULE PO SCH ×2 (16:19→20:17)
[2021-09-14] MEDS: carvediloL 6.25 MG TABLET PO SCH (16:19)
[2021-09-14] MEDS: ALPRAZolam 1 MG TABLET PO PRN (16:23)
[2021-09-14] MEDS: Ranolazine 500 MG TAB.ER.12H PO SCH (20:17)
[2021-09-15 01:16] LABS: Hematocrit 36.9 % (35.3-44.9); Hemoglobin 11.9 g/dL (11.5-15.4); Mean Corpuscular HGB Conc 32.2 g/dL (31.6-35.5); Mean Corpuscular Hemoglobin 28.9 pg (28.0-33.3); Mean Corpuscular Volume 89.6 fL (83.0-100.0); Mean Platelet Volume 10.8 fL (9.4-12.4); Platelet Count 120 K/mcL (140-400); Red Blood Count 4.12 M/mcL (3.82-4.97); Red Cell Distribution Width 14.6 % (11.5-14.5); White Blood Count 5.5 K/mcL (4.3-11.1)
[2021-09-15 01:31] LABS: BUN/Creatinine Ratio 15 (6-26); Blood Urea Nitrogen 13 mg/dL (6-20); Calcium 8.6 mg/dL (8.6-10.3); Carbon Dioxide 26 mEq/L (23-29); Chloride 105 mEq/L (98-107); Glucose 113 mg/dL (70-105); Osmolality,Calculated 285 (280-300); Potassium 3.9 mEq/L (3.5-5.1); Sodium 137 mEq/L (136-145); eGFR For African Americans > 60 (> 60); eGFR For Non-African Americans > 60 (> 60)
[2021-09-15] MEDS: Heparin 25,000UNIT/250ML 1/2NS 25,000 UNIT/250 ML IV.SOLN IVC SCH (01:57)
[2021-09-15] MEDS: Aspirin Enteric Coated 81 MG Tablet PO SCH (08:56)
[2021-09-15] MEDS: Ranolazine 500 MG TAB.ER.12H PO SCH ×2 (08:56→19:49)
[2021-09-15] MEDS: Gabapentin 300 MG CAPSULE PO SCH ×3 (08:57→19:49)
[2021-09-15] MEDS: carvediloL 6.25 MG TABLET PO SCH ×2 (08:57→15:58)
[2021-09-15] MEDS: PAROXETINE HCL 30 MG PO SCH (08:57)
[2021-09-15] MEDS: BuPROPion SR (12 HR) 150 MG TABLET PO SCH (08:57)
[2021-09-15] MEDS: Furosemide 40 MG TABLET PO SCH (08:57)
[2021-09-15] MEDS: ALPRAZolam 1 MG TABLET PO PRN ×2 (15:57→23:13)
[2021-09-15] MEDS: Ondansetron ODT 4 MG TAB.RAPDIS SL PRN (21:43)
[2021-09-15] MEDS: *HR* HYDROcodone/Acet 5/325 mg TABLET PO PRN (21:43)
[2021-09-16 04:01] LABS: Basophils % 0.4 %; Eosinophils # 0.2 K/mcL (0.0-0.6); Hematocrit 37.5 % (35.3-44.9); Hemoglobin 12.4 g/dL (11.5-15.4); Immature Granulocytes % 0.4 % (0-4); Immature Platelets 5.2 % (1.1-6.1); Lymphocytes # 1.9 K/mcL (0.6-4.6); Lymphocytes % 34.7 %; Mean Corpuscular HGB Conc 33.1 g/dL (31.6-35.5); Mean Corpuscular Hemoglobin 29.7 pg (28.0-33.3); Mean Corpuscular Volume 89.7 fL (83.0-100.0); Mean Platelet Volume 11.5 fL (9.4-12.4); Monocytes # 0.4 K/mcL (0.0-1.3); Monocytes % 7.8 %; Neutrophils # 2.9 K/mcL (1.6-8.9); Platelet Count 121 K/mcL (140-400); Red Blood Count 4.18 M/mcL (3.82-4.97); Red Cell Distribution Width 14.7 % (11.5-14.5); Segmented Neutrophils % 52.7 %; White Blood Count 5.5 K/mcL (4.3-11.1)
[2021-09-16 04:17] LABS: BUN/Creatinine Ratio 14 (6-26); Blood Urea Nitrogen 15 mg/dL (6-20); Calcium 8.9 mg/dL (8.6-10.3); Carbon Dioxide 29 mEq/L (23-29); Chloride 101 mEq/L (98-107); Glucose 115 mg/dL (70-105); Osmolality,Calculated 286 (280-300); Potassium 4.1 mEq/L (3.5-5.1); Sodium 137 mEq/L (136-145); eGFR For African Americans > 60 (> 60); eGFR For Non-African Americans 53 (> 60)
[2021-09-16] MEDS: Aspirin Enteric Coated 81 MG Tablet PO SCH (08:42)
[2021-09-16] MEDS: Ranolazine 500 MG TAB.ER.12H PO SCH ×2 (08:42→21:03)
[2021-09-16] MEDS: Gabapentin 300 MG CAPSULE PO SCH ×3 (08:42→21:42)
[2021-09-16] MEDS: Heparin 25,000UNIT/250ML 1/2NS 25,000 UNIT/250 ML IV.SOLN IVC SCH (08:42)
[2021-09-16] MEDS: carvediloL 6.25 MG TABLET PO SCH ×2 (08:42→15:48)
[2021-09-16] MEDS: BuPROPion SR (12 HR) 150 MG TABLET PO SCH (08:42)
[2021-09-16] MEDS: Furosemide 40 MG TABLET PO SCH (08:43)
[2021-09-16] MEDS: PAROXETINE HCL 30 MG PO SCH (08:48)
[2021-09-16] MEDS ORDERED: *HR* Midazolam HCl 2 MG/2 ML VIAL ONE (12:10)
[2021-09-16] MEDS ORDERED: *HR* FentaNYL (PF) 100 MCG/2 ML VIAL ONE (12:10)
[2021-09-16] MEDS ORDERED: 0.9 % Sodium Chloride 2,000 ML ONE (12:11)
[2021-09-16] MEDS ORDERED: *HR* Heparin 10,000 UNIT/10 ML VIAL ONE (12:12)
[2021-09-16] MEDS ORDERED: Heparin 1,000 UNITS/500 mL 500 ML ONE (12:12)
[2021-09-16] MEDS ORDERED: Iopamidol - 370 200 ML INFUS..BTL ONE (12:12)
[2021-09-16] MEDS ORDERED: Nitroglycerin 1,000 MCG/5 ML VIAL IV ONE (12:12)
[2021-09-17 07:13] VITALS: PULSE 60; TEMP 98.3; O2SAT 93
[2021-09-17 08:41] LABS: Basophils % 0.5 %; Eosinophils # 0.1 K/mcL (0.0-0.6); Eosinophils % 1.8 %; Hematocrit 41.8 % (35.3-44.9); Hemoglobin 13.9 g/dL (11.5-15.4); Immature Granulocytes % 1.5 % (0-4); Lymphocytes # 2.3 K/mcL (0.6-4.6); Lymphocytes % 30.8 %; Mean Corpuscular HGB Conc 33.3 g/dL (31.6-35.5); Mean Corpuscular Hemoglobin 29.4 pg (28.0-33.3); Mean Corpuscular Volume 88.4 fL (83.0-100.0); Mean Platelet Volume 11.8 fL (9.4-12.4); Monocytes # 0.5 K/mcL (0.0-1.3); Neutrophils # 4.3 K/mcL (1.6-8.9); Platelet Count 106 K/mcL (140-400); Red Blood Count 4.73 M/mcL (3.82-4.97); Red Cell Distribution Width 14.7 % (11.5-14.5); Segmented Neutrophils % 58.4 %; White Blood Count 7.4 K/mcL (4.3-11.1)
[2021-09-17 08:59] LABS: BUN/Creatinine Ratio 17 (6-26); Blood Urea Nitrogen 18 mg/dL (6-20); Calcium 8.8 mg/dL (8.6-10.3); Carbon Dioxide 26 mEq/L (23-29); Chloride 105 mEq/L (98-107); Glucose 87 mg/dL (70-105); Osmolality,Calculated 287 (280-300); Potassium 5.5 mEq/L (3.5-5.1); Sodium 138 mEq/L (136-145); eGFR For African Americans > 60 (> 60); eGFR For Non-African Americans 54 (> 60)
[2021-09-17] MEDS: Aspirin Enteric Coated 81 MG Tablet PO SCH (10:25)
[2021-09-17] MEDS: Gabapentin 300 MG CAPSULE PO SCH ×2 (10:25→14:01)
[2021-09-17] MEDS: BuPROPion SR (12 HR) 150 MG TABLET PO SCH (10:25)
[2021-09-17] MEDS: Ranolazine 500 MG TAB.ER.12H PO SCH (10:25)
[2021-09-17] MEDS: PAROXETINE HCL 30 MG PO SCH (10:25)
[2021-09-17 12:12] VITALS: BP 92/59
== END 2021-09-17 14:23 | disposition home or self-care (01) | DRG 198 ==
LOC: 3BNU 16:16 → EMEROOARM 16:16 → SUATTDRO 09-14 11:37 → 3BNU 09-14 12:08 → SUATTDRO 09-16 16:24
PROVIDERS: ADMIT Family Medicine; ATTEND Internal Medicine